=== PATIENT | male | born 1970 | race Caucasian/White ===

== ENCOUNTER 2023-03-09 11:26 | Outpatient (REF) | payer MEDICAID, SELFPAY ==
--- NOTE | ~2023-03-09 | XR_ITS ---
EXAMINATION: XR FOOT, LEFT CLINICAL INFORMATION: Wart under big toe. COMPARISON: None available. TECHNIQUE: AP, lateral, and oblique views of the left foot. FINDINGS: There is a soft tissue swelling along the medial/plantar aspect of the distal 1st toe. No periosteal reaction or bony destructive changes are identified in this region. There is a rounded lucency with well-defined margins in the proximal metadiaphysis of the 1st proximal phalanx, which has a nonaggressive appearance. No acute fracture is seen. Anatomic alignment. Vascular calcification. Posterior calcaneal spur. XR/XR foot LT min 3V IMPRESSION: Soft tissue swelling along the medial/plantar aspect of the distal 1st toe. No evidence of periosteal reaction or bony destructive changes in the region of soft tissue swelling. Nonaggressive-appearing lucent lesion in the proximal aspect 1st proximal phalanx.
== END 2023-03-09 11:27 | disposition home or self-care (01) ==
LOC: HO.XRAY 11:26
PROVIDERS: Visit Provider Internal Medicine
DX: L84 Corns and callosities (principal)
CPT/HCPCS: 73630

== ENCOUNTER 2023-06-17 13:33 | Emergency (ER) | payer MEDICAID, SELFPAY ==
--- NOTE | ~2023-06-17 | XR_ITS ---
EXAMINATION:XR ankle RT 2V CLINICAL INFORMATION: Reason for Exam abscess, r/o osteo COMPARISON: None TECHNIQUE: 3 views frontal lateral oblique of the ankle. FINDINGS: There is extensive soft tissue swelling posterior ankle. There is no fracture or dislocation. Ankle mortise is preserved. Tibial plafond and talar dome are intact. Medial and lateral malleoli are properly aligned. There are vascular calcifications. Subtalar joint is normal. There is no osteolytic or osteoblastic lesions. XR/XR ankle RT 2V IMPRESSION: - No radiographic evidence of osteomyelitis. - There are vascular calcifications. - Soft tissue swelling posterior to the ankle.
[2023-06-17 13:46] VITALS: BP 127/80; PULSE 89; RESP 20; TEMP 36.8; O2SAT 97; BMI 27.1
--- NOTE | 2023-06-17 16:04 | ED_ITS ---
HPI - General Adult General Chief complaint: Extremity Injury, Lower Stated complaint: Abscess R ankle Time Seen by Provider: 06/17/23 15:06 Source: patient and family Mode of arrival: ambulatory Limitations: no limitations History of Present Illness HPI narrative: Patient is a 52-year-old male with history of DM presenting to the emergency department with complaint of abscess to right ankle. States his PCP is aware and he had a scheduled appointment for 06/20 for incision and drainage, however, he spoke with his PCP earlier today who advised patient come to the ED for drainage sooner as the abscess had not decreased in size. Denies pain, denies fevers. Patient reports that he is supposed to have an MRI of his right ankle this week but is unsure why. 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 MD complaint: right ankle redness and swelling Onset (ago): week(s) Location: lower extremity Radiation: non-radiation Associated symptoms: denies other symptoms Treatments prior to arrival: none Related Data Previous Rx's Medication Instructions Recorded cephalexin 500 mg capsule 500 mg PO QID #28 caps 06/17/23 Allergies Allergy/AdvReac Type Severity Reaction Status Date / Time shellfish derived Allergy Nausea and Verified 06/17/23 13:51 Vomiting Review of Systems Review of Systems: As per HPI. Yes all other systems are reviewed and are negative Constitutional: Constitutional: Reports as per HPI [facility] Past Medical History Medical History 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 dysfunction Decreased strength Diabetes mellitus, type II HTN (hypertension) Low libido Social History Social History Advance Directives: No Advance Directives Information Provided: No Physical Exam ED Vital Signs: Vital Signs - 24 hr 06/17/23 13:46 06/17/23 16:14 Temperature 98.3 F 96.3 F L Pulse Rate 89 98 Respiratory Rate 20 14 Blood Pressure 127/80 150/88 H Pulse Oximetry 97 98 Oxygen Delivery Method Room Air Room Air BMI result Body Mass Index 27.1 Vital signs have been reviewed and appear to be correct. Blood pressure normal. Heart rate normal. Respiratory rate normal. Temperature normal. Oxygen saturation normal. Const General: cooperative, healthy appearing and no acute distress Orientation/consciousness: oriented to person, oriented to place, oriented to time and patient oriented x3 Limitations: no limitations HENMT Head: Yes normocephalic and Yes atraumatic Ears: external ears normal General nose exam: Normal external nose present Face and sinus: Yes face symmetric Mouth: oropharynx normal and moist mucous membranes Throat: Yes uvula midline Eyes Pupils: Equal, round and reactive pupils present Neck Neck: Yes normal visual inspection and Yes supple Resp Effort & Inspection: normal respiratory effort and able to speak in complete sentences Auscultation: clear to auscultation bilaterally Cardio Rate: regular rate Rhythm: regular rhythm Heart sounds: S1 normal heart sound present and S2 normal heart sound present GI Palpation (GI): Soft to palpation and nontender Auscultation: normoactive bowel sounds General: Yes no CVA tenderness Back/Spine/Pelvis Back: no CVA tenderness Skin General skin exam: elasticity normal and turgor normal Neuro General: oriented to person, oriented to place, oriented to time, patient oriented x3, moves all extremities, no focal motor deficits and CN's II-XI intact bilaterally Cranial nerves: Yes Equal, round and reactive pupils present Cognition (Neuro): normal cognition Extrem General: Yes full ROM, Yes no pedal edema and Yes no calf tenderness Right upper extremity: normal to inspection, full ROM and normal capillary re fill Left upper extremity: normal to inspection, full ROM and normal capillary refill Right lower extremity: ankle Details: abnormal to inspection Details: erythematous (erythema and fluctuance to posterior ankle) Left lower extremity: abnormal to inspection (in walking boot) Psych Mental Status: mental status grossly normal Affect: normal affect Thought process: Normal thought process present Medications Administered Discontinued Medications Generic Name Dose Route Start Last Admin Trade Name Lexq PRN Reason Stop Dose Admin Lidocaine HCl 5 ml 06/17/23 16:24 06/17/23 16:27 Lidocaine Hcl 1 % Mpf 5 Ml Vial INFILTRATI 06/17/23 16:25 5 ml ONCE ONE Administration Procedures Abscess I/D Site: lower extremity Side (if applicable): right Local Anesthetic: lidocaine 1% Amount of anesthesia used (mL): 3 Amount of fluid expressed (mL): 0 Sent for culture/gram staining?: No Irrigation: No Packing used?: none Medical Decision Making Medical Decision Making MDM Narrative: Patient is a 52-year-old male with history of DM presenting to the emergency department with complaint of abscess to right ankle. On exam patient is awake, A+Ox3, VS WNL, afebrile, normal neurological exam without focal deficits, erythema, swelling, and fluctuance to posterior ankle. Given reported symptoms and physical exam findings, initial differential includes abscess, cellulitis, retrocalcaneal bursitis. Low concern for osteomyelitis but will obtain x-ray. X-ray notable for soft tissue swelling to posterior ankle, no evidence of osteomyelitis. My interpretation is in agreement with the radiologist's interpretation. Drainage attempted as per procedure note. Given lack of purulence drainage, feel symptoms are more likely related to bursitis. Dressing and Juan Diego wrap applied to ankle. Following attempted drainage patient clarified that he already had the MRI of his ankle, he just has not received the results yet. Patient advised to keep ankle elevated while home, can use Tylenol if he develops pain to the area. Instructed patient to follow-up with PCP tomorrow. Will prescribe course of prophylactic antibiotics as drainage was attempted and patient is diabetic. Return precautions discussed at bedside. Patient ve rbalized understanding of and agreement with plan. Differential Diagnosis Differential Diagnoses: The differential diagnosis associated with the presentation includes As per MDM. Independent Interpretation I performed an independent interpretation of an: Plain X-Ray Interpretation: Posterior ankle soft tissue swelling, no osteomyelitis Radiology Impression Discussion of test interpretation with radiology: I have reviewed the radiologist's reading. Radiologist Impression: XR/XR ankle RT 2V IMPRESSION: ? - No radiographic evidence of osteomyelitis. ? - There are vascular calcifications. ? - Soft tissue swelling posterior to the ankle. External Record Review External record reviewed: Inpatient record, Office record and Outpatient record Prescription Management I considered prescription management with: Antibiotic Chronic Conditions Patient?s care impacted by: Diabetes Discharge Plan Discharge Clinical Impression: Ankle swelling Patient Disposition: Home, Self-Care Instructions: Ankle Bursitis (ED), Swollen Ankle Joint (ED) Additional Instructions: You were evaluated in the emergency department today for swelling to her right ankle. Drainage was attempted without any purulence discharge noted. Your symptoms are likely related to bursitis. Please use the Juan Diego wrap for compression and keep your foot elevated while at rest. Please follow-up with your primary care provider tomorrow to discuss this ED visit. You are being prescribed a course of antibiotics, please complete the full course as prescribed. Return to the emergency department if you develop worsening redness, swelling, pain, thick yellow drainage, redness streaking up your leg, fever 100.4? F or greater, or any other concerning symptoms. Prescriptions: New cephalexin 500 mg capsule 500 mg PO QID Qty: 28 0RF
[2023-06-17 16:14] VITALS: BP 150/88; PULSE 98; RESP 14; TEMP 35.7; O2SAT 98
[2023-06-17] MEDS: Lidocaine HCl 1 % MPF 5 ML VIAL INFILTRATI (16:27)
== END 2023-06-17 17:37 | disposition home or self-care (01) ==
PROVIDERS: Emergency Provider Emergency Medicine; PCP Internal Medicine
DX: L02.415 Cutaneous abscess of right lower limb (principal); I10 Essential (primary) hypertension; E11.9 Type 2 diabetes mellitus without complications
CPT/HCPCS: 10060; 73600; 99282; 99283

== ENCOUNTER 2023-06-29 10:17 | Outpatient (AMB) | payer MEDICAID, SELFPAY ==
--- NOTE | 2023-06-29 10:27 | A.OFFVIS_ITS ---
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 Patient reports his materials engineer in [place] ordered an MRI of right ankle. Before MRI was done PCP thought he had an abscess and sent him [facility] [place] [place] ED to have it drained. States that he received MRI results which showed a torn ankle. Currently he does not have a lot pain but continues to have swelling. Hx of neuropathy. 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 He states about 4 weeks ago he was walking when he noticed a pop sensation in the right achilles tendon region. He was still able to ambulate. At the time he was being treated by a materials engineer for a left toe amputation and was placed on abx. After feeling the pop in his achilles, he noticed some swelling in the area and was seen by his PCP who referred him to the ED. While in the ED, they attempted aspiration of the swelling , they felt he had an abscess and referred him to our office for further evaluation. He has a history of diabetes and neuropathy. [facility] Medical History (Updated 06/29/23 @ 11:26 by Jamarcus Mukherjee PA-C) History of amputation of toe HTN (hypertension) Diabetes mellitus, type II 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 dysfunction Decreased strength Low libido Social History (Updated 06/29/23 @ 10:37 by SANFORD Bernal) Patient Tobacco Use Status: Never used Tobacco Current occupational status: unemployed Review of Systems Const All systems reviewed & are unremarkable except as noted in HPI and below Physical Exam Const General: cooperative, healthy appearing, comfortable, no acute distress, well developed and alert Orientation/consciousness: patient oriented x3 HEENT Head: Yes normal to inspection, Yes normocephalic and Yes atraumatic Eyes General: appearance normal, both eyes and all related structures Resp Effort & Inspection: normal respiratory effort and able to speak in complete sentences Cardio Rate: regular rate Peripheral pulses: Peripheral pulses 2+ throughout GI Palpation (GI): Soft to palpation Skin Lesions: no lesions Rashes: no rashes Neuro General: patient oriented x3 Extrem Other: Right ankle: Normal to inspection, diffuse swelling throughout the ankle and up into the region of the Achilles. He does have tenderness with a palpable defect along the Achilles tendon with a Negative Cortes?s sign. NVI. Results Reviewed Results Reviewed: MRI of the right ankle shows achilles tendon rupture up to 4cm gap Assessment & Plan Assessment & Plan (1) Cutaneous abscess of right ankle: Code(s): L02.415 - Cutaneous abscess of right lower limb Plan Dr. Guerin was available to see the patient with me today. 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 The area of more concern here is the wound that he has over the region of the Achilles. Given his history of infection and diabetes, this should be treated appropriately with wound care. The area was debrided today in the office and packed with a wet to dry dressing. He was instructed on how to perform this while at home which he should do over the weekend twice a day. I will see him on Sunday for another wound check. A STAT referral to wound care was also placed so that they can continue to follow him. A prescription of Augmentin was also sent to his pharmacy which he will begin taking. He will see us back as planned. Orders: Referrals Wound Care Referral L02.415 - Cutaneous abscess of right lower limb Medications: New [SHOWER CHAIR] As directed 1 ea 0RF amoxicillin-pot clavulanate 500-125 mg (Augmentin) 1 tab PO BID 7 days 14 tabs 0RF Patient Instructions: Scribed for Jamarcus Mukherjee PA-C, by Mariano Hurt medical biller coder, on 06/29/2023 at 10:00 AM DEMARCO. Jamarcus Vera PA-C, have personally reviewed and agree with the information entered by the scribe. Coding Level of Care Code New Pt Level 4 (82660) Diagnoses Cutaneous abscess of right ankle L02.415
== END 2023-06-29 12:01 | disposition home or self-care (01) ==
PROVIDERS: PCP Internal Medicine; Visit Provider Physician Assistant
DX: L02.415 Cutaneous abscess of right lower limb (principal)
CPT/HCPCS: 99204

== ENCOUNTER → 2023-06-29 10:17 | Outpatient (BNVA) | payer MEDICAID, SELFPAY | PROVIDERS: PCP Internal Medicine; Visit Provider Physician Assistant | DX: L02.415 Cutaneous abscess of right lower limb (principal) | CPT/HCPCS: 99212 ==

== ENCOUNTER 2023-07-02 11:07 | Outpatient (AMB) | payer MEDICAID, SELFPAY ==
--- NOTE | 2023-07-02 11:08 | MHC.OFFVIS ---
Intake Vital Signs 07/02/23 11:11 Height 6 ft Weight 200 lb BMI 27.1 Intake Visit Reasons: OV - Right ankle bursitis/swollen ankle joint Intake Note: Caleb is a 52 year old male who presents today for a follow up of right ankle pain. Patient reports no pain at the moment but having concern of his open wound bleeding. Allergies piperacillin [From Zosyn] Allergy (Verified 07/02/23 11:11) Unknown shellfish derived Allergy (Verified 07/02/23 11:11) Nausea and Vomiting tazobactam [From Zosyn] Allergy (Verified 07/02/23 11:11) Unknown HPI OV - Right ankle bursitis/swollen ankle joint HPI Details 52-year-old male who presents in the office today for a wound check right achilles. He was seen in the clinic on 06/29/2023 status post 4 weeks prior noticing a popping sensation in the right achilles with edema. He was seen in the ED where the abscess was drained. The patient reports no pain while in the office today. He is concerned that his wound is open with bleeding. Patient is also being treat by a Tandem Mill Roller for left toe amputation. Patient has a history of diabetes mellitus and neuropathy. [facility] Medical History (Updated 06/29/23 @ 11:26 by Jamarcus Mukherjee PA-C) History of amputation of toe HTN (hypertension) Diabetes mellitus, type II 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 dysfunction Decreased strength Low libido Social History Patient Tobacco Use Status: Never used Tobacco Current occupational status: unemployed Review of Systems Const All systems reviewed & are unremarkable except as noted in HPI and below Physical Exam Vital Signs: BMI result Body Mass Index 27.1 Const General: cooperative, healthy appearing and no acute distress Resp Effort & Inspection: normal respiratory effort and able to speak in complete sentences Cardio Rate: regular rate Peripheral pulses: Peripheral pulses 2+ throughout GI Palpation (GI): Soft to palpation Skin Lesions: no lesions Rashes: no rashes Extrem Other: Right ankle: Posterior ankle has a pea sized open area with exposed tendon. No surrounding drainage or purulence. Able to dorsiflex and plantarflex. Diffuse edema at the achilles tendon attachment. Assessment & Plan Assessment & Plan (1) Cutaneous abscess of right ankle: Code(s): L02.415 - Cutaneous abscess of right lower limb Plan Mr. Arias is a 52-year-old male who presents in the office today for a wound check right achilles. He was seen in the clinic on 06/29/2023 status post 4 weeks prior noticing a popping sensation in the right achilles with edema. He was seen in the ED where the abscess was drained. The patient reports no pain while in the office today. He is concerned that his wound is open with bleeding. Patient is also being treat by a Tandem Mill Roller for left toe amputation. Patient has a history of diabetes mellitus and neuropathy. We preformed a dressing change while in the office today. A new wet to dry dressing was applied. We will continue to follow his stat referral to Wound Care so he can be seen by them with recommendations of appropriate treatment. He did not waste picker his prescription of Augmentin but states he will do so today. Follow up will be in 1 weeks for a wound check, or sooner if needed. Patient Instructions: Scribed for Cecy Collado PA-C by Marquita Montanez medical grade shoemaker, on 07/02/2023 at 11:11 am, EST. Coding Level of Care Code Est Pt Level 3 (71265) Diagnoses Cutaneous abscess of right ankle L02.415
[2023-07-02 11:11] VITALS: BMI 27.1
== END 2023-07-02 11:34 | disposition home or self-care (01) ==
PROVIDERS: PCP Internal Medicine; Visit Provider Physician Assistant
DX: L02.415 Cutaneous abscess of right lower limb (principal)
CPT/HCPCS: 99213

== ENCOUNTER → 2023-07-02 11:07 | Outpatient (BNVA) | payer MEDICAID, SELFPAY | PROVIDERS: PCP Internal Medicine; Visit Provider Physician Assistant | DX: L02.415 Cutaneous abscess of right lower limb (principal) | CPT/HCPCS: 99212 ==

== ENCOUNTER 2023-07-05 13:38 | Outpatient (AMB) | payer MEDICAID, SELFPAY ==
--- NOTE | 2023-07-05 13:45 | A.OFFVIS_ITS ---
Intake Vital Signs 07/05/23 13:49 Height 6 ft Weight 200 lb BMI 27.1 Intake Visit Reasons: OV - Right ankle bursitis/swollen ankle joint Intake Note: Caleb presents today for his cutaneous abscess of right ankle wound check visit . States he has doing dressing changes as best he can. States he has notice very little improvement. Allergies piperacillin [From Zosyn] Allergy (Verified 07/05/23 13:49) Unknown shellfish derived Allergy (Verified 07/05/23 13:49) Nausea and Vomiting tazobactam [From Zosyn] Allergy (Verified 07/05/23 13:49) Unknown HPI OV - Right ankle bursitis/swollen ankle joint HPI Details 52-year-old male who presents in the off ice today for a wound check and follow up of right ankle pain. The patient reports he has been doing the dressing changes as best he can. He states he has been trying to change the dressing 2 times a day. However, yesterday he states he was only able to change the dressing one time. He states he has notice very little improvement. He states it has had very minimal bleeding. Patient has a wound care appointment on 07/12/2023. He expresses that he would like to further pursue the hospital as he feels the ED did not fully evaluate his injury. Patient is being treat by a Durable Medical Equipment Technician for left toe amputation. Patient has a history of diabetes mellitus and neuropathy. [facility] Medical History (Updated 06/29/23 @ 11:26 by Jamarcus Mukherjee PA-C) History of amputation of toe HTN (hypertension) Diabetes mellitus, type II 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 dysfunction Decreased strength Low libido Social History Patient Tobacco Use Status: Never used Tobacco Current occupational status: unemployed Review of Systems Const All systems reviewed & are unremarkable except as noted in HPI and below Physical Exam Vital Signs: BMI result Body Mass Index 27.1 Const General: cooperative, healthy appearing and no acute distress Resp Effort & Inspection: normal respiratory effort and able to speak in complete sentences Cardio Rate: regular rate Peripheral pulses: Peripheral pulses 2+ throughout GI Palpation (GI): Soft to palpation Skin Lesions: no lesions Rashes: no rashes Extrem Other: Right ankle: Posterior ankle has a pea sized open area with exposed tendon. No surrounding drainage or purulence. Able to dorsiflex and plantarflex. Diffuse edema at the achilles tendon attachment. Assessment & Plan Assessment & Plan (1) Cutaneous abscess of right ankle: Code(s): L02.415 - Cutaneous abscess of right lower limb Plan Mr. Arias is a 52-year-old male who presents in the office today for a wound check and follow up of right ankle pain. The patient reports he has been doing the dressing changes as best he can. He states he has been trying to change the dressing 2 times a day. However, yesterday he states he was only able to change the dressing one time. He states he has notice very little improvement. He states it has had very minimal bleeding. Patient has a wound care appointment on 07/12/2023. He expresses that he would like to further pursue the hospital as he feels the ED did not fully evaluate his injury. He did ask my opinion on this matter, however, I did not see the patient while in the ED nor at his first appointment outpatient in our office. Therefore, I declined to comment any further. Patient is being treat by a Durable Medical Equipment Technician for left toe amputation. Patient has a history of diabetes mellitus and neuropathy. The patient had his dressing changed while in the office today. He will continue to changes the dressing 2 time a day. He was educated on worsening signs of infection, which include but are not limited to erythema, edema, pain, drainage, or warmth. If he is to experience any of these symptoms he is to contact the office immediately or present to the ED. He will follow up with Wound Care for further evaluation and treatment of the open wound. I discussed with the patient about treatments for the achilles, both conservative and surgical treatments. He would like to know why his PCP and the ED did not look further into the ankle to see if it was actually an abscess. Follow up with Orthopedics will be PRN, or sooner if needed. Patient Instructions: Scribed for Cecy Collado PA-C by rm Hanson scribe, on 07/05/2023 at 1:47 pm, EST. Coding Level of Care Code Est Pt Level 3 (68436) Diagnoses Cutaneous abscess of right ankle L02.415
[2023-07-05 13:49] VITALS: BMI 27.1
== END 2023-07-05 14:02 | disposition home or self-care (01) ==
PROVIDERS: PCP Internal Medicine; Visit Provider Physician Assistant
DX: L02.415 Cutaneous abscess of right lower limb (principal)
CPT/HCPCS: 99213

== ENCOUNTER → 2023-07-05 13:38 | Outpatient (BNVA) | payer MEDICAID, SELFPAY | PROVIDERS: PCP Internal Medicine; Visit Provider Physician Assistant | DX: L02.415 Cutaneous abscess of right lower limb (principal) | CPT/HCPCS: 99212 ==

== ENCOUNTER 2023-07-12 08:29 | Outpatient (RCR) | payer MEDICAID, SELFPAY | END 2023-10-31 17:00 | disposition home or self-care (01) | LOC: HO.WCC 08:29 | PROVIDERS: PCP Internal Medicine; Visit Provider Surgery | DX: E11.622 Type 2 diabetes mellitus with other skin ulcer (principal); L97.812 Non-pressure chronic ulcer of other part of right lower leg with fat layer exposed; M66.871 Spontaneous rupture of other tendons, right ankle and foot | CPT/HCPCS: 11042; 11043; 97597; 99212; 99213 ==

== ENCOUNTER 2023-09-17 15:02 | Outpatient (AMB) | payer MEDICAID, SELFPAY ==
--- NOTE | 2023-09-17 15:03 | MHC.OFFVIS ---
Intake Intake Visit Reasons: Erectile dysfunction Intake Note: New Patient presents for initial visit for erectile dysfunction Urology Medications: Viagra Blood Thinner: none Diabetic: yes Special Services Agent Required: No Accompanied by: Self / Same As Patient Allergies piperacillin [From Zosyn] Allergy (Verified 09/17/23 20:06) Unknown shellfish derived Allergy (Verified 09/17/23 20:06) Nausea and Vomiting tazobactam [From Zosyn] Allergy (Verified 09/17/23 20:06) Unknown Medication List - Last Reconciled 09/17/23 by LEAH Delarosa- amlodipine 5 mg PO DAILY canagliflozin-metformin 50-500 mg ER (Invokamet XR) 2 tabs PO QAM glipizide 5 mg PO TID ketoconazole 2% topical DAILY omeprazole 20 mg PO QAM [SHOWER CHAIR As directed] sildenafil (Viagra) 100 mg PO .prn PRN 90 days simvastatin 20 mg PO BEDTIME valsartan-hydrochlorothiazide 320-25 mg 1 tab PO DAILY HPI HPI Comments History of Present Illness Details Caleb is a pleasant 52-year-old male patient of Dr. Preciado. 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 He presents to the office today as a new patient for low libido and erectile dysfunction. In discussion with the patient today he reports noting erectile dysfunction since the age of [age] years old. He reports previously following up with Dr. Franks in the past at which time recommendations were made for a vacuum pump and penile ring along with p.o. erectile dysfunction medications for treatment of his erectile dysfunction. However, patient feels his erectile dysfunction is worsening as he is now experiencing low libido. Discussed at length affects of diabetes on erectile dysfunction. When asked he reports last A1c was approximately 8.0. He is also reporting retrograde ejaculation. He reports previously trying Viagra as well as Cialis however felt Viagra was more effective. When asked he denies any bothersome urinary issues. He reports be happy with current voiding parameters. He denies urinary urgency, urinary frequency, incontinence, nocturia, hematuria, dysuria, foul smelling urine, changes to urinary stream, flank pain, fever, and or chills. Discussed at length potential causes for erectile dysfunction and low libido. Discussed further workup with testosterone free and total as well as PSA. Discussed and stressed the importance of management of diabetes for improvement in erectile dysfunction. Discussed at length potential treatment options for erectile dysfunction. All questions were answered. [facility] Medical History (Updated 09/17/23 @ 16:02 by MIKE Delarosa) History of amputation of toe HTN (hypertension) Diabetes mellitus, type II 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 dysfunction Decreased strength Low libido Patient Tobacco Use Status: Never used Tobacco Current occupational status: unemployed Review of Systems Const Reports as per [facility] Eyes Reports no additional complaints ENT Reports no additional complaints Card Reports as per [facility] Resp Reports no additional complaints GI Reports as per [facility] Reports as per [facility] Musc Reports as per [facility] Neuro Reports no additional complaints Psych Reports no additional complaints Endo Reports as per HPI Physical Exam Const General: cooperative, comfortable, no acute distress, well developed, alert and awake Orientation/consciousness: patient oriented x3 Limitations: no limitations HEENT Head: Yes normal to inspection, Yes normocephalic and Yes atraumatic Ears: hearing grossly normal bilaterally Eyes General: appearance normal, both eyes and all related structures Neck Neck: Yes normal visual inspection and Yes trachea midline Chest Chest palpation & inspection: normal inspection of the chest Resp Effort & Inspection: normal respiratory effort and able to speak in complete sentences Cardio Rate: regular rate GI Inspection: Yes normal to inspection General: Yes no CVA tenderness Back/Spine/Pelvis Back: no CVA tenderness Skin General skin exam: no rashes or lesions noted Neuro General: patient oriented x3 Extrem General: Yes normal to inspection Psych Appearance: grossly normal and well kempt Mental Status: mental status grossly normal Speech and movement: Normal speech and movement present and Clear speech present Affect: normal affect Attitude: cooperative Thought process: Normal thought process present Thought content: Normal thought content present Insight: Fair insight present (Psych) Judgement: Fair judgement present (Psych) Results AMB Urinalysis, Automated UA Leukoctes 0 Amparo/uL Last Edit by Stevie Harper on 09/17/23 15:21 UA Nitrite Negative Last Edit by Stevie Harper on 09/17/23 15:21 UA Urobilinogen 0.2 mg/dL Last Edit by Stevie Harper on 09/17/23 15:21 UA Protein 0 mg/dL Last Edit by Stevie Harper on 09/17/23 15:21 UA pH 6.5 Last Edit by Stevie Harper on 09/17/23 15:21 UA Blood 0 Yadiel/uL Last Edit by Stevie Harper on 09/17/23 15:21 UA Specific [place] 1.010 Last Edit by Stevie Harper on 09/17/23 15:21 UA Ketone Negative Last Edit by Stevie Harper on 09/17/23 15:21 UA Bilirubin 0 mg/dL Last Edit by Stevie Harper on 09/17/23 15:21 UA Glucose 1000 mg/dL Last Edit by Stevie Harper on 09/17/23 15:21 Results Reviewed Results Reviewed: Laboratory Last Values Urine pH (Auto) 6.5 09/17/23 15:09 Specific [place] (Auto) 1.010 09/17/23 15:09 Urine Protein (Auto) 0 mg/dL 09/17/23 15:09 Glucose (UA)(Auto) 1000 mg/dL 09/17/23 15:09 Urine Ketones (Auto) Negative 09/17/23 15:09 Urine Blood (Auto) 0 Yadiel/uL 09/17/23 15:09 Urine Nitrite (Auto) Negative 09/17/23 15:09 Urine Bilirubin (Auto) 0 mg/dL 09/17/23 15:09 Urine Urobilinogen (Auto) 0.2 mg/dL 09/17/23 15:09 Leukocyte Esterase (Auto) 0 Amparo/uL 09/17/23 15:09 Assessment & Plan Assessment & Plan (1) Low libido: Code(s): R68.82 - Decreased libido (2) Erectile dysfunction associated with type 2 diabetes mellitus: Code(s): E11.69 - Type 2 diabetes mellitus with other specified complication; N52.1 - Erectile dysfunction due to diseases classified elsewhere Plan In office urinalysis results reviewed with the patient today; as noted above. Discussed at length potential causes of erectile dysfunction and low libido. Discussed at length potential treatment options for erectile dysfunction. Start as needed Viagra as discussed and prescribed. Discussed and stressed the importance of managing diabetes for improvement in erectile dysfunction as well as overall health and well-being. Will obtain PSA, testosterone, free testosterone, and SHBG for further assessment evaluation. Patient denies any bothersome urinary issues at this time. Patient reports to be happy with current voiding parameters. Follow-up in 2-4 weeks with labs to be completed prior; or sooner with any issues, concerns, and or questions. Orders: Orders AMB Urinalysis Automated Today Z13.9 - Encounter for screening, unspecified Prostate Specific Antigen Today N40.0 - Benign prostatic hyperplasia without lower urinary tract symptoms Sex Hormone Binding Globulin Today E11.69 - Type 2 diabetes mellitus with other specified complication, N52.1 - Erectile dysfunction due to diseases classified elsewhere, R68.82 - Decreased libido Testosterone, Free/Total Today E11.69 - Type 2 diabetes mellitus with other specified complication, N52.1 - Erectile dysfunction due to diseases classified elsewhere Medications: New sildenafil (Viagra) [id number] [facility] [id number] Member [id number] 100 mg PO .prn 90 days PRN 30 tabs 0RF sexual activity Patient Instructions: The patient had an opportunity to ask questions regarding the treatment plan. All questions were answered. Physical exam, labs, and imaging were discussed and reviewed in detail. As well as risks, benefits, and discussion of treatment choices. No major barriers to understanding were identified. The patient expressed understanding and agreement with the above treatment plan. The patient was made aware they should contact our office by phone for worsening of their current condition, the appearance of new symptoms, or with any questions or concerns. Compliance is encouraged with any medications and follow up testing that is ordered. It is a privilege to be allowed the opportunity to participate in? your urological care.? Again, if you have any questions or concerns If you have any questions or concerns please do not hesitate to contact me. The office is [phone]. This note is constructed using voice recognition software. While every effort has been made to ensure accuracy glazing machine operator errors may have been included. Yours sincerely, MIKE Delarosa Coding Level of Care Code New Pt Level 4 (34943) Diagnoses Low libido R68.82 Erectile dysfunction associated with type 2 diabetes mellitus E11.69; N52.1
== END 2023-09-17 15:57 | disposition home or self-care (01) ==
PROVIDERS: PCP Internal Medicine; Referring Provider Internal Medicine; Visit Provider Nurse Practitioner Family
DX: R68.82 Decreased libido (principal); E11.69 Type 2 diabetes mellitus with other specified complication; N52.1 Erectile dysfunction due to diseases classified elsewhere; Z13.9 Encounter for screening, unspecified
CPT/HCPCS: 99204

== ENCOUNTER → 2023-09-17 15:02 | Outpatient (BNVA) | payer MEDICAID, SELFPAY | PROVIDERS: PCP Internal Medicine; Referring Provider Internal Medicine; Visit Provider Nurse Practitioner Family | DX: N40.0 Benign prostatic hyperplasia without lower urinary tract symptoms (principal); E11.69 Type 2 diabetes mellitus with other specified complication; N52.03 Combined arterial insufficiency and corporo-venous occlusive erectile dysfunction; N53.14 Retrograde ejaculation; R68.82 Decreased libido | CPT/HCPCS: 81003; 99212 ==

== ENCOUNTER 2023-09-21 09:02 | Outpatient (REF) | payer MEDICAID, SELFPAY ==
[2023-09-21 11:02] LABS: Prostate Specific Antigen 1.87 ng/mL (<0.05-4.0)
[2023-09-22 06:44] LABS: Sex Hormone Binding Globulin 35 nmol/L (10-50)
[2023-09-25 23:29] LABS: Testosterone, Free 54.6 pg/mL (35.0-155.0); Testosterone, Total 323 ng/dL (250-1100)
== END 2023-09-21 09:03 | disposition home or self-care (01) ==
LOC: HO.LAB 09:02
PROVIDERS: PCP Internal Medicine; Visit Provider Nurse Practitioner Family
DX: E11.69 Type 2 diabetes mellitus with other specified complication (principal); N52.1 Erectile dysfunction due to diseases classified elsewhere; R68.82 Decreased libido; N40.0 Benign prostatic hyperplasia without lower urinary tract symptoms
CPT/HCPCS: 36415; 84153; 84270; 84402; 84403

== ENCOUNTER 2023-10-08 15:27 | Outpatient (AMB) | payer MEDICAID, SELFPAY ==
--- NOTE | 2023-10-08 15:27 | A.OFFVIS_ITS ---
Intake Intake Visit Reasons: 2w/labs(set) Intake Note: Patient presents for follow up visit for erectile dysfunction/labs (psa 1.87) (testosterone 323) Urology Medications: Viagra Blood Thinner: none Diabetic: yes Cook Helper Juice Required: No Accompanied by: Self / Same As Patient Allergies piperacillin [From Zosyn] Allergy (Verified 10/08/23 19:51) Unknown shellfish derived Allergy (Verified 10/08/23 19:51) Nausea and Vomiting tazobactam [From Zosyn] Allergy (Verified 10/08/23 19:51) Unknown Medication List - Last Reconciled 10/08/23 by REHANA DelarosaP- amlodipine 5 mg PO DAILY canagliflozin-metformin 50-500 mg ER (Invokamet XR) 2 tabs PO QAM glipizide 5 mg PO TID ketoconazole 2% topical DAILY omeprazole 20 mg PO QAM [SHOWER CHAIR As directed] sildenafil (Viagra) 100 mg PO .prn PRN 90 days simvastatin 20 mg PO BEDTIME tadalafil (Cialis) 5 mg PO DAILY 90 days valsartan-hydrochlorothiazide 320-25 mg 1 tab PO DAILY HPI HPI Comments History of Present Illness Details Caleb is a pleasant 53-year-old male patient of Dr. Preciado. 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 He is being followed up on today via telehealth for follow-up of his low libido and erectile dysfunction. Of note, patient was seen approximately 1 month ago at which time testosterone, free testosterone, SHBG, and PSA were ordered for further assessment evaluation. These results reviewed with the patient today. 10/13--PSA: 1.9 10/13--Testosterone: 323 free Testostero ne: 54.6 10/13--SHGB: 35 In discussion with the patient today he reports noting erectile dysfunction since the age of [age] years old. He reports previously following up with Dr. Franks in the past at which time recommendations were made for a vacuum pump and penile ring along with p.o. erectile dysfunction medications for treatment of his erectile dysfunction. However, patient feels his erectile dysfunction is worsening as he is now experiencing low libido. Discussed at length affects of diabetes on erectile dysfunction. When asked he reports last A1c was approximately 8.0. He is also reporting retrograde ejaculation. Discussed trial of low-dose 5 mg of Cialis daily with as needed p.r.n. dosing 1-2 hours prior to sexual activity. Patient reports feeling Viagra is somewhat affective for his erectile dysfunction. Discussed at length treatment options for erectile dysfunction. Patient would like to continue with p.o. medications at this time. He otherwise denies any bothersome urinary issues. He reports be happy with current voiding parameters. He denies urinary urgency, urinary frequency, incontinence, nocturia, hematuria, dysuria, foul-smelling urine, changes to urinary stream, flank pain, fever, and or chills. Discussed at length potential causes for erectile dysfunction and low libido. Discussed and stressed the importance of management of diabetes for improvement in erectile dysfunction. Discussed at length potential treatment options for erectile dysfunction. All questions were answered. [facility] Medical History History of amputation of toe HTN (hypertension) Diabetes mellitus, type II 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 dysfunction Decreased strength Low libido Social History Patient Tobacco Use Status: Never used Tobacco Current occupational status: unemployed Review of Systems Const Reports as per HPI Eyes Reports no additional complaints ENT Reports no additional complaints Card Reports as per HPI Resp Reports no additional complaints GI Reports as per HPI Reports as per HPI Musc Reports as per HPI Neuro Reports no additional complaints Psych Reports no additional complaints Endo Reports as per HPI Physical Exam Const General: cooperative Resp Effort & Inspection: able to speak in complete sentences Psych Attitude: cooperative Thought content: Normal thought content present Insight: Fair insight present (Psych) Judgement: Fair judgement present (Psych) Assessment & Plan Assessment & Plan (1) Low libido: Code(s): R68.82 - Decreased libido (2) Erectile dysfunction associated with type 2 diabetes mellitus: Code(s): E11.69 - Type 2 diabetes mellitus with other specified complication; N52.1 - Erectile dysfunction due to diseases classified elsewhere Plan Recent labs reviewed the patient today; as noted above Discussed at length potential causes of erectile dysfunction and low libido. Discussed at length potential treatment options for erectile dysfunction. Start Cialis 5 mg daily Discussed and stressed the importance of managing diabetes for improvement in erectile dysfunction as well as overall health and well-being. Patient denies any bothersome urinary issues at this time. Patient reports to be happy with current voiding parameters. Will obtain testosterone in 3 months Follow-up in 3 months with labs to be completed prior; or sooner with any issues, concerns, and or questions. Orders: Orders Testosterone, Free/Total Today E11.69 - Type 2 diabetes mellitus with other specified complication, N52.1 - Erectile dysfunction due to diseases classified elsewhere Medications: New tadalafil (Cialis) Show this coupon at the pharmacy. [id number] [facility] [id number] Member [id number] 5 mg PO DAILY 90 days 90 tabs 0RF Patient Instructions: The patient had an opportunity to ask questions regarding the treatment plan. All questions were answered. Physical exam, labs, and imaging were discussed and reviewed in detail. As well as risks, benefits, and discussion of treatment choices. No major barriers to understanding were identified. The patient expressed understanding and agreement with the above treatment plan. The patient was made aware they should contact our office by phone for worsening of their current condition, the appearance of new symptoms, or with any questions or concerns. Compliance is encouraged with any medications and follow up testing that is ordered. It is a privilege to be allowed the opportunity to participate in? your urological care.? Again, if you have any questions or concerns If you have any questions or concerns please do not hesitate to contact me. The office is [phone]. This note is constructed using voice recognition software. While every effort has been made to ensure accuracy industrial automation engineer errors may have been included. Yours sincerely, REHANA Del[facility]osaW[facility] Telehealth Telehealth Location of provider rendering services: practice address Location of patient: address on file Patient Identification confirmed using: Name, : Yes Telehealth method: voice only Patient verbally consented to treatment: Yes Patient verbally consented to billing insurance company: Yes Patient informed of any privacy concerns related to visit: Yes Minutes spent on Phone/Video with Pt.: 15 Coding Level of Care Code Tele Est Pt Level 3 (33490) Diagnoses Low libido R68.82 Erectile dysfunction associated with type 2 diabetes mellitus E11.69; N52.1 Time Spent (min) 15
== END 2023-10-08 16:08 | disposition home or self-care (01) ==
LOC: HO.HUSH 15:27
PROVIDERS: PCP Internal Medicine; Visit Provider Nurse Practitioner Family
DX: R68.82 Decreased libido (principal); E11.69 Type 2 diabetes mellitus with other specified complication; N52.1 Erectile dysfunction due to diseases classified elsewhere
CPT/HCPCS: 99213

== ENCOUNTER → 2023-10-08 15:27 | Outpatient (BNVA) | payer MEDICAID, SELFPAY | PROVIDERS: PCP Internal Medicine; Visit Provider Nurse Practitioner Family ==

== ENCOUNTER 2024-01-11 08:44 | Outpatient (RCR) | payer MEDICAID, SELFPAY ==
--- NOTE | ~2024-01-11 | XR_ITS ---
EXAMINATION: XR FOOT, LEFT CLINICAL INFORMATION: Nonhealing wound left foot, attention plantar first metatarsal, rule out osteomyelitis. COMPARISON: 03/09/2023 TECHNIQUE: AP, lateral, and oblique views of the left foot. FINDINGS: Interval resection of the great toe and distal aspect of the first metatarsal. Extensive vascular calcifications. Small dorsal calcaneal spur. The distal plantar aspect of the partially resected first metatarsal demonstrates cortical irregularity, possibly related to postsurgical change, but could also consider osteomyelitis given the clinical history presented. There is also deformity at the distal aspect of the second metatarsal with attenuated appearance of the second metatarsal head and abundant adjacent hypertrophic bone. More moderate interval destructive changes are seen at the third and fourth metatarsal heads. XR/XR foot LT min 3V IMPRESSION: 1. Interval resection of the great toe and distal aspect of the first metatarsal. The distal plantar aspect of the partially resected first metatarsal demonstrates cortical irregularity, possibly related to postsurgical change, but could also consider osteomyelitis given the clinical history presented. 2. There is also deformity at the distal aspect of the second metatarsal with attenuated appearance of the second metatarsal head and abundant adjacent hypertrophic bone. More moderate interval destructive changes are seen at the third and fourth metatarsal heads. Differential considerations include postsurgical/trauma change, degenerative process, and/or osteomyelitis or other process. 3. Recommend correlation with clinical exam and additional and possibly additional imaging with MRI to determine further management.
[2024-01-11 10:25] LABS: MANUAL DIFF FLAG NO
[2024-01-11 10:42] LABS: Basophils Percent Auto 0.5 % (0-2); Eosinophils Absolute Auto 0.3 X10*3/uL (0.0-0.4); Eosinophils Percent Auto 4.2 % (0-4); Hematocrit 37.3 % (42.0-52.0); Hemoglobin 11.9 g/dl (14.0-18.0); Imm Gran Abs Auto 0.01 X10*3/uL (0.00-0.03); Imm Gran Pct Auto 0.2 % (0.0-0.4); Lymphocytes Absolute Auto 1.6 X10*3/uL (1.2-4.9); Lymphocytes Percent Auto 25.5 % (20-40); Mean Corpuscular HGB Conc 31.9 g/dl (31.0-36.0); Mean Corpuscular Hemoglobin 27.9 pg (27.0-33.0); Mean Corpuscular Volume 87.6 fL (80.0-98.0); Mean Platelet Volume 9.6 fL (9.4-12.4); Monocytes Absolute Auto 0.4 X10*3/uL (0.1-1.2); Neutrophils Absolute Auto 3.9 x10*3/uL (2.0-8.3); Neutrophils Percent Auto 62.6 % (45-73); Platelet Count 262 X10*3/uL (160-400); Red Blood Count 4.26 X10*6/uL (4.60-5.80); Red Cell Distribution Width 14.3 % (11.0-16.0); White Blood Count 6.2 X10*3/uL (4.8-10.8)
[2024-01-11 10:52] LABS: Estimated Average Glucose 143 mg/dL; Hemoglobin A1c % 6.6 % (<6.0)
[2024-01-11 11:11] LABS: Anion Gap 11 (12-20); Blood Urea Nitrogen 30 mg/dL (9-16); C Reactive Protein 0.21 mg/dL (< or = 0.50); Calcium 9.2 mg/dL (8.4-10.2); Carbon Dioxide 26 mmol/L (22-29); Chloride 108 mmol/L (96-108); Estimated Glomerular Filt Rate 52; Glucose Random 81 mg/dL (60-115); Sodium 140 mmol/L (135-145)
[2024-01-11 11:28] LABS: Erythrocyte Sedimentation Rate 23 MM/HR (0-15)
== END 2024-06-13 10:30 | disposition home or self-care (01) ==
LOC: HO.WCC 08:44
PROVIDERS: Physician Assistant; PCP Internal Medicine; Visit Provider Surgery
DX: E11.621 Type 2 diabetes mellitus with foot ulcer (principal); L97.522 Non-pressure chronic ulcer of other part of left foot with fat layer exposed; E11.40 Type 2 diabetes mellitus with diabetic neuropathy, unspecified; I10 Essential (primary) hypertension; M86.672 Other chronic osteomyelitis, left ankle and foot; Z89.429 Acquired absence of other toe(s), unspecified side
CPT/HCPCS: 11042; 36415; 73630; 80048; 83036; 84134; 85025; 85652; 86140

== ENCOUNTER 2024-02-26 15:21 | Outpatient (REF) | payer MEDICAID, SELFPAY ==
--- NOTE | ~2024-02-26 | MR_ITS ---
EXAMINATION: MR FOOT WITHOUT AND WITH CONTRAST, LEFT CLINICAL INFORMATION: Wound at the first metatarsal head. Evaluate for osteomyelitis. Swelling. Prior surgery. COMPARISON: Left foot radiographs dated 03/09/2023 and 01/11/2024. TECHNIQUE: MRI of the left foot was performed before and after the intravenous administration of 9 mL Gadavist on a high-field scanner. FINDINGS: Postsurgical change consistent with first metatarsal and phalangeal resection is redemonstrated. Soft tissue ulceration along the medial/plantar aspect of the surgical area with mild skin thickening and mild postcontrast enhancement which could represent postsurgical result versus chronic cellulitis. No organized fluid collection or drainable abscess formation. There is prominent marrow edema throughout the second through fifth metatarsals as well as within the middle and lateral cuneiforms and cuboid. Minimal edema within the medial cuneiform. Prominent associated postcontrast enhancement. Bony remodeling with chronic periosteal reaction at the second metatarsal head as well as, to a lesser degree, at the third and fourth metatarsal heads. Findings could represent sequela of chronic osteomyelitis. Chronic stress injuries could be considered, however, are thought less likely. The visualized flexor and extensor tendons are intact. Edema throughout the intrinsic musculature of the foot. Intact Lisfranc ligament. Synovial recess versus ganglion cyst along the lateral aspect of the fifth tarsometatarsal joint measuring up to 2.7 cm. Diffuse, full-thickness articular cartilage loss at the tarsometatarsal joints with underlying subchondral cystic change, most severe at the fifth tarsometatarsal joint. MR/MR foot LT wo/w con IMPRESSION: 1. Postsurgical change consistent with first metatarsal and phalangeal resection. Soft tissue ulceration along the medial/plantar aspect of the surgical area with mild skin thickening and postcontrast enhancement which could represent postsurgical result versus chronic cellulitis. No organized fluid collection or drainable abscess formation. No evidence of osteomyelitis within the persistent first metatarsal. 2. Prominent marrow edema throughout the second through fifth metatarsals as well as within the middle and lateral cuneiforms and cuboid. Prominent bony remodeling and chronic periosteal reaction at the second metatarsal head as well as less prominently at the third and fourth metatarsal heads. Minimal edema within the medial cuneiform. Findings could represent sequela of chronic osteomyelitis. Chronic stress injuries could be considered, however, are thought less likely. 3. Prominent osteoarthritis at the tarsometatarsal joints, most severe at the fifth tarsometatarsal joint. Synovial recess versus ganglion cyst along the lateral aspect of the fifth tarsometatarsal joint measuring up to 2.7 cm.
[2024-02-26] MEDS: gadobutroL 10 ML VIAL IVPUSH (16:18)
== END 2024-02-26 15:22 | disposition home or self-care (01) ==
LOC: HO.MRI 15:21
PROVIDERS: PCP Internal Medicine; Visit Provider Internal Medicine
DX: S91.302A Unspecified open wound, left foot, initial encounter (principal)
CPT/HCPCS: 73720; A9585

== ENCOUNTER 2024-03-14 07:15 | Emergency (ER) | payer MEDICAID, SELFPAY ==
--- NOTE | ~2024-03-14 | XR_ITS ---
EXAMINATION: XR FOOT, LEFT CLINICAL INFORMATION: New second digit wound. COMPARISON: 02/26/2024 and 01/11/2024 TECHNIQUE: AP, lateral, and oblique views of the left foot. FINDINGS: Status post resection of the great toe and distal first metatarsal. Vascular calcifications are present. There is stable deformity of the second through fourth metatarsal heads. There is new ulceration involving the distal aspect of the second toe. There is no underlying bone destruction or significant periosteal reaction. XR/XR foot LT min 3V IMPRESSION: New ulceration involving the distal second toe without underlying bony abnormality.
[2024-03-14 07:20] VITALS: BP 159/88; PULSE 90; RESP 18; TEMP 36.2; O2SAT 98; BMI 27.9
[2024-03-14 07:49] VITALS: BP 143/83; PULSE 80; RESP 18; TEMP 36.7; O2SAT 97
[2024-03-14 07:57] LABS: Glucose, Whole Blood 179 mg/dL (60-115)
--- NOTE | 2024-03-14 09:15 | ED.LOWEXIN ---
HPI - Extremity Injury (Lower) General Chief Complaint: Extremity Injury, Lower Stated Complaint: toe inj Time Seen by Provider: 03/14/24 09:15 Source: patient Mode of arrival: ambulatory Limitations: no limitations History of Present Illness HPI Narrative: Patient is a 53-year-old male with past medical history of diabetes who presents emergency department for evaluation of a new wound to the left 2nd digit. Reports that something must have happened overnight . Does not recall exact events. But when he awoke this morning there was drainage and blood coming from the toe. He wrapped it with a bandage in sought evaluation here in the emergency department. He reports a history of a diabetic wound to the plantar aspect of the left foot MTP, which he is following with [facility] and Dr. Lima, states that a recent MRI has shown osteomyelitis, he has not currently on any antibiotics, he is awaiting to see infectious disease on 03/19/2024. Related Data Home Medications ?Medication ?Instructions ?Recorded ?Confirmed amlodipine 5 mg tablet 5 mg PO DAILY 06/29/23 canagliflozin 50 mg-metformin ER 2 tab PO QAM 06/29/23 500 mg tablet,extended release 24 hr (Invokamet XR) glipizide 5 mg tablet 5 mg PO TID 06/29/23 ketoconazole 2 % shampoo topical DAILY 06/29/23 omeprazole 20 mg capsule,delayed 20 mg PO QAM 06/29/23 release simvastatin 20 mg tablet 20 mg PO BEDTIME 06/29/23 valsartan 320 1 tab PO DAILY 06/29/23 mg-hydrochlorothiazide 25 mg tablet Previous Rx's ?Medication ?Instructions ?Recorded SHOWER CHAIR #1 ea 06/29/23 sildenafil 100 mg tablet (Viagra) 100 mg PO .prn PRN sexual activity 09/19/23 90 days #30 tabs tadalafil 5 mg tablet (Cialis) 5 mg PO DAILY 90 days #90 tabs 10/08/23 cephalexin 500 mg capsule 500 mg PO QID #27 caps 03/14/24 doxycycline hyclate 100 mg capsule 100 mg PO BID #13 caps 03/14/24 Allergies Allergy/AdvReac Type Severity Reaction Status Date / Time piperacillin [From Zosyn] Allergy Unknown Verified 03/14/24 07:21 shellfish derived Allergy Nausea and Verified 03/14/24 07:21 Vomiting tazobactam [From Zosyn] Allergy Unknown Verified 03/14/24 07:21 Review of Systems Review of Systems: Yes all other systems are reviewed and are negative [facility] Past Medical History Attestation statement: The following information was validated with the patient. Source: old records reviewed Medical History HTN (hypertension) Diabetes mellitus, type II 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 dysfunction Decreased strength Low libido Surgical History History of amputation of toe Social History Social History Patient Tobacco Use Status: Never used Tobacco Advance Directives: No Current occupational status: unemployed Physical Exam Vital Signs: Vital Signs: Last Vital Signs Temp 98.2 F 03/14/24 11:05 Pulse 72 03/14/24 11:05 Resp 16 03/14/24 11:05 BP 131/80 03/14/24 11:05 Pulse Ox 98 03/14/24 11:05 O2 Del Method Room Air 03/14/24 11:05 BMI result Body Mass Index 27.9 Appearance: Alert.?Oriented to person, place and time. No acute distress.?Normal affect.? Neck: Normal inspection.? Neck supple.?? CVS: Heart sounds normal. Normal heart rate and rhythm.? Pulses normal.?? Respiratory: No respiratory distress.? Lung sounds clear to auscultation bilaterally?? Skin: Skin warm and dry.? Normal skin color.? Extremities: No lower extremity edema.? No calf ttp. Avulsion of nail to left 2nd digit of foot with surrounding erythema and swelling, tenderness upon palpation. Neuro: Moves all extremities spontaneously. Sensation intact bilaterally. Ambulates with normal steady gait. Medical Decision Making Medical Decision Making MDM Narrative: patient is a 53-year-old male with past medical history of type 2 diabetes, hypertension who presents emergency department for evaluation of a new wound to the left 2nd digit as per HPI of unknown etiology. XR was obtained to exclude osseous abnormality including fracture/dislocation there is no acute abnormality, aside from ulceration to the distal tip of the digit as seen on physical examination.. wound was cleansed with normal saline and povidone iodine and a wet-to-dry dressing was applied. Will treat with cephalexin and doxycycline and advised close outpatient follow-up with [facility]/primary care provider. Discussed worrisome signs and symptoms that would warrant re-evaluation in the emergency department. All questions answered. Stable for discharge. Differential Diagnosis Differential Diagnoses: The differential diagnosis associated with the presentation includes ( Avulsion of the nail, paronychia, cellulitis, fracture, dislocation, osteomyelitis) Admission/Observation Consideration of admission/observation: Escalation of care including admission/observation considered Lab Data MDM Lab Attestation statement: I reviewed the patient's lab results. Labs: Lab Results 03/14/24 Range/Units 07:53 POC Glucose 179 H (60-115) mg/dL Independent Interpretation I performed an independent interpretation of an: Plain X-Ray ( No acute fracture or osseous abnormality) Radiology Impression Discussion of test interpretation with radiology: I have reviewed the radiologist's reading. Radiologist Impression: XR/XR foot LT min 3V IMPRESSION: New ulceration involving the distal second toe without underlying bony abnormality. External Record Review External record reviewed: Outpatient record Prescription Management I considered prescription management with: Antibiotic Chronic Conditions Patient?s care impacted by: Diabetes Discharge Plan Discharge Clinical Impression: Nail avulsion of toe, Cellulitis of toe of left foot Patient Disposition: Home, Self-Care Instructions: Cellulitis (ED), Nail Avulsion (ED) Additional Instructions: x-ray today does not show any new abnormality to the 2nd toe. Please follow-up closely with wound care/primary care provider for further management of this wound to your 2nd toe. The nail is completely avulsed. I am starting you on 2 different antibiotics cephalexin and doxycycline, please complete the entire course as prescribed. On doxycycline, do not take pills immediately before going to bed and swallow pills with plenty of water. Avoid direct sunlight, iron, antacids, and Pepto Bismol. Call your provider if you develop new ringing in your ears, new problems hearing, dizziness, difficulty swallowing, rash, abdominal discomfort, nausea, or diarrhea.? If you develop new or worsening symptoms or concerns you may return back to emergency department for evaluation. If you develop increasing redness, swelling, extension up the foot, fevers, chills, increased drainage from the site then this should be re-evaluated. Prescriptions: New cephalexin 500 mg capsule 500 mg PO QID Qty: 27 0RF doxycycline hyclate 100 mg capsule 100 mg PO BID Qty: 13 0RF No Action sildenafil [Viagra] 100 mg tablet 100 mg PO .prn PRN (Reason: sexual activity) 90 Days Qty: 30 0RF Rx Instructions: [id number] [facility] [id number] Member [id number] tadalafil [Cialis] 5 mg tablet 5 mg PO DAILY 90 Days Qty: 90 0RF Rx Instructions: Show this coupon at the pharmacy. [id number] [facility] [id number] omeprazole 20 mg capsule,delayed release(DR/EC) 20 mg PO QAM Invokamet XR 50-500 mg tablet, IR - ER, biphasic 24hr 2 tab PO QAM simvastatin 20 mg tablet 20 mg PO BEDTIME valsartan-hydrochlorothiazide 320-25 mg tablet 1 tab PO DAILY amlodipine 5 mg tablet 5 mg PO DAILY glipizide 5 mg tablet 5 mg PO TID ketoconazole 2 % shampoo topical DAILY (DME) SHOWER CHAIR See Rx Instructions .ROUTE .MEDSUPPLY Qty: 1 0RF Rx Instructions: As directed Referrals: Alma Rosa Preciado MD [Primary Care Provider] - Print Language: [place] Islander
[2024-03-14 11:05] VITALS: BP 131/80; PULSE 72; RESP 16; TEMP 36.8; O2SAT 98
[2024-03-14] MEDS: Doxycycline Monohydrate 100 MG CAPSULE PO (11:50)
[2024-03-14] MEDS: cephALEXin 500 MG CAPSULE PO (11:50)
[2024-03-14 11:58] VITALS: BP 131/80; PULSE 72; RESP 16; TEMP 36.8; O2SAT 98
== END 2024-03-14 11:59 | disposition home or self-care (01) ==
PROVIDERS: Emergency Provider Emergency Medicine Emergency Medical Services; PCP Internal Medicine
DX: L03.032 Cellulitis of left toe (principal); S91.202A Unspecified open wound of left great toe with damage to nail, initial encounter; X58.XXXA Exposure to other specified factors, initial encounter; Y93.9 Activity, unspecified; Y92.9 Unspecified place or not applicable; Y99.9 Unspecified external cause status
CPT/HCPCS: 73630; 82947; 99283; 99284

== ENCOUNTER 2024-03-19 14:16 | Outpatient (AMB) | payer MEDICAID, SELFPAY ==
--- NOTE | 2024-03-19 14:17 | A.OFFVIS_ITS ---
Vital Signs 3 03/19/24 14:18 Height 6 ft Weight 213 lb BMI 28.9 Pulse 79 Pulse Source Pulse Oximeter Temp 98.4 F Temp Source Oral Pulse Oximetry (%) 99 Oxygen Delivery Method Room Air Intake Visit Reasons: reff wound care/osteo left foot Allergies piperacillin [From Zosyn] Allergy (Verified 03/19/24 14:31) Unknown shellfish derived Allergy (Verified 03/19/24 14:31) Nausea and Vomiting tazobactam [From Zosyn] Allergy (Verified 03/19/24 14:31) Unknown HPI HPI reff wound care/osteo left foot: Details: He has left foot with chronic wound. He started with blister May 2023. He had callus great toe before blister and then callus formed around. He did have left great toe amputation. He also had right great toe infection improved. He has had wound plantar left since 10/2023. MRI shows possible chronic OM. He has some redness recently and received Keflex 500 mg qid 03/14 #27 and Doxycycline 100 mg bid on 03/14. [facility] Medical History HTN (hypertension) Diabetes mellitus, type II 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 dysfunction Decreased strength Low libido Surgical History History of amputation of toe Social History Patient Tobacco Use Status: Never used Tobacco Current occupational status: unemployed Review of Systems Const All systems reviewed & are unremarkable except as noted in HPI and below Physical Exam Vital Signs: Last Vital Signs Temp 98.4 F 03/19/24 14:18 Pulse 79 03/19/24 14:18 Pulse Ox 99 03/19/24 14:18 Oxygen Delivery Method Room Air 03/19/24 14:18 BMI result Body Mass Index 28.9 Const Other: General: cooperative Orientation/consciousness: patient oriented x3 HEENT Head: Yes normal to inspection Mouth: Normal oral and palatal mucosa present Eyes General: appearance normal, both eyes and all related structures Pupils: Equal, round and reactive pupils present Resp Effort & Inspection: normal respiratory effort Cardio Rate: regular rate Rhythm: regular rhythm GI Palpation (GI): Soft to palpation and nontender General: Yes no CVA tenderness Back/Spine/Pelvis Back: no CVA tenderness Skin General skin exam: no rashes or lesions noted Neuro General: patient oriented x3 Cranial nerves: Yes CN's II-XII intact bilaterally and Yes Equal, round and reactive pupils present Extrem Other: General: Yes normal to inspection Psych Appearance: grossly normal Assessment & Plan Assessment & Plan (1) Cutaneous abscess of right ankle: Comment: Chronic OM left foot Code(s): L02.415 - Cutaneous abscess of right lower limb Category: Medical Plan: Area probably chronic. He will see Dr Cornelius on 04/16 and if looks like active OM e.g probes to bone at that time IV Daptomycin likely 6 week or possible Ertapenem. Plan Chr Coding Level of Care Code New Pt Level 4 (50942) Diagnoses Cutaneous abscess of right ankle L02.415
[2024-03-19 14:18] VITALS: PULSE 79; TEMP 36.9; O2SAT 99; BMI 28.9
== END 2024-03-19 15:11 | disposition home or self-care (01) ==
LOC: HO.HID 14:16
PROVIDERS: PCP Internal Medicine; Referring Provider Internal Medicine; Visit Provider Internal Medicine
DX: L02.415 Cutaneous abscess of right lower limb (principal)
CPT/HCPCS: 99204

== ENCOUNTER → 2024-03-19 14:16 | Outpatient (BNVA) | payer MEDICAID, SELFPAY | PROVIDERS: PCP Internal Medicine; Visit Provider Internal Medicine | DX: L02.415 Cutaneous abscess of right lower limb (principal) | CPT/HCPCS: 99202 ==

== ENCOUNTER 2024-09-01 04:02 | Emergency (ER) | payer MEDICAID, SELFPAY ==
--- NOTE | ~2024-09-01 | XR_ITS ---
EXAMINATION: XR TOES, LEFT CLINICAL INFORMATION: Left second toe infection COMPARISON: [X-ray on 03/14/2024 TECHNIQUE: 3 views of the left toes were obtained. FINDINGS: BONES: [Toe is amputated at mid shaft of left first metatarsal. Overlapping deformity with expansile appearance is seen in distal shaft of left second metatarsal, with erosions at distal medial and. Erosions are also seen at the tip of the left third and fourth metatarsals. Prominent bony spur is seen in distal lateral end of left fourth metatarsal. There is no focal bone destruction or periosteal reaction seen. JOINTS: Alignment of joints is normal. SOFT TISSUE: Soft tissue swelling is seen in left second toe especially the distal segment. No radiopaque foreign body or abnormal air collection is seen. XR/XR toe LT min 2V IMPRESSION: 1. Interval development of Soft tissue swelling in left second toe especially the distal segment. No radiopaque foreign body or abnormal air collection is seen. 2. Unchanged Overlapping deformity with expansile appearance is seen in distal shaft of left second metatarsal, with erosions at distal medial. Erosions are also seen at the tip of the left third and fourth metatarsals. Findings are suggestive of gout or other inflammatory arthritis. 3. Unchanged status post amputation of the left great toe at mid shaft of first metatarsal. Electronically signed by: Alexandro Mackenzie MD 09/01/2024 07:29 AM [facility]
[2024-09-01 04:16] VITALS: BP 143/85; PULSE 83; RESP 18; TEMP 36.7; O2SAT 99; BMI 26.4
[2024-09-01 04:32] LABS: Basophils Absolute Auto 0.1 X10*3/uL (0.0-0.2); Eosinophils Absolute Auto 0.4 X10*3/uL (0.0-0.4); Eosinophils Percent Auto 6.5 % (0-4); Hematocrit 36.6 % (42.0-52.0); Hemoglobin 12.1 g/dl (14.0-18.0); Imm Gran Abs Auto 0.01 X10*3/uL (0.00-0.03); Imm Gran Pct Auto 0.2 % (0.0-0.4); Lymphocytes Absolute Auto 1.9 X10*3/uL (1.2-4.9); Lymphocytes Percent Auto 31.6 % (20-40); MANUAL DIFF FLAG NO; Mean Corpuscular HGB Conc 33.1 g/dl (31.0-36.0); Mean Corpuscular Hemoglobin 28.7 pg (27.0-33.0); Mean Corpuscular Volume 86.9 fL (80.0-98.0); Mean Platelet Volume 9.5 fL (9.4-12.4); Monocytes Absolute Auto 0.5 X10*3/uL (0.1-1.2); Monocytes Percent Auto 8.5 % (2-11); Neutrophils Absolute Auto 3.1 x10*3/uL (2.0-8.3); Neutrophils Percent Auto 52.2 % (45-73); Platelet Count 236 X10*3/uL (160-400); Red Blood Count 4.21 X10*6/uL (4.60-5.80); Red Cell Distribution Width 13.1 % (11.0-16.0); White Blood Count 5.9 X10*3/uL (4.8-10.8)
[2024-09-01 04:45] LABS: Alanine Aminotransferase 14 U/L (0-40); Alkaline Phosphatase 75 U/L (39-117); Anion Gap 13 (12-20); Aspartate Amino Transferase 17 U/L (5-37); Bilirubin Total 0.3 mg/dL (0.0-1.0); Blood Urea Nitrogen 32 mg/dL (9-16); Calcium 8.8 mg/dL (8.4-10.2); Carbon Dioxide 23 mmol/L (22-29); Chloride 106 mmol/L (96-108); Creatinine Clr Calc Pharmacy 49.1; Estimated Glomerular Filt Rate 37; Glucose Random 157 mg/dL (60-115); Potassium 4.4 mmol/L (3.3-5.1); Sodium 138 mmol/L (135-145); Total Protein 7.4 g/dL (6.5-8.0)
[2024-09-01 07:10] VITALS: BP 128/87; PULSE 84; RESP 18; TEMP 37.1; O2SAT 97
--- NOTE | 2024-09-01 13:14 | ED.GENADULT ---
HPI - General Adult General Chief complaint: Extremity Problem Stated complaint: L Toe infection Time Seen by Provider: 09/01/24 13:14 History of Present Illness ED Provider: Sulema OCONNOR narrative: The patient is a 53-year-old male with a history of type 2 diabetes managed primarily with oral agents. He has a history of having had an amputation of his left great toe about a year ago. This was done at [facility] by a sourcing internship there. The patient has had a smaller chronic wound. Six months ago he was seen here for a infection at the tip of his left 2nd toe. At that time he was treated with cephalexin and doxycycline and discharged from the emergency room. The patient says that the toe has slowly gotten some increased redness and swelling. Today there was a foul odor and he came to the emergency room. No fever, sweats, chills. No injury. Related Data Home Medications ?Medication ?Instructions ?Recorded ?Confirmed amlodipine 5 mg tablet 5 mg PO DAILY 06/29/23 canagliflozin 50 mg-metformin ER 2 tab PO QAM 06/29/23 500 mg tablet,extended release 24 hr (Invokamet XR) glipizide 5 mg tablet 5 mg PO TID 06/29/23 ketoconazole 2 % shampoo topical DAILY 06/29/23 omeprazole 20 mg capsule,delayed 20 mg PO QAM 06/29/23 release simvastatin 20 mg tablet 20 mg PO BEDTIME 06/29/23 valsartan 320 1 tab PO DAILY 06/29/23 mg-hydrochlorothiazide 25 mg tablet Previous Rx's ?Medication ?Instructions ?Recorded sildenafil 100 mg tablet (Viagra) 100 mg PO .prn PRN sexual activity 09/19/23 90 days #30 tabs cephalexin 500 mg capsule 500 mg PO QID #27 caps 03/14/24 doxycycline hyclate 100 mg capsule 100 mg PO BID #13 caps 03/14/24 amoxicillin 875 mg-potassium 1 tab PO BID 14 days #28 tabs 09/01/24 clavulanate 125 mg tablet doxycycline monohydrate 100 mg 100 mg PO BID 14 days #28 caps 09/01/24 capsule Allergies Allergy/AdvReac Type Severity Reaction Status Date / Time piperacillin [From Zosyn] Allergy Unknown Verified 09/01/24 04:21 shellfish derived Allergy Nausea and Verified 09/01/24 04:21 Vomiting tazobactam [From Zosyn] Allergy Unknown Verified 09/01/24 04:21 Review of Systems Review of Systems: Yes all other systems are reviewed and are negative [facility] Past Medical History Medical History HTN (hypertension) Diabetes mellitus, type II 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 dysfunction Decreased strength Low libido Surgical History History of amputation of toe Social History Social History Patient Tobacco Use Status: Never used Tobacco Smoked in Last 30 Days: No Use of substances other than those prescribed or required for medical reasons: No Advance Directives: No Advance Directives Information Provided: Yes Do you have a plan to hurt others: No Plan Current occupational status: unemployed Physical Exam ED Vital Signs: Vital Signs - 24 hr 09/01/24 04:16 09/01/24 07:10 09/01/24 16:32 Temperature 98.1 F 98.7 F 98.8 F Pulse Rate 83 84 84 Respiratory Rate 18 18 18 Blood Pressure 143/85 H 128/87 139/90 H Pulse Oximetry 99 97 98 Oxygen Delivery Method Room Air Room Air Room Air BMI result Body Mass Index 26.4 Const Other: The patient is awake and alert, pleasant and cooperative. He does not appear uncomfortable or toxic. HENMT Other: Face is symmetrical. Mucous membranes moist. Eyes General: appearance normal, both eyes and all related structures Neck Neck: Yes no JVD Resp Effort & Inspection: normal respiratory effort Auscultation: clear to auscultation bilaterally Cardio Rate: regular rate Rhythm: regular rhythm Heart sounds: S1 normal heart sound present and S2 normal heart sound present GI Other: Abdomen is soft and nontender Skin Other: The skin of the left 2nd toe is abnormal. The skin is swollen and erythematous. There is a wound at the tip of the toe associated with a significant amount of callus skin. Neuro Other: The patient is awake and alert with a normal mental status. He seems to have some decreased sensation in the forefoot. Sensation is normal in the midfoot and higher. Extrem Other: The patient has had a left great toe amputation. The 2nd toe is swollen and red. There is a wound at the tip of the toe. There is no erythema on the foot itself, only on the toe. No lymphangitis. There is an excellent dorsalis pedis pulse in the foot. Medications Administered Discontinued Medications Generic Name Dose Route Start Last Admin Trade Name Leopoldo PRN Reason Stop Dose Admin Amoxicillin/Clavulanate Potassium 875 mg 09/01/24 15:28 09/01/24 16:22 Amoxicillin/Potassium Clav 875 Mg Tablet PO 09/01/24 15:29 875 mg ONCE ONE Administration Doxycycline Monohydrate 100 mg 09/01/24 15:29 09/01/24 16:22 Doxycycline Monohydrate 100 Mg Capsule PO 09/01/24 15:30 100 mg ONCE ONE Administration Medical Decision Making Medical Decision Making [facility] Narrative: The patient is a 53-year-old male with type 2 diabetes who has had a previous amputation of the left foot great toe. Today he presents with an infection of the 2nd toe. There is foul-smelling wound at the tip of the toe. There seems to be cellulitis to the toe without lymphangitis or any cellulitis on the dorsum of the foot. The patient does not seem toxic. He has not had a fever. He does not have an elevated white count or left shift. He has a normal ESR and CRP. X-ray of the toe shows some slight lucencies in the distal phalanx. Whether the patient truly has osteomyelitis is hard to say. His normal inflammatory markers would argue against osteomyelitis. The patient has an existing relationship with the sourcing internship Dr. Gene Cornelius and was able to contact his office today. He thinks he will be able to have prompt follow up as an outpatient. The patient will be started on antibiotics, Augmentin and doxycycline. He should follow up with Dr. Cornelius promptly. Patient's creatinine today was 1.9. We only have 1 previous creatinine from December of 2023 when it was 1.44. 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 Gene Sykes. The patient is instructed to contact Dr. Sykes to follow up on this as well. The patient should return if worse. Lab Data 09/01/24 04:27 09/01/24 04:27 Labs: Lab Results 09/01/24 09/01/24 Range/Units 04:27 14:41 WBC 5.9 (4.8-10.8) X10*3/uL RBC 4.21 L (4.60-5.80) X10*6/uL Hgb 12.1 L (14.0-18.0) g/dl Hct 36.6 L (42.0-52.0) % MCV 86.9 (80.0-98.0) fL MCH 28.7 (27.0-33.0) pg MCHC 33.1 (31.0-36.0) g/dl RDW 13.1 (11.0-16.0) % Plt Count 236 (160-400) X10*3/uL MPV 9.5 (9.4-12.4) fL Immature Gran % (Auto) 0.2 (0.0-0.4) % Neut % (Auto) 52.2 (45-73) % Lymph % (Auto) 31.6 (20-40) % [place] % (Auto) 8.5 (2-11) % Eos % (Auto) 6.5 H (0-4) % Baso % (Auto) 1.0 (0-2) % Lymph # (Auto) 1.9 (1.2-4.9) X10*3/uL [place] # (Auto) 0.5 (0.1-1.2) X10*3/uL Eos # (Auto) 0.4 (0.0-0.4) X10*3/uL Baso # (Auto) 0.1 (0.0-0.2) X10*3/uL Abs Immat Gran (auto) 0.01 (0.00-0.03) X10*3/uL Absolute Neuts (auto) 3.1 (2.0-8.3) x10*3/uL Absolute Nucleated RBC 0.000 (0.0-0.012) X10*3/uL Nucleated RBC % (auto) 0.0 (0.0-0.2) /100WBC ESR 10 (0-15) MM/HR Sodium 138 (135-145) mmol/L Potassium 4.4 (3.3-5.1) mmol/L Chloride 106 (96-108) mmol/L Carbon Dioxide 23 (22-29) mmol/L Anion Gap 13 (12-20) BUN 32 H (9-16) mg/dL Creatinine 1.93 H (0.5-1.4) mg/dL Estim Creat Clear Calc 49.1 Estimated GFR 37 Random Glucose 157 H (60-115) mg/dL Lactic Acid 0.8 (0.5-2.0) mmol/L Calcium 8.8 (8.4-10.2) mg/dL Total Bilirubin 0.3 (0.0-1.0) mg/dL AST 17 (5-37) U/L ALT 14 (0-40) U/L Alkaline Phosphatase 75 (39-117) U/L C-Reactive Protein 0.15 (< or = 0.50) mg/dL Total Protein 7.4 (6.5-8.0) g/dL Albumin 4.0 (3.5-5.0) g/dL Discharge Plan Discharge Clinical Impression: Cellulitis of second toe, left, Type 2 diabetes mellitus, Renal insufficiency Patient Disposition: Home, Self-Care Additional Instructions: You have an infection in your left 2nd toe. Please take the antibiotics 2 times a day as prescribed, approximately every 12 hours. Please contact your foot doctor, Dr. Cornelius, for a prompt follow up appointment. I think it would be very important that you get seen this week. Your x-ray shows some possible degree of infection at the tip of the toe. However your blood tests argue against a significant bone infection. As much as you can rest and elevate the foot. Additionally, your blood test shows some worsening kidney function. Please contact Dr. Sykes, your kidney doctor to discuss this further. In the meantime drink lot of fluids and keep yourself well hydrated. Return to the emergency room if significantly worse. Prescriptions: New amoxicillin-pot clavulanate 875-125 mg tablet 1 tab PO BID 14 Days Qty: 28 0RF doxycycline monohydrate 100 mg capsule 100 mg PO BID 14 Days Qty: 28 0RF No Action sildenafil [Viagra] 100 mg tablet 100 mg PO .prn PRN (Reason: sexual activity) 90 Days Qty: 30 0RF Rx Instructions: [id number] [facility] [id number] Member [id number] cephalexin 500 mg capsule 500 mg PO QID Qty: 27 0RF doxycycline hyclate 100 mg capsule 100 mg PO BID Qty: 13 0RF omeprazole 20 mg capsule,delayed release(DR/EC) 20 mg PO QAM Invokamet XR 50-500 mg tablet, IR - ER, biphasic 24hr 2 tab PO QAM simvastatin 20 mg tablet 20 mg PO BEDTIME valsartan-hydrochlorothiazide 320-25 mg tablet 1 tab PO DAILY amlodipine 5 mg tablet 5 mg PO DAILY glipizide 5 mg tablet 5 mg PO TID ketoconazole 2 % shampoo topical DAILY Referrals: Alma Rosa Preciado MD [Primary Care Provider] - (diabetes, renal insufficiency) Gene Sykes MD [Physician] - (worsening creatinine) Obie Cornelius MD [Physician] - (Second toe infection) Interventions: ED Discharge Assessment Last Done: 09/01/24 16:32 Discharge Date/Time: 09/01/24 16:34 Print Language: Pakistani
[2024-09-01 13:44] LABS: C Reactive Protein 0.15 mg/dL (< or = 0.50)
[2024-09-01 14:13] LABS: Erythrocyte Sedimentation Rate 10 MM/HR (0-15)
[2024-09-01 15:05] LABS: Lactic Acid 0.8 mmol/L (0.5-2.0)
[2024-09-01] MEDS: Amoxicillin/Potassium Clav 875 MG TABLET PO (16:22)
[2024-09-01] MEDS: Doxycycline Monohydrate 100 MG CAPSULE PO (16:22)
[2024-09-01 16:32] VITALS: BP 139/90; PULSE 84; RESP 18; TEMP 37.1; O2SAT 98
== END 2024-09-01 16:34 | disposition home or self-care (01) ==
PROVIDERS: Emergency Provider Emergency Medicine; PCP Internal Medicine
DX: L03.032 Cellulitis of left toe (principal); E11.9 Type 2 diabetes mellitus without complications; N28.9 Disorder of kidney and ureter, unspecified; M79.672 Pain in left foot; Z79.899 Other long term (current) drug therapy
CPT/HCPCS: 36415; 73660; 80053; 83605; 85025; 85652; 86140; 87040; 87070; 87077; 87147; 87186; 87205; 99284

== ENCOUNTER 2025-01-23 11:19 | Outpatient (REF) | payer MEDICAID, SELFPAY ==
--- OUTSIDE RECORDS SUMMARY | 2025-01-23 13:16 | XMS_ITS | Encounter Summary ---
Author Organization [employer] Address [address] [facility] [address] [place] [address] Care Team Providers Care Claims Specialist Name Role Phone Alma Rosa Preciado MD Primary Care Provider [phone] Reason for Visit * Reason Onset Date Comments Nurse Triage 01/22/2025 Encounter Details Date Type Department Care Team ([facility] st Contact Info) Description 01/22/2025 Telephone [facility] [address] [place] [address] Alma Rosa Preciado MD [address] [place] [address] Nurse Triage Social History Tobacco Use Types Packs/Day Years Used Date Smoking Tobacco: Never Smokeless Tobacco: Never Housing Stability Answer Date Recorded What is your housing situation today? I have osielalyssa orozco 08/06/[address] you li ve. Do you have problems with any of the following? None of the above 08/06/2023 Food Insecurity Answer Date Recorded Within the past 12 months, y ou worried that your food would run out before you got money to buy more: Never True 08/06/2023 Within the past 12 months,th e food you bought just didn't last and you didn't have enough money to get more: Never True Transportation Answer Date Recorded In the past 12 months, has l ack of transportation kept you from medical appts, meetings, work or from getting things needed for daily living? No 08/06/2023 Utilities Answer Date Recorded In the past 12 months, has t he electric, gas, oil or water company threatened to shut off services in your home? No 08/06/2023 Sex and Gender Information Value Date Recorded Sex Assigned at Male 08/21/2022 10:20 AM EDT Legal Sex Male 10:20 AM EDT Gender Identity Male 08/21/2022 10:20 AM EDT Sexual Orientation Straight 08/21/2022 10 :20 AM EDT documented as of this encounter Miscellaneous Notes * Telephone Encounter - Chel Gonzalez LPN - 01/22/2025 11:08 AM EDT Triage call returned to patient who reports that he has developed a sore on the bottom of the left foot. Patient reports skin had gotten hard and then split open. Now present about one week. Has beencleaning and wrapping with protective dressing. with no noted improvement. Previously seen at [facility] some time ago. Patient with BG 128 per report. No fever and no active bleeding or noted drainage. Disposition reviewed and patient in agreement with plan. ASK/ tomorrow 01/23/25 at 10am. Reviewed with patient home care recommendations and reasons to call back. Pt verbalized understanding and agrees. Protocol Used: Skin Injury (Adult) Protocol-Based Disposition: See in Office or Video Visit Today or Tomorrow Video visit not offered Positive Triage Question: * Has diabetes (diabetes mellitus) and has minor cut or scratch on foot * All higher-acuity triage questions were negative Care Advice Discussed: * Clean the Wound * Reasons To Call Back - You become worse * Telephone Encounter - Luana Sanford - 01/22/2025 10:34 AM EDT Symptom: Wound Infection - Caller Reports Outcome: Schedule an urgent appointment (within 1 hour) or talk to a nurse or provider soon Reason: Getting worse The caller accepted this outcome. documented in this encounter Plan of Treatment Upcoming Encounters Date Type Department Care Team (Late st Contact Info) Description 02/17/2025 9:00 AM EDT Office Visit [facility] [address] [facility] [place] [address] Alma Rosa Preciado MD [address] [place] [address] 07/06/2025 2:00 PM EDT Office Visit [facility] [address] [place] [address] Sanchez Preciado documented as of this encounter Visit Diagnoses Not on filedocumented in this encounter Care Teams Claims Specialist Relationship Specialty Start Date End Date Alma Rosa Preciado MD [address] [place] [address] PCP - General Internal Medicine 10/22/18 documented as of this encounter
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
--- OUTSIDE RECORDS SUMMARY | 2025-01-23 13:16 | XMS_ITS | Encounter Summary ---
Author Organization [employer] Address [address] [place] [address] Care Team Providers Care Executive Casino Host Name Role Phone Alma Rosa Preciado MD Primary Care Provider [phone] Encounter Details Date Type Department Care Team (Late st Contact Info) Description 11/02/2022 Orders Only [facility] [address] [place] [address] Pearl Galdamez LPN Social History Tobacco Use Types Packs/Day Years Used Date Smoking Tobacco: Never Assessed Sex and Gender Information Value Date Recorded Sex Assigned at Male 08/21/2022 10:20 AM EDT Legal Sex Male 10:20 AM EDT Gender Identity Male 08/21/2022 10:20 AM EDT Sexual Orientation Straight 08/21/2022 10 :20 AM EDT documented as of this encounter Plan of Treatment Upcoming Encounters Date Type Department Care Team (Late st Contact Info) Description 02/17/2025 9:00 AM EDT Office Visit [facility] [address] [place] [address] Alma Rosa Preciado MD [address] [place] [address] 07/06/2025 2:00 PM EDT Office Visit [facility] AD[facility] [address] [place] [address] Sanchez Preciado documented as of this encounter Visit Diagnoses Not on filedocumented in this encounter Care Teams Executive Casino Host Relationship Specialty Start Date End Date Alma Rosa Preciado MD [address] [place] [id number] PCP - General Internal Medicine 10/22/18 documented as of this encounter
--- OUTSIDE RECORDS SUMMARY | 2025-01-23 13:16 | XMS_ITS | Encounter Summary ---
Author Organization [employer] Address [address] [place] [id number] Care Team Providers Care Operating System Programmer Name Role Phone Alma Rosa Preciado MD Primary Care Provider [phone] Reason for Visit * Reason Onset Date Comments Nurse Triage 07/09/2023 Encounter Details Date Type Department Care Team ([facility] st Contact Info) Description 07/09/2023 Telephone [facility] & PEDS [address] [place] [address] Alma Rosa Preciado MD [address] [place] [address] Nurse Triage Social History Tobacco Use Types Packs/Day Years Used Date Smoking Tobacco: Never Smokeless Tobacco: Never Sex and Gender Information Value Date Recorded Sex Assigned at Male 08/21/2022 10:20 AM EDT Legal Sex Male 10:20 AM EDT Gender Identity Male 08/21/2022 10:20 AM EDT Sexual Orientation Straight 08/21/2022 10 :20 AM EDT documented as of this encounter Miscellaneous Notes * Telephone Encounter - Barney Trent - 07/09/2023 4:03 PM EDT Symptom: Foot or Ankle Pain - Not From Injury Outcome: Schedule an urgent appointment (within 1 hour) or talk to a nurse or provider soon Reason: Severe pain now The caller accepted this outcome Please contact pt at [phone] documented in this encounter Plan of Treatment Upcoming Encounters Date Type Department Care Team (Late st Contact Info) Description 02/17/2025 9:00 AM EDT Office Visit [facility] PED[facility] [address] [place] [address] Alma Rosa Preciado MD [address] [place] [address] 07/06/2025 2:00 PM EDT Office Visit [facility] ADULT DENTAL [address] [place] [address] Sanchez Preciado documented as of this encounter Visit Diagnoses Not on filedocumented in this encounter Care Teams Operating System Programmer Relationship Specialty Start Date End Date Alma Rosa Preciado MD [address] [place] [address] PCP - General Internal Medicine 10/22/18 documented as of this encounter
--- OUTSIDE RECORDS SUMMARY | 2025-01-23 13:16 | XMS_ITS | Encounter Summary ---
Author Organization [employer] Address [address] [facility] 7 [place] [address] Care Team Providers Care Sheet Tester Name Role Phone Alma Rosa Preciado MD Primary Care Provider [phone] Encounter Details Date Type Department Care Team ([facility] [address] Contact Info) Description 03/20/2024 Orders Only [facility] MED & PEDS [address] [place], [place] [phone] Alma Rosa Preciado MD [address] [place] [address] Social History Tobacco Use Types Packs/Day Years [...] Description 02/17/2025 9:00 AM EDT Office Visit [facility] PED[facility] [address] [place] [address] Alma Rosa Preciado MD [address] [place] [address] 07/06/2025 2:00 PM EDT Office Visit [facility] ADULT DENT[facility] [address] [place] [address] Sanchez Preciado documented as of this encounter Visit Diagnoses Not on filedocumented in this encounter Care Teams Sheet Tester Relationship Specialty Start Date End Date Alma Rosa Preciado MD [address] [place] [address] PCP - General Internal Medicine 10/22/18 documented as of this encounter
--- OUTSIDE RECORDS SUMMARY | 2025-01-23 13:16 | XMS_ITS | Encounter Summary ---
Author Organization [employer] [facility] Address [address] [place] [address] Care Team Providers Care Field Foreman Name Role Phone Alma Rosa Preciado MD Primary Care Provider [phone] Encounter Details Date Type Department Care Team (Late st Contact Info) Description 02/22/2023 Orders Only [facility] MED & PEDS [address] [place] [address] Nina Reyes LPN Social History Tobacco Use Types Packs/Day [...] Description 02/17/2025 9:00 AM EDT Office Visit [facility] MED & PEDS [address] [place] [address] Alma Rosa Preciado MD [address] [place] [address] 07/06/2025 2:00 PM EDT Office Visit [facility] ADULT DENTAL [address] [place] [address] Sanchez Preciado documented as of this encounter Visit Diagnoses Not on filedocumented in this encounter Care Teams Field Foreman Relationship Specialty Start Date End Date Alma Rosa Preciado MD [address] [place] [address] PCP - General Internal Medicine 10/22/18 documented as of this encounter
--- OUTSIDE RECORDS SUMMARY | 2025-01-23 13:16 | XMS_ITS | Encounter Summary ---
Author Organization [employer] Address [address] [place] [address] Care Team Providers Care Director Of Marketing Name Role Phone Alma Rosa Preciado MD Primary Care Provider [phone]- [phone] Reason for Visit * Reason Onset Date Comments Other 06/28/2023 Encounter Details Date Type Department Care Team (Late Contact Info) Description 06/28/2023 Telephone [facility] CHC MED & PEDS [address] [place] [address] Alma Rosa Preciado MD [address] [place] [address] Other Social History Tobacco Use Types Packs/Day Years Used Date Smoking Tobacco: Never Smokeless Tobacco: Never Sex and Gender Information Value Date Recorded Sex Assigned at Male 08/21/2022 10:20 AM EDT Legal Sex Male 10:20 AM EDT Gender Identity Male 08/21/2022 10:20 AM EDT Sexual Orientation Straight 08/21/2022 10 :20 AM EDT documented as of this encounter Miscellaneous Notes * Telephone Encounter - Summer Wilson - 06/28/2023 8:57 AM EDT Tc from Vincenzo at [facility] requesting a new script for a glucose meter, test strips and lancets. documented in this encounter Plan of Treatment Upcoming Encounters Date Type Department Care Team (Late Contact Info) Description 02/17/2025 9:00 AM EDT Office Visit [facility] MED & PEDS [address] [place] [address] Alma Rosa Preciado MD [address] [place] [address] 07/06/2025 2:00 PM EDT Office Visit [facility] ADULT DENTAL [address] [place] [address] Sanchez Preciado documented as of this encounter Visit Diagnoses Not on filedocumented in this encounter Care Teams Director Of Marketing Relationship Specialty Start Date End Date Alma Rosa Preciado MD [address] [place] [address] PCP - General Internal Medicine 10/22/18 documented as of this encounter
--- OUTSIDE RECORDS SUMMARY | 2025-01-23 13:16 | XMS_ITS | Encounter Summary ---
Author Organization [employer] Address [address] [place] [address] [place] [address] Care Team Providers Care Group Art Supervisor Name Role Phone Alma Rosa Preciado MD Primary Care Provider [phone] Reason for Visit * Reason Onset Date Comments Med Refill 01/22/2025 Encounter Details Date Type Department Care Team ([facility] st Contact Info) Description 01/22/2025 Refill [facility] CHC MED & PEDS [address] [place] [address] Alma Rosa Preciado MD [address] [place] [address] Type 2 diabetes mellitus with hyperglycemia, with long-term current use of insulin ([facility]) Social History Tobacco Use Types Packs/Day Years [...] Description 02/17/2025 9:00 AM EDT Office Visit [facility] MED & PEDS [address] [place] [address] Alma Rosa Preciado MD [address] [place] [address] 07/06/2025 2:00 PM EDT Office Visit [facility] ADULT DENTAL [address] [place] [address] Sanchez Preciado documented as of this encounter Visit Diagnoses Diagnosis Type 2 diabetes mellitus with hyperglycemia, with long-term current use of insulin ([facility]) documented in this encounter Care Teams Group Art Supervisor Relationship Specialty Start Date End Date Alma Rosa Preciado MD [address] [place] [address] PCP - General Internal Medicine 10/22/18 documented as of this encounter
--- OUTSIDE RECORDS SUMMARY | 2025-01-23 13:16 | XMS_ITS | Encounter Summary ---
Author Organization [employer] Address [address] [place] [address] Care Team Providers Care Stock Checker Name Role Phone Alma Rosa Preciado MD Primary Care Provider [phone]- [phone] Encounter Details Date Type Department Care Team (Late st Contact Info) Description 06/27/2023 Abstract [place] [employer] [facility] [address] [place], [place] [phone] Alma Rosa Preciado MD [address] [place] [address] Social History Tobacco Use Types Packs/Day Years [...] Description 02/17/2025 9:00 AM EDT Office Visit [facility] MED & PEDS [address] [place] [address] Alma Rosa Preciado MD [address] [place] [address] 07/06/2025 2:00 PM EDT Office Visit [facility] ADULT DENTAL [address] [place] [address] Sanchez Preciado documented as of this encounter Visit Diagnoses Not on filedocumented in this encounter Care Teams Stock Checker Relationship Specialty Start Date End Date Alma Rosa Preciado MD [address] [place] [address] PCP - General Internal Medicine 10/22/18 documented as of this encounter
--- OUTSIDE RECORDS SUMMARY | 2025-01-23 13:16 | XMS_ITS | Encounter Summary ---
Author Organization [employer] Address [address] [place] [address] Care Team Providers Care Anthropology And Archeology Instructor Name Role Phone Alma Rosa Preciado MD Primary Care Provider [phone]- [phone] Reason for Visit * Reason Comments Med Refill Encounter Details Date Type Department Care Team (Late Contact Info) Description 10/30/2022 Refill [facility] MEDICINE [address] [place], [place] [phone] Alma Rosa Preciado MD [address] [place] [address] Type 2 diabetes mellitus with diabetic peripheral angiopathy without gangrene, with long-term current use of insulin ([facility]) (Primary Dx) Social History Tobacco Use Types Packs/Day Years [...] Description 02/17/2025 9:00 AM EDT Office Visit [facility] CHC MED & PEDS [address] [place], [place] [phone] Alma Rosa Preciado MD [address] [place], [place] [phone] 07/06/2025 2:00 PM EDT Office Visit [facility] ADULT DENTAL [address] [place] [address] Sanchez Preciado documented as of this encounter Visit Diagnoses Diagnosis Type 2 diabetes mellitus with diabetic peripheral angiopathy without gangrene, with long-term current use of insulin ([facility])- Primary documented in this encounter Care Teams Anthropology And Archeology Instructor Relationship Specialty Start Date End Date Alma Rosa Preciado MD [address] [place] [address] PCP - General Internal Medicine 10/22/18 documented as of this encounter
--- OUTSIDE RECORDS SUMMARY | 2025-01-23 13:16 | XMS_ITS | Encounter Summary ---
Author Organization [employer] Address [address] [facility] 7[address] [place] [address] Care Team Providers Care Dump Grounds Checker Name Role Phone Alma Rosa Preciado MD Primary Care Provider [phone] Encounter Details Date Type Department Care Team ([facility] st Contact Info) Description 01/16/2024 Telephone [facility] MEDICINE [address] [place] [address] Alma Rosa Preciado MD [address] [place], [place] [phone] Social History Tobacco Use Types Packs/Day Years [...] encounter Miscellaneous Notes * Telephone Encounter - Deja Kang RN - 01/18/2024 3:13 PM EDT Paperwork refaxed with correct month on form. * Telephone Encounter - Dilip Chu - 01/16/2024 2:30 PM EDT Tc from Demi with [place] department of transitional assistance calling in regards to a medical providers statement that was faxed over but demi stated it was dated 02/14 instead of 01/14. Demi is requesting a refax. If any questions please contact Demi at [phone]. documented in this encounter Plan of Treatment Upcoming Encounters Date Type Department Care Team (Late st Contact Info) Description 02/17/2025 9:00 AM EDT Office Visit [facility] MED & PEDS [address] [place] [address] Alma Rosa Preciado MD [address] [place] [address] 07/06/2025 2:00 PM EDT Office Visit [facility] ADULT DENTAL [address] [place] [address] Sanchez Perciado documented as of this encounter Visit Diagnoses Not on filedocumented in this encounter Care Teams Dump Grounds Checker Relationship Specialty Start Date End Date Alma Rosa Preciado MD [address] [place] [address] PCP - General Internal Medicine 10/22/18 documented as of this encounter
--- OUTSIDE RECORDS SUMMARY | 2025-01-23 13:16 | XMS_ITS | Encounter Summary ---
Author Organization [employer] Address [address] [facility] 7 [place] [address] Care Team Providers Care Design Engineer Name Role Phone Alma Rosa Preciado MD Primary Care Provider [phone] Reason for Visit * Reason Comments Sore on foot Diabetes Encounter Details Date Type Department Care Team ([facility] st Contact Info) Description 01/23/2025 10:00 AM EDT Office Visit [facility] CHC MED & PEDS [address] [place] [address] Dai Casey MD [address] [place] [address] Ulcer of left foot, unspecified ulcer stage (CMS/HCC) (Primary Dx); Type 2 diabetes mellitus with hyperglycemia, with long-term current use of insulin (CMS/HCC) Social History Tobacco Use Types Packs/Day Years [...] AM EDT documented as of this encounter Last Filed Vital Signs Vital Sign Reading Time Taken Comments Blood Pressure 142/84 01/23/2025 10:10 AM EDT Pulse 94 01/23/2025 10:10 AM EDT Temperature 36.2 ??C (97.1 ??F) 01/23/2025 10:10 AM E DT Respiratory Rate 18 01/23/2025 10:10 AM EDT Oxygen Saturation - - Inhaled Oxygen Concentration - - Weight 95.7 kg (211 lb) 01/23/2025 10:10 AM EDT Height 182.9 cm (6') 01/23/2025 10:10 AM EDT Body Mass Index 28.62 01/23/2025 10:10 AM EDT documented in this encounter Progress Notes * Dai Casey MD - 01/23/2025 10:00 AM EDT Subjective Patient ID: Caleb Arias is a 54 y.o. male who presents for Sore on foot and Diabetes. Wound Check There has been colored discharge from the wound. There is new redness present. The swelling has worsened. There is new pain present. Review of Systems Constitutional: Negative. Respiratory: Negative. Cardiovascular: Negative. Gastrointestinal: Negative. Genitourinary: Negative. Skin: Positive for wound. Objective Physical Exam Constitutional: Appearance: Normal appearance. Cardiovascular: Rate and Rhythm: Normal rate and regular rhythm. Pulmonary: Effort: Pulmonary effort is normal. Breath sounds: Normal breath sounds. Musculoskeletal: Feet: Neurological: Mental Status: He is alert. Assessment/Plan Diagnoses and all orders for this visit: Ulcer of left foot, unspecified ulcer stage (CMS/HCC) Comments: Started on Doxycyline and Ciproflox Dressing done in the office Cultures sent out Pt will cntact wound clinic now F/u with PCP Orders: - Wound culture; Future Type 2 diabetes mellitus with hyperglycemia, with long-term current use of insulin ([facility]) Comments: Stable no changes Orders: - POCT Glucose - POCT HGB A1C Other orders - doxycycline (Vibra-Tabs) 100 MG tablet; Take 1 tablet (100 mg) by mouth 2 times daily for 10 days. Take with a full glass of water and do not lie down for at least 30 minutes after. - bacitracin (RA Bacitracin) 500 UNIT/GM ointment; Apply topically 2 times daily. - ciprofloxacin (Cipro) 500 MG tablet; Take 1 tablet (500 mg) by mouth 2 times daily for 10 days. documented in this encounter Plan of Treatment Upcoming Encounters Date Type Department Care Team (Late st Contact Info) Description 02/17/2025 9:00 AM EDT Office Visit [facility] MED & PEDS [address] [place] [address] Alma Rosa Preciado MD [address] [place] [address] 07/06/2025 2:00 PM EDT Office Visit [facility] ADULT DENTAL [address] [place] [address] Sanchez Preciado Scheduled Orders Name Type Priority Associated Diagnoses Orde r Schedule Wound culture Microbiology Routine Ulcer of left foot, unspecified ulcer stage ([facility]) Expected: 01/23/2025 (Approximate), Expires: 01/23/2026 documented as of this encounter Procedures Procedure Name Priority Date/Time Associated Diagnosis Comments POCT GLYCATED HEMOGLOBIN, TOTAL Routine 01/23/2025 10:12 AM EDT Type 2 diabetes mellitus with hyperglycemia, with long-term current use of insulin ([facility]) POCT GLUCOSE Routine 01/23/2025 10:11 AM EDT Type 2 diabetes mellitus with hyperglycemia, with long-term current use of insulin ([facility]) documented in this encounter Results * (ABNORMAL) POCT HGB A1C (01/23/2025 10:12 AM EDT) Hemoglobin A1C 7.4(A) 4.0 - 6.0 % QC Media Lot # [id number] Lot# Expiration Date , Blood 01/23/2025 10:1 2 AM EDT Dai Casey MD POINT OF CARE TEST ENTER/EDIT OR DERABLES Final Result * POCT Glucose (01/23/2025 10:11 AM EDT) Glucose Blood, POC 124 60 - 200 mg/dL QC Media Lot # [id number] Lot# Expiration Date Blood Capillary blood specimen / Unknown 01/23/2025 10:11 AM EDT Dai Casey MD POINT OF CARE TEST ENTER/EDIT OR DERABLES Final Result documented in this encounter Visit Diagnoses Diagnosis Ulcer of left foot, unspecified ulcer stage (CMS/HCC)- Primary Type 2 diabetes mellitus with hyperglycemia, with long-term current use of insulin (CMS/HCC) documented in this encounter Care Teams Design Engineer Relationship Specialty Start Date End Date Alma Rosa Preciado MD [address] [place] [address] PCP - General Internal Medicine 10/22/18 documented as of this encounter
--- OUTSIDE RECORDS SUMMARY | 2025-01-23 13:16 | XMS_ITS | Encounter Summary ---
Author Organization [employer] Address [address] [facility] [address] [address] [place] [address] Care Team Providers Care Behavioral Intervention Specialist Name Role Phone Alma Rosa Preciado MD Primary Care Provider [phone] Encounter Details Date Type Department Care Team (Latest Contact Info) Description 01/23/2025 Travel Social History Tobacco Use Types Packs/Day Years [...] Description 02/17/2025 9:00 AM EDT Office Visit [facility] MED & PEDS [address] [place] [address] Alma Rosa Preciado MD [address] [place] [address] 07/06/2025 2:00 PM EDT Office Visit [facility] ADULT DENTAL [address] [place] [address] Sanchez Preciado documented as of this encounter Visit Diagnoses Not on filedocumented in this encounter Care Teams Behavioral Intervention Specialist Relationship Specialty Start Date End Date Alma Rosa Preciado MD [address] [place] [address] PCP - General Internal Medicine 10/22/18 documented as of this encounter
--- OUTSIDE RECORDS SUMMARY | 2025-01-23 13:16 | XMS_ITS | Encounter Summary ---
Author Organization [employer] Address [address] [place] [address] Care Team Providers Care Director Corporate Compliance Name Role Phone Alma Rosa Preciado MD Primary Care Provider [phone]- [phone] Encounter Details Date Type Department Care Team (Late Contact Info) Description 03/06/2023 Orders Only [facility] CHC MED & PEDS [address] [place] [address] Alma Rosa Preciado MD [address] [place], [place] [phone] Blister (Primary Dx) Social History Tobacco Use Types Packs/Day Years Used Date Smoking Tobacco: Never Assessed Sex and Gender Information Value Date Recorded Sex Assigned at Male 08/21/2022 10:20 AM EDT Legal Sex Male 10:20 AM EDT Gender Identity Male 08/21/2022 10:20 AM EDT Sexual Orientation Straight 08/21/2022 10 :20 AM EDT COVID-19 Exposure Response Date Recorded In the last 10 days, have yo u been in contact with someone who was confirmed or suspected to have Coronavirus/COVID-19? No / Unsure 02/27/2023 3:52 PM EDT documented as of this encounter Plan of Treatment Upcoming Encounters Date Type Department Care Team (Late st Contact Info) Description 02/17/2025 9:00 AM EDT Office Visit [facility] MED & PEDS [address] [place], [place] [phone] Alma Rosa Preciado MD [address] [place], [place] [phone] 07/06/2025 2:00 PM EDT Office Visit [facility] ADULT DENTAL [address] [place] [address] Sanchez Preciado documented as of this encounter Visit Diagnoses Diagnosis Blister- Primary Other, multiple, and unspecified sites, blister, without mention of infection documented in this encounter Care Teams Director Corporate Compliance Relationship Specialty Start Date End Date Alma Rosa Preciado MD [address] [place] [address] PCP - General Internal Medicine 10/22/18 documented as of this encounter
--- OUTSIDE RECORDS SUMMARY | 2025-01-23 13:16 | XMS_ITS | Encounter Summary ---
Author Organization [employer] Address [address] [place] [address] Care Team Providers Care Pattern Duplicator Name Role Phone Alma Rosa Preciado MD Primary Care Provider [phone]- [phone] Encounter Details Date Type Department Care Team (Latest Contact Info) Description 04/19/2022 Abstract [facility] CONVERSIONS Dental, Provider, DDS Social History Tobacco Use Types Packs/Day Years [...] Upcoming Encounters Date Type Department Care Team ( st Contact Info) Description 02/17/2025 9:00 AM EDT Office Visit [facility] MED & PEDS [address] [place] [address] Alma Rosa Preciado MD [address] [place] [address] 07/06/2025 2:00 PM EDT Office Visit [facility] ADULT DENTAL [address] [place] [address] Sanchez Preciado documented as of this encounter Visit Diagnoses Not on filedocumented in this encounter Care Teams Pattern Duplicator Relationship Specialty Start Date End Date Alma Rosa Preciado MD [address] [place], [place] [phone] PCP - General Internal Medicine 10/22/18 documented as of this encounter
--- OUTSIDE RECORDS SUMMARY | 2025-01-23 13:16 | XMS_ITS | Encounter Summary ---
Author Organization [employer] Address [address] [place] [address] Care Team Providers Care Cargo Service Agent Name Role Phone Alma Rosa Preciado MD Primary Care Provider [phone]- [phone] Encounter Details Date Type Department Care Team (Late st Contact Info) Description 06/29/2023 Orders Only [facility] MED & PEDS [address] [place] [address] Alma Rosa Preciado MD [address] [place] [address] Type 2 diabetes mellitus with hyperglycemia, with long-term current use of insulin ([facility]) (Primary Dx) Social History Tobacco Use Types [...] Description 02/17/2025 9:00 AM EDT Office Visit [facility] MED & PEDS [address] [place] [address] Alma Rosa Preciado MD [address] [place] [address] 07/06/2025 2:00 PM EDT Office Visit [facility] ADULT DENTAL [address] [place] [address] Sanchez Preciado documented as of this encounter Visit Diagnoses Diagnosis Type 2 diabetes mellitus with hyperglycemia, with long-term current use of insulin ([facility])- Primary documented in this encounter Care Teams Cargo Service Agent Relationship Specialty Start Date End Date Alma Rosa Preciado MD [address] [place] [address] PCP - General Internal Medicine 10/22/18 documented as of this encounter
--- OUTSIDE RECORDS SUMMARY | 2025-01-23 13:16 | XMS_ITS | Encounter Summary ---
Author Organization [employer] Address [address] [place] [address] Care Team Providers Care Plastic Frame Inserter Name Role Phone Alma Rosa Preciado MD Primary Care Provider [phone]- [phone] Reason for Referral * Imaging (Routine) - Closed Specialty Diagnoses / Procedures Referred By Contac t Referred To Contact Radiology Diagnoses Wound of left foot Procedures MR Foot w and w/o Contrast Left Alma Rosa Preciado MD [address] [place] [address] Phone: tel: fax: [address] Phone: tel: fax: Referral ID Status Reason Start Date Expiration Date Visits Re quested Visits Authorized [id number] Closed 02/08/2024 02/07/2025 1 1 Encounter Details Date Type Department Care Team (Late st Contact Info) Description 02/08/2024 Orders Only [facility] [address] [place], [place] [phone] Alma Rosa Preciado MD [address] [place] [address] Wound of left foot (Primary Dx) Social History Tobacco Use Types Packs/Day Years Used Date Smoking Tobacco: Never Smokeless Tobacco: Never Housing Stability Answer Date Recorded What is your housing situation today? I have osiel sing 08/06/[address] you li [...] Description 02/17/2025 9:00 AM EDT Office Visit [facility] [address] [place] [address] Alma Rosa Preciado MD [address] [place] [address] 07/06/2025 2:00 PM EDT Office Visit [facility] [address] [place] [address] Sanchez Preciado documented as of this encounter Procedures Procedure Name Priority Date/Time Associated Diagnosis Comments MR FOOT W AND WO CONTRAST LEFT Routine 02/26/2024 4:20 PM EDT Wound of left foot documented in this encounter Results * MR Foot w and w/o Contrast Left (02/26/2024 4:20 PM EDT) Anatomical Region Laterality Modality Lower Extremities, Foot Left Magnetic Resonance 02/26/2024 4:20 PM EDT Narrative 02/28/2024 12:14 PM EDT ? [facility] ?[address] ?[place] [address] ? Magnetic Resonance Report ? Signed ? Patient: Hugo,Caleb J ?MR#: [id number] ?? 8 ? : 1970 ?Acct:[id number] ? Age/Sex: 53 / M ?ADM Date: 02/26/24 ? Loc: HO.MRI ? Attending Dr: Alma Rosa Preciado MD ? Ordering Physician: Alma Rosa Preciado MD ?? Date of Service: 02/26/24 ?? Procedure(s): MR foot LT wo/w con ?? Accession Number(s): [id number] ? cc: Alma Rosa Preciado MD ? EXAMINATION: ?? MR FOOT WITHOUT AND WITH CONTRAST, LEFT ? CLINICAL INFORMATION: ?? Wound at the first metatarsal head. Evaluate for osteomyelitis. ?? Swelling. Prior surgery. ? COMPARISON: ?? Left foot radiographs dated 03/09/2023 and 01/11/2024. ? TECHNIQUE: ?? MRI of the left foot was performed before and after the intravenous ?? administration of 9 mL Gadavist on a high-field scanner. ? FINDINGS: ?? Postsurgical change consistent with first metatarsal and phalangeal ?? resection is redemonstrated. Soft tissue ulceration along the ?? medial/plantar aspect of the surgical area with mild skin thickening ?? and mild postcontrast enhancement which could represent postsurgical ?? result versus chronic cellulitis. No organized fluid collection or ?? drainable abscess formation. ? There is prominent marrow edema throughout the second through fifth ?? metatarsals as well as within the middle and lateral cuneiforms and ?? cuboid. Minimal edema within the medial cuneiform. Prominent associated ?? postcontrast enhancement. Bony remodeling with chronic periosteal ?? reaction at the second metatarsal head as well as, to a lesser degree, ?? at the third and fourth metatarsal heads. Findings could represent ?? sequela of chronic osteomyelitis. Chronic stress injuries could be ?? considered, however, are thought less likely. ? The visualized flexor and extensor tendons are intact. Edema throughout ?? the intrinsic musculature of the foot. Intact Lisfranc ligament. ? Synovial recess versus ganglion cyst along the lateral aspect of the ?? fifth tarsometatarsal joint measuring up to 2.7 cm. Diffuse, ?? full-thickness articular cartilage loss at the tarsometatarsal joints ?? with underlying subchondral cystic change, most severe at the fifth ?? tarsometatarsal joint. ? MR/MR foot LT wo/w con ?? IMPRESSION: ?? 1. Postsurgical change consistent with first metatarsal and phalangeal ?? resection. Soft tissue ulceration along the medial/plantar aspect of ?? the surgical area with mild skin thickening and postcontrast ?? enhancement which could represent postsurgical result versus chronic ?? cellulitis. No organized fluid collection or drainable abscess ?? formation. No evidence of osteomyelitis within the persistent first ?? metatarsal. ? 2. Prominent marrow edema throughout the second through fifth ?? metatarsals as well as within the middle and lateral cuneiforms and ?? cuboid. Prominent bony remodeling and chronic periosteal reaction at ?? the second metatarsal head as well as less prominently at the third and ?? fourth metatarsal heads. Minimal edema within the medial cuneiform. ?? Findings could represent sequela of chronic osteomyelitis. Chronic ?? stress injuries could be considered, however, are thought less likely. ? 3. Prominent osteoarthritis at the tarsometatarsal joints, most severe ?? at the fifth tarsometatarsal joint. Synovial recess versus ganglion ?? cyst along the lateral aspect of the fifth tarsometatarsal joint ?? measuring up to 2.7 cm. ? Dictated By: ?Angelo Ortiz MD ? Signed By: ?<Electronically signed by Angelo Ortiz MD in OV> ?02/28/24 1211 ? DD/ 1620 ? TD/TT: ? Plastic Tool Maker: SR ? Procedure Note Trisha Priest - 02/28/[address] [address] Magnetic Resonance Report Signed Patient: Caleb Arias R#: [id number] 8 : 1970Acct:[id number] Age/Sex: 53 / MADM Date: 02/26/24 Loc: HO.MRI Attending Dr: Alma Rosa Preciado MD Ordering Physician: Alma Rosa Preciado MD Date of Service: 02/26/24 Procedure(s): MR foot LT wo/w con Accession Number(s): [id number] cc: Alma Rosa Preciado MD EXAMINATION: MR FOOT WITHOUT AND WITH CONTRAST, LEFT CLINICAL INFORMATION: Wound at the first metatarsal head. Evaluate for osteomyelitis. Swelling. Prior surgery. COMPARISON: Left foot radiographs dated 03/09/2023 and 01/11/2024. TECHNIQUE: MRI of the left foot was performed before and after the intravenous administration of 9 mL Gadavist on a high-field scanner. FINDINGS: Postsurgical change consistent with first metatarsal and phalangeal resection is redemonstrated. Soft tissue ulceration along the medial/plantar aspect of the surgical area with mild skin thickening and mild postcontrast enhancement which could represent postsurgical result versus chronic cellulitis. No organized fluid collection or drainable abscess formation. There is prominent marrow edema throughout the second through fifth metatarsals as well as within the middle and lateral cuneiforms and cuboid. Minimal edema within the medial cuneiform. Prominent associated postcontrast enhancement. Bony remodeling with chronic periosteal reaction at the second metatarsal head as well as, to a lesser degree, at the third and fourth metatarsal heads. Findings could represent sequela of chronic osteomyelitis. Chronic stress injuries could be considered, however, are thought less likely. The visualized flexor and extensor tendons are intact. Edema throughout the intrinsic musculature of the foot. Intact Lisfranc ligament. Synovial recess versus ganglion cyst along the lateral aspect of the fifth tarsometatarsal joint measuring up to 2.7 cm. Diffuse, full-thickness articular cartilage loss at the tarsometatarsal joints with underlying subchondral cystic change, most severe at the fifth tarsometatarsal joint. MR/MR foot LT wo/w con IMPRESSION: 1. Postsurgical change consistent with first metatarsal and phalangeal resection. Soft tissue ulceration along the medial/plantar aspect of the surgical area with mild skin thickening and postcontrast enhancement which could represent postsurgical result versus chronic cellulitis. No organized fluid collection or drainable abscess formation. No evidence of osteomyelitis within the persistent first metatarsal. 2. Prominent marrow edema throughout the second through fifth metatarsals as well as within the middle and lateral cuneiforms and cuboid. Prominent bony remodeling and chronic periosteal reaction at the second metatarsal head as well as less prominently at the third and fourth metatarsal heads. Minimal edema within the medial cuneiform. Findings could represent sequela of chronic osteomyelitis. Chronic stress injuries could be considered, however, are thought less likely. 3. Prominent osteoarthritis at the tarsometatarsal joints, most severe at the fifth tarsometatarsal joint. Synovial recess versus ganglion cyst along the lateral aspect of the fifth tarsometatarsal joint measuring up to 2.7 cm. Dictated By: Angelo Ortiz MD Signed By: <Electronically signed by Angelo Ortiz MD in OV> 02/28/24 1211 DD/ 1620 TD/TT: Plastic Tool Maker: SR Alma Rosa Preciado MD IMG MRI PROCEDURES Final Re sult documented in this encounter Visit Diagnoses Diagnosis Wound of left foot- Primary documented in this encounter Care Teams Plastic Frame Inserter Relationship Specialty Start Date End Date Alma Rosa Preciado MD [address] [place] [address] PCP - General Internal Medicine 10/22/18 documented as of this encounter
--- OUTSIDE RECORDS SUMMARY | 2025-01-23 13:16 | XMS_ITS | Encounter Summary ---
Author Organization [employer] Address [address] [place] [address] Care Team Providers Care Employee Relations Manager Name Role Phone Alma Rosa Preciado MD Primary Care Provider [phone]- [phone] Reason for Referral * Consultation (Routine) - Closed Specialty Diagnoses / Procedures Referred By Contac t Referred To Contact Podiatry Diagnoses Acute osteomyelitis of phalanx of left foot (CMS/HCC) Type 2 diabetes mellitus with hyperglycemia, with long-term current use of insulin (CMS/HCC) Alma Rosa Preciado MD [address] [place] [address] Phone: tel: fax: Clayton Cornelius DPM Phone: tel: fax: Referral ID Status Reason Start Date Expiration Date V isits Requested Visits Authorized [id number] Closed Specialty Services Required 12/17/2023 12/16/2024 1 1 Encounter Details Date Type Department Care Team (Late st Contact Info) Description 12/17/2023 Orders Only [facility] [address] [place], [place] [phone] Alma Rosa Preciado MD [address] [place], [place] [phone] Acute osteomyelitis of phalanx of left foot (CMS/HCC) (Primary Dx); Type 2 diabetes mellitus with hyperglycemia, with long-term current use of insulin ([facility]/HCC) Social History Tobacco Use Types Packs/Day Years [...] 9:00 AM EDT Office Visit [facility] [address] [place] [address] Alma Rosa Preciado MD [address] [place] [address] 07/06/2025 2:00 PM EDT Office Visit [facility] ADULT DENTAL [address] [place] [address] Sanchez Preciado Scheduled Referrals Name Type Priority Associated Diagnoses Orde r Schedule Referral to Podiatry Outpatient Referral Routine Acute osteomyelitis of phalanx of left foot (CMS/HCC) Type 2 diabetes mellitus with hyperglycemia, with long-term current use of insulin (CMS/[facility]) Expected: 12/17/2023 (Approximate), Expires: 12/17/2024 documented as of this encounter Procedures Procedure Name Priority Date/Time Associated Diagnosis Comments XR FOOT 3+ VIEWS LEFT Routine 01/11/2024 10:47 AM EDT documented in this encounter Results * XR Foot 3+ Views Left (01/11/2024 10:47 AM EDT) Anatomical Region Laterality Modality Lower Extremities, Foot Left Radiogra phic Imaging 01/11/2024 10:4 7 AM EDT Narrative 01/22/2024 11:53 AM EDT ?[facility] ?[address] ?[place] [address] ?XRay Report ? Signed ? Patient: Caleb Arias J ?MR#: [id number] ?? 8 ? : 1970 ?Acct:[id number] ? Age/Sex: 53 / M ?ADM Date: 01/11/24 ? Loc: HO[facility] ? Attending Dr: Daphnie Sanchez MD ? Ordering Physician: Daphnie Sanchez MD ?? Date of Service: 01/11/24 ?? Procedure(s): XR foot LT min 3V ?? Accession Number(s): [id number] ? cc: Alma Rosa Preciado MD; Daphnie Sanchez MD ? EXAMINATION: ?? XR FOOT, LEFT ? CLINICAL INFORMATION: ?? Nonhealing wound left foot, attention plantar first metatarsal, rule ?? out osteomyelitis. ? COMPARISON: ?? 03/09/2023 ? TECHNIQUE: ?? AP, lateral, and oblique views of the left foot. ? FINDINGS: ?? Interval resection of the great toe and distal aspect of the first ?? metatarsal. Extensive vascular calcifications. Small dorsal calcaneal ?? spur. ? The distal plantar aspect of the partially resected first metatarsal ?? demonstrates cortical irregularity, possibly related to postsurgical ?? change, but could also consider osteomyelitis given the clinical ?? history presented. ?? There is also deformity at the distal aspect of the second metatarsal ?? with attenuated appearance of the second metatarsal head and abundant ?? adjacent hypertrophic bone. More moderate interval destructive changes ?? are seen at the third and fourth metatarsal heads. ? XR/XR foot LT min 3V ?? IMPRESSION: ?? 1. Interval resection of the great toe and distal aspect of the first ?? metatarsal. The distal plantar aspect of the partially resected first ?? metatarsal demonstrates cortical irregularity, possibly related to ?? postsurgical change, but could also consider osteomyelitis given the ?? clinical history presented. ? 2. There is also deformity at the distal aspect of the second ?? metatarsal with attenuated appearance of the second metatarsal head and ?? abundant adjacent hypertrophic bone. More moderate interval destructive ?? changes are seen at the third and fourth metatarsal heads. Differential ?? considerations include postsurgical/trauma change, degenerative ?? process, and/or osteomyelitis or other process. ? 3. Recommend correlation with clinical exam and additional and possibly ?? additional imaging with MRI to determine further management. ? Dictated By: ?Marine Hicks MD ? Signed By: ?<Electronically signed by Marine Hicks MD in OV> ? 01/22/24 1148 ? DD/ 1047 ? TD/TT: ? Pension Fund Manager: ? Procedure Note Cem, Image - 01/22/2024 [facility] [address] [place] [address] XRay Report Signed Patient: Caleb Arias JMR#: [id number] 8 : 1970Acct:[id number] Age/Sex: 53 / MADM Date: 01/11/24 Loc: HO.[facility] Attending Dr: Daphnie Sanchez MD Ordering Physician: Daphnie Sanchez MD Date of Service: 01/11/24 Procedure(s): XR foot LT min 3V Accession Number(s): [id number] cc: Alma Rosa Preciado MD; Daphnie Sanchez MD EXAMINATION: XR FOOT, LEFT CLINICAL INFORMATION: Nonhealing wound left foot, attention plantar first metatarsal, rule out osteomyelitis. COMPARISON: 03/09/2023 TECHNIQUE: AP, lateral, and oblique views of the left foot. FINDINGS: Interval resection of the great toe and distal aspect of the first metatarsal. Extensive vascular calcifications. Small dorsal calcaneal spur. The distal plantar aspect of the partially resected first metatarsal demonstrates cortical irregularity, possibly related to postsurgical change, but could also consider osteomyelitis given the clinical history presented. There is also deformity at the distal aspect of the second metatarsal with attenuated appearance of the second metatarsal head and abundant adjacent hypertrophic bone. More moderate interval destructive changes are seen at the third and fourth metatarsal heads. XR/XR foot LT min 3V IMPRESSION: 1. Interval resection of the great toe and distal aspect of the first metatarsal. The distal plantar aspect of the partially resected first metatarsal demonstrates cortical irregularity, possibly related to postsurgical change, but could also consider osteomyelitis given the clinical history presented. 2. There is also deformity at the distal aspect of the second metatarsal with attenuated appearance of the second metatarsal head and abundant adjacent hypertrophic bone. More moderate interval destructive changes are seen at the third and fourth metatarsal heads. Differential considerations include postsurgical/trauma change, degenerative process, and/or osteomyelitis or other process. 3. Recommend correlation with clinical exam and additional and possibly additional imaging with MRI to determine further management. Dictated By: Marine Hicks MD Signed By: <Electronically signed by Marine Hicks MD in OV> 01/22/24 1148 DD/ 1047 TD/TT: Pension Fund Manager: [facility] External Provider IMG XR PROCEDURES Final Result documented in this encounter Visit Diagnoses Diagnosis Acute osteomyelitis of phalanx of left foot (CMS/HCC)- Primary Type 2 diabetes mellitus with hyperglycemia, with long-term current use of insulin (CMS/HCC) documented in this encounter Care Teams Employee Relations Manager Relationship Specialty Start Date End Date Alma Rosa Preciado MD [address] [place] [address] PCP - General Internal Medicine 10/22/18 documented as of this encounter
--- OUTSIDE RECORDS SUMMARY | 2025-01-23 13:16 | XMS_ITS | Encounter Summary ---
Author Organization [employer] Address [address] [place] [address] Care Team Providers Care Furnace Liner Name Role Phone Alma Rosa Preciado MD Primary Care Provider [phone] Reason for Visit * Reason Comments Med Refill Encounter Details Date Type Department Care Team (Late st Contact Info) Description 11/20/2022 Refill [facility] [address], [place] [phone] Alma Rosa Preciado MD [address] [place], [place] [phone] Seborrheic dermatitis (Primary Dx) Social History Tobacco Use Types [...] [facility] [address] [place], [place] [phone] Alma Rosa Preciado MD [address] [place], [place] [phone] 07/06/2025 2:00 PM EDT Office Visit [facility] AD[facility] D[facility] [address] [place] [address] Sanchez Preciado documented as of this encounter Visit Diagnoses Diagnosis Seborrheic dermatitis- Primary Unspecified seborrheic dermatitis documented in this encounter Care Teams Furnace Liner Relationship Specialty Start Date End Date Alma Rosa Preciado MD [address] [place] [address] [place] [address] PCP - General Internal Medicine 10/22/18 documented as of this encounter
--- OUTSIDE RECORDS SUMMARY | 2025-01-23 13:16 | XMS_ITS | Encounter Summary ---
Author Organization [employer] Address [address] [facility] 7 [place] [address] Care Team Providers Care Field Organizer Name Role Phone Alma Rosa Preciado MD Primary Care Provider [phone] Encounter Details Date Type Department Care Team ([facility] Contact Info) Description 09/24/2024 Orders Only [facility] [address] [place], [place] [phone] Alma Rosa Preciado MD [address] [place] [address] Social History Tobacco Use Types Packs/Day Years [...] 9:00 AM EDT Office Visit [facility] [address] [place] [address] Alma Rosa Preciado MD [address] [place] [address] 07/06/2025 2:00 PM EDT Office Visit [facility] [address] [place] [address] Sanchez Preciado documented as of this encounter Visit Diagnoses Not on filedocumented in this encounter Care Teams Field Organizer Relationship Specialty Start Date End Date Alma Rosa Preciado MD [address] [place] [address] PCP - General Internal Medicine 10/22/18 documented as of this encounter
--- OUTSIDE RECORDS SUMMARY | 2025-01-23 13:16 | XMS_ITS | Encounter Summary ---
Author Organization [employer] Address [address] [place] [address] Care Team Providers Care Broadcast Engineer Name Role Phone Alma Rosa Preciado MD Primary Care Provider [phone] Encounter Details Date Type Department Care Team (Late st Contact Info) Description 07/16/2023 Orders Only [facility] [address] [place] [address] Alma Rosa Preciado MD [address] [place] [address] Social History Tobacco Use Types Packs/Day Years [...] Description 02/17/2025 9:00 AM EDT Office Visit [facility] [address] [place] [address] Alma Rosa Preciado MD [address] [place] [address] 07/06/2025 2:00 PM EDT Office Visit [facility] AD[facility] D[facility] [address] [place], [place] [phone] Sanchez Preciado documented as of this encounter Visit Diagnoses Not on filedocumented in this encounter Care Teams Broadcast Engineer Relationship Specialty Start Date End Date Alma Rosa Preciado MD [address] [place] [address] PCP - General Internal Medicine 10/22/18 documented as of this encounter
== END 2025-01-23 11:20 | disposition home or self-care (01) ==
LOC: HO.CHCLNP 11:19
PROVIDERS: Visit Provider Student in an Organized Health Care Education/Training Program
DX: L97.529 Non-pressure chronic ulcer of other part of left foot with unspecified severity (principal)
CPT/HCPCS: 87070; 87077; 87147; 87186; 87205

== ENCOUNTER → 2025-04-22 09:38 | Outpatient (BNV) | payer MEDICAID, SELFPAY | PROVIDERS: PCP Internal Medicine; Visit Provider Radiology Diagnostic Radiology | DX: S92.902A Unspecified fracture of left foot, initial encounter for closed fracture (principal) | CPT/HCPCS: 73620 ==

== ENCOUNTER 2025-05-15 11:00 | Outpatient (RCR) | payer MEDICAID, SELFPAY ==
--- NOTE | ~2025-05-15 | XR_ITS ---
EXAMINATION: XR FOOT, LEFT CLINICAL INFORMATION: FRACTURE COMPARISON: September 01, 2024 TECHNIQUE: AP, lateral, and oblique views of the left foot. 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 There is varus deformity across the DIP joint of the second digit. There is chronic deformity of the second, third, and fourth metatarsal heads likely from chronic erosions and/or remote fractures. No new erosions are identified. Moderate arterial vascular calcifications are present. There is an Achilles calcaneal spur. XR/XR foot LT 2V IMPRESSION: Chronic changes, as above. Electronically signed by: Bernard De Anda MD 04/22/2025 11:38 AM EDT
== END 2025-05-15 16:18 | disposition home or self-care (01) ==
LOC: HO.WCC 11:00
PROVIDERS: PCP Internal Medicine; Visit Provider Surgery Surgical Oncology
DX: E11.621 Type 2 diabetes mellitus with foot ulcer (principal); L97.522 Non-pressure chronic ulcer of other part of left foot with fat layer exposed; E11.40 Type 2 diabetes mellitus with diabetic neuropathy, unspecified; M21.272 Flexion deformity, left ankle and toes; I10 Essential (primary) hypertension; F10.90 Alcohol use, unspecified, uncomplicated; Z79.84 Long term (current) use of oral hypoglycemic drugs; Z79.899 Other long term (current) drug therapy
CPT/HCPCS: 11042; 73620; 99212; 99213

== ENCOUNTER 2025-06-18 12:09 | Emergency (ER) | payer MEDICAID, SELFPAY ==
--- NOTE | ~2025-06-18 | XR_ITS ---
EXAMINATION: XR FOOT, LEFT CLINICAL INFORMATION: left second toe infx COMPARISON: None available. TECHNIQUE: AP, lateral, and oblique views of the left foot. 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 There is chronic deformity with flattening, osteophyte formation, and mild expansion of the second, third, and fourth metatarsal heads. Second digit again demonstrates varus deformity of the distal phalanx. No definite cortical erosions are identified. There is no periosteal new bone formation.. At the base of the second, third and fourth metatarsals, there is a transverse lucency of the could represent an insufficiency fracture. Again noted is a small enthesophyte at the Achilles attachment on calcaneus. XR/XR foot LT min 3V IMPRESSION: Possible insufficiency fractures involving the base of the second, third, and fourth metatarsals. No acute erosions. Chronic changes, as above. Electronically signed by: Bernard De Anda MD 06/18/2025 01:03 PM EDT
[2025-06-18 12:27] VITALS: BP 155/77; PULSE 80; RESP 16; TEMP 36.8; O2SAT 95; BMI 28.6
--- NOTE | 2025-06-18 12:36 | ED.LOWEXIN ---
HPI - Extremity Injury (Lower) General Chief Complaint: Extremity Injury, Lower Stated Complaint: Toe injury Time Seen by Provider: 06/18/25 16:44 Source: patient, RN notes reviewed and old records reviewed Mode of arrival: ambulatory Limitations: no limitations History of Present Illness ED Provider: Iraj HPI Narrative: 54-year-old male past medical history significant for diabetes, chronic wounds presents for evaluation of a wound to his left 3rd toe. The patient is status post resection of his left great toe due to infection about 2 or 3 years ago. He states that he has hammertoe of the left 2nd toe. Two days ago he applied a dressing to try and straighten out the left 2nd toe which was wrapped around the left 3rd toe. Yesterday when the patient removed the dressing he noticed that he had a wound to the left 3rd toe with some foul-smelling drainage from the area Due to diabetic neuropathy he has no pain in the area Denies any fevers, chills He does not currently follow up with wound care Related Data Home Medications ?Medication ?Instructions ?Recorded ?Confirmed amlodipine 5 mg tablet 5 mg PO DAILY 06/29/23 canagliflozin 50 mg-metformin ER 2 tab PO QAM 06/29/23 500 mg tablet,extended release 24 hr (Invokamet XR) glipizide 5 mg tablet 5 mg PO TID 06/29/23 ketoconazole 2 % shampoo topical DAILY 06/29/23 omeprazole 20 mg capsule,delayed 20 mg PO QAM 06/29/23 release simvastatin 20 mg tablet 20 mg PO BEDTIME 06/29/23 valsartan 320 1 tab PO DAILY 06/29/23 mg-hydrochlorothiazide 25 mg tablet Previous Rx's ?Medication ?Instructions ?Recorded sildenafil 100 mg tablet (Viagra) 100 mg PO .prn PRN sexual activity 09/19/23 90 days #30 tabs cephalexin 500 mg capsule 500 mg PO QID #27 caps 03/14/24 doxycycline hyclate 100 mg capsule 100 mg PO BID #13 caps 03/14/24 amoxicillin 875 mg-potassium 1 tab PO BID 14 days #28 tabs 09/01/24 clavulanate 125 mg tablet doxycycline monohydrate 100 mg 100 mg PO BID 14 days #28 caps 09/01/24 capsule cephalexin 500 mg capsule 500 mg PO QID #40 caps 06/18/25 doxycycline hyclate 100 mg tablet 100 mg PO BID #20 tabs 06/18/25 Allergies Allergy/AdvReac Type Severity Reaction Status Date / Time piperacillin (From Zosyn) Allergy Unknown Verified 06/18/25 12:27 shellfish derived Allergy Nausea and Verified 06/18/25 12:27 Vomiting tazobactam (From Zosyn) Allergy Unknown Verified 06/18/25 12:27 Review of Systems Constitutional: Constitutional: Denies body ache(s), Denies chills and Denies fever(s) Eyes: Eyes: Denies blurry vision ENT: Denies dry mouth Cardiovascular: Cardiovascular: Denies chest pain and Denies dyspnea on exertion Respiratory: Respiratory: Denies cough and Denies dyspnea on exertion Gastrointestinal: Gastrointestinal: Denies abdominal pain, Denies nausea and Denies vomiting Musculoskeletal: Musculoskeletal: Denies back pain and Denies arthralgias Integumentary/Breasts: Skin/Breast: Reports erythema, Reports skin ulcer and Reports wounds Psychiatric: Psychiatric: Denies anxiety PMFSH Past Medical History Medical History HTN (hypertension) Diabetes mellitus, type II 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 dysfunction Decreased strength Low libido Surgical History History of amputation of toe Social History Social History Patient Tobacco Use Status: Never used Tobacco Advance Directives: No Advance Directives Information Provided: Yes Do you have a plan to hurt others: No Plan Current occupational status: unemployed Physical Exam Vital Signs: Vital Signs: Last Vital Signs Temp 98.2 F 06/18/25 12:27 Pulse 80 06/18/25 12:27 Resp 16 06/18/25 12:27 BP 155/77 H 06/18/25 12:27 Pulse Ox 95 06/18/25 12:27 O2 Del Method Room Air 06/18/25 12:27 BMI result Body Mass Index 28.6 Const: General: healthy appearing, comfortable, no acute distress, alert and awake Nutritional Appearance: well nourished Orientation/consciousness: patient oriented x3 HEENT: Head: Yes normocephalic and Yes atraumatic Eyes: Eyelids: Yes eyelids normal Conjunctivae: conjunctivae normal Sclerae: sclerae normal Corneas: corneas normal Pupils: Equal, round and reactive pupils present EOM: EOMs intact bilaterally Neck: Neck: Yes full ROM Resp: Effort & Inspection: normal respiratory effort, able to speak in complete sentences and not labored Skin: Other: There is a small, about 1cm superficial open wound to the left 3rd toe. There is no significant purulent drainage, but it is rather foul smelling. There is faint granulomatous tissue but no significant beefy red erythema General skin exam: elasticity normal Neuro: General: patient oriented x3 Cranial nerves: Yes Equal, round and reactive pupils present and Yes Bilaterally intact EOM present Cognition (Neuro): normal cognition Course Course Course Narrative: This is an RME: Additional HPI, ROS, PE not included below will be deferred to primary provider. RME assessment and note performed by: Iveth Galindo PA-C This is a 54-year-old male who presents emergency department complaints of left 3rd toe redness, swelling. He has been wearing a splint for hammertoe for the last 2 days. Has been checking his sugars at home, last point of care was 120 - last checked a couple of days ago. Left 2nd toe with open wounds, cellulitic, drainage noted. Palpable DP pulse Plan: Labs, x-ray, further ER evaluation needed. Medical Decision Making Medical Decision Making [facility] Narrative: 54-year-old male with past medical history as above presents for evaluation of a wound to his left 3rd toe that he noticed yesterday. He had a chest x-ray that shows chronic changes, no evidence of osteo, no subcutaneous gas to suggest necrotizing infection. He does appear to have a superficial skin infection. No evidence of systemic infection, no leukocytosis, no fever. We will treat with p.o. doxycycline and cephalexin he will be referred to wound care. Differential Diagnosis Differential Diagnoses: The differential diagnosis associated with the presentation includes Cellulitis Osteomyelitis Contusion Acute wound Admission/Observation Consideration of admission/observation: Escalation of care including admission/observation considered Patient considered for admission but no evidence of systemic infection in his 1st visit, we will treat with oral antibiotics Lab Data [facility] Lab Attestation statement: I reviewed the patient's lab results. No leukocytosis or significant anemia. Normal platelet count. Patient has chronic kidney disease with a BUN of 30 and a creatinine of 1.81, these are consistent with his baseline, no evidence of GAGE 06/18/25 12:46 06/18/25 12:46 Labs: Lab Results 06/18/25 Range/Units 12:46 WBC 7.5 (4.8-10.8) X10*3/uL RBC 4.12 L (4.60-5.80) X10*6/uL Hgb 12.0 L (14.0-18.0) g/dl Hct 36.1 L (42.0-52.0) % MCV 87.6 (80.0-98.0) fL MCH 29.1 (27.0-33.0) pg MCHC 33.2 (31.0-36.0) g/dl RDW 13.2 (11.0-16.0) % Plt Count 218 (160-400) X10*3/uL MPV 9.4 (9.4-12.4) fL Immature Gran % (Auto) 0.4 (0.0-0.4) % Neut % (Auto) 65.3 (45-73) % Lymph % (Auto) 19.8 L (20-40) % [place] % (Auto) 8.1 (2-11) % Eos % (Auto) 5.7 H (0-4) % Baso % (Auto) 0.7 (0-2) % Lymph # (Auto) 1.5 (1.2-4.9) X10*3/uL [place] # (Auto) 0.6 (0.1-1.2) X10*3/uL Eos # (Auto) 0.4 (0.0-0.4) X10*3/uL Baso # (Auto) 0.1 (0.0-0.2) X10*3/uL Abs Immat Gran (auto) 0.03 (0.00-0.03) X10*3/uL Absolute Neuts (auto) 4.9 (2.0-8.3) x10*3/uL Absolute Nucleated RBC 0.000 (0.0-0.012) X10*3/uL Nucleated RBC % (auto) 0.0 (0.0-0.2) /100WBC Sodium 139 (135-145) mmol/L Potassium 4.5 (3.3-5.1) mmol/L Chloride 107 (96-108) mmol/L Carbon Dioxide 26 (22-29) mmol/L Anion Gap 11 L (12-20) BUN 30 H (9-16) mg/dL Creatinine 1.81 H (0.5-1.4) mg/dL Estim Creat Clear Calc 56.5 Estimated GFR 39 Random Glucose 177 H (60-115) mg/dL Calcium 8.6 (8.4-10.2) mg/dL Magnesium 2.5 (1.6-2.6) mg/dL Total Bilirubin 0.3 (0.0-1.0) mg/dL Direct Bilirubin 0.1 (0.0-0.5) mg/dL AST 23 (5-37) U/L ALT 27 (0-40) U/L Alkaline Phosphatase 76 (39-117) U/L Total Protein 7.0 (6.5-8.0) g/dL Albumin 4.1 (3.5-5.0) g/dL Independent Interpretation I performed an independent interpretation of an: Plain X-Ray Interpretation: FINDINGS: Again seen are postoperative changes after amputation through the neck of the first metatarsal. There is chronic deformity with flattening, osteophyte formation, and mild expansion of the second, third, and fourth metatarsal heads. Second digit again demonstrates varus deformity of the distal phalanx. No definite cortical erosions are identified. There is no periosteal new bone formation.. At the base of the second, third and fourth metatarsals, there is a transverse lucency of the could represent an insufficiency fracture. Again noted is a small enthesophyte at the Achilles attachment on calcaneus. XR/XR foot LT min 3V IMPRESSION: Possible insufficiency fractures involving the base of the second, third, and fourth metatarsals. No acute erosions. Chronic changes, as above. Electronically signed by: Bernard De Anda MD 06/18/2025 01:03 PM EDT Radiology Impression Discussion of test interpretation with radiology: I have reviewed the radiologist's reading. Discharge Plan Discharge Clinical Impression: Open wound of third toe of left foot Patient Disposition: Home, Self-Care Instructions: Wound Infection (ED), Acute Wounds (ED) Additional Instructions: Your blood work today was reassuring. Your x-ray showed chronic osteomyelitis but no acute changes I recommend applying topical bacitracin daily and taking the cephalexin and doxycycline as prescribed for 10 days. Follow up with wound care as an outpatient. Return for new or worsening symptoms Prescriptions: New cephalexin 500 mg capsule 500 mg PO QID Qty: 40 0RF doxycycline hyclate 100 mg tablet 100 mg PO BID Qty: 20 0RF No Action sildenafil [Viagra] 100 mg tablet 100 mg PO .prn PRN (Reason: sexual activity) 90 Days Qty: 30 0RF Rx Instructions: [id number] [facility] [id number] Member [id number] cephalexin 500 mg capsule 500 mg PO QID Qty: 27 0RF doxycycline hyclate 100 mg capsule 100 mg PO BID Qty: 13 0RF amoxicillin-pot clavulanate 875-125 mg tablet 1 tab PO BID 14 Days Qty: 28 0RF doxycycline monohydrate 100 mg capsule 100 mg PO BID 14 Days Qty: 28 0RF omeprazole 20 mg capsule,delayed release(DR/EC) 20 mg PO QAM Invokamet XR 50-500 mg tablet, IR - ER, biphasic 24hr 2 tab PO QAM simvastatin 20 mg tablet 20 mg PO BEDTIME valsartan-hydrochlorothiazide 320-25 mg tablet 1 tab PO DAILY amlodipine 5 mg tablet 5 mg PO DAILY glipizide 5 mg tablet 5 mg PO TID ketoconazole 2 % shampoo topical DAILY Referrals: [facility] [place]Provider Group] Referral Note: left 3rd toe wound Print Language: Indonesian
[2025-06-18 12:50] LABS: MANUAL DIFF FLAG NO
[2025-06-18 12:54] LABS: Hematocrit 36.1 % (42.0-52.0); Hemoglobin 12.0 g/dl (14.0-18.0); Imm Gran Abs Auto 0.03 X10*3/uL (0.00-0.03); Imm Gran Pct Auto 0.4 % (0.0-0.4); Lymphocytes Absolute Auto 1.5 X10*3/uL (1.2-4.9); Mean Corpuscular HGB Conc 33.2 g/dl (31.0-36.0); Mean Corpuscular Hemoglobin 29.1 pg (27.0-33.0); Mean Corpuscular Volume 87.6 fL (80.0-98.0); NRBC Abs Auto 0.000 X10*3/uL (0.0-0.012); NRBC Pct Auto 0.0 /100WBC (0.0-0.2); Platelet Count 218 X10*3/uL (160-400); Red Blood Count 4.12 X10*6/uL (4.60-5.80); White Blood Count 7.5 X10*3/uL (4.8-10.8)
[2025-06-18 13:05] LABS: Alanine Aminotransferase 27 U/L (0-40); Albumin Level 4.1 g/dL (3.5-5.0); Alkaline Phosphatase 76 U/L (39-117); Anion Gap 11 (12-20); Aspartate Amino Transferase 23 U/L (5-37); Blood Urea Nitrogen 30 mg/dL (9-16); Calcium 8.6 mg/dL (8.4-10.2); Carbon Dioxide 26 mmol/L (22-29); Chloride 107 mmol/L (96-108); Creatinine Clr Calc Pharmacy 56.5; Estimated Glomerular Filt Rate 39; Magnesium 2.5 mg/dL (1.6-2.6); Potassium 4.5 mmol/L (3.3-5.1); Sodium 139 mmol/L (135-145); Total Protein 7.0 g/dL (6.5-8.0)
--- OUTSIDE RECORDS SUMMARY | 2025-06-18 16:28 | XMS_ITS | Encounter Summary ---
Author Organization [employer] Address [address] [place] [address] 7 [place] [address] Care Team Providers Care Hvac Design Mechanical Engineer Name Role Phone Alma Rosa Preciado MD Primary Care Provider [phone] Encounter Details Date Type Department Care Team ([facility] Contact Info) Description 03/20/2024 Orders Only [facility] MED & PEDS [address] [place] [address] Alma Rosa Preciado MD [address] [place] [address] Social History Tobacco Use Types Packs/Day Years [...] Care Team (Late st Contact Info) Description 07/06/2025 2:00 PM EDT Office Visit [facility] ADULT DENTAL [address] [place] [address] Sanchez Preciado 07/08/2025 1:00 PM EDT Office Visit [facility] ADULT DENTAL [address] [place] [address] Shaq Turcios DMD [address] [place] [address] 07/09/2025 9:45 AM EDT Office Visit [facility] MED & PEDS [address] [place] [address] Alma Rosa Preciado MD [address] [place] [address] documented as of this encounter Visit Diagnoses Not on filedocumented in this encounter Care Teams Hvac Design Mechanical Engineer Relationship Specialty Start Date End Date Alma Rosa Preciado MD [address] [place] [address] PCP - General Internal Medicine 10/22/18 documented as of this encounter
--- OUTSIDE RECORDS SUMMARY | 2025-06-18 16:28 | XMS_ITS | Encounter Summary ---
Author Organization [employer] Address [address] [place] [address] 7 [place] [address] Care Team Providers Care Medical Technical Writer Name Role Phone Alma Rosa Preciado MD Primary Care Provider [phone] Encounter Details Date Type Department Care Team (Late Contact Info) Description 07/16/2023 Orders Only [facility] MED & PEDS [address] [place] [address] Alma Rosa Prceiado MD [address] [place] [address] Social History Tobacco Use Types Packs/Day Years [...] Department Care Team (Late Contact Info) Description 07/06/2025 2:00 PM EDT Office Visit [facility] ADULT DENTAL [address] [place] [address] Sanchez Preciado 07/08/2025 1:00 PM EDT Office Visit [facility] ADULT DENTAL [address] [place] [address] Shaq Turcios DMD [address] [place] [address] 07/09/2025 9:45 AM EDT Office Visit [facility] MED & PEDS [address] [place] [address] Alma Rosa Preciado MD [address] [place] [address] documented as of this encounter Visit Diagnoses Not on filedocumented in this encounter Care Teams Medical Technical Writer Relationship Specialty Start Date End Date Alma Rosa Preciado MD [address] [place] [address] PCP - General Internal Medicine 10/22/18 documented as of this encounter
--- OUTSIDE RECORDS SUMMARY | 2025-06-18 16:28 | XMS_ITS | Encounter Summary ---
Author Organization [employer] Address [address] [place] [address] [address] [place] [address] Care Team Providers Care Parts Technician Name Role Phone Alma Rosa Preciado MD Primary Care Provider [phone] Reason for Visit * Reason Onset Date Comments rs no show appt 05/08/2025 Encounter Details Date Type Department Care Team ([facility] Contact Info) Description 05/08/2025 Telephone [facility] ADULT DENTAL [address] [place] [address] Shaq Turcios, DMD [address] [place] [address] rs no show appt Social History Tobacco Use Types Packs/Day Years Used Date Smoking Tobacco: Never Smokeless Tobacco: Never Housing Stability Answer Date Recorded What is your housing situation today? I have osiel orozco 02/05/[address] you li ve. Do you have problems with any of the following? None of the above 02/05/2025 Food Insecurity Answer Date Recorded Within the past 12 months, y ou worried that your food would run out before you got money to buy more: Never True 02/05/2025 Within the past 12 months,th e food you bought just didn't last and you didn't have enough money to get more: Never True Transportation Answer Date Recorded In the past 12 months, has l ack of transportation kept you from medical appts, meetings, work or from getting things needed for daily living? No 02/05/2025 Utilities Answer Date Recorded In the past 12 months, has t he electric, gas, oil or water company threatened to shut off services in your home? No 02/05/2025 Internet Access Answer Date Recorded Internet Access Q1 Yes 02/05/2025 Internet Access Q2 Not on file 02/05/2025 Sex and Gender Information Value Date Recorded Sex Assigned at Male 08/21/2022 10:20 AM EDT Legal Sex Male 10:20 AM EDT Gender Identity Male 08/21/2022 10:20 AM EDT Sexual Orientation Straight 08/21/2022 10 :20 AM EDT documented as of this encounter Miscellaneous Notes * Telephone Encounter - Barbie Kolb - 05/20/2025 10:07 AM EDT Patient is looking to schedule appt to start partials. Appt not requested from visit in 12/2024. Appt based on last appt no show for extractions and partials. He is looking to reschedule * Telephone Encounter - Barbie Kolb - 05/08/2025 11:21 AM EDT Patient seeking to rs no show appt from 01/20. Informed via front desk attendant [facility] that office is unable tors patient without provider approval due to consistent no shows and cancellations Patient has been advised that front desk attendant will reach out with further information after conferring with provider. Patient understood documented in this encounter Plan of Treatment Upcoming Encounters Date Type Department Care Team (Late st Contact Info) Description 07/06/2025 2:00 PM EDT Office Visit [facility] ADULT DENTAL [address] [place] [address] Sanchez Preciado 07/08/2025 1:00 PM EDT Office Visit [facility] ADULT DENTAL [address] [place] [address] Shaq Turcios DMD [address] [place] [address] 07/09/2025 9:45 AM EDT Office Visit [facility] MED & PEDS [address] [place] [address] Alma Rosa Preciado MD [address] [place] [address] documented as of this encounter Visit Diagnoses Not on filedocumented in this encounter Care Teams Parts Technician Relationship Specialty Start Date End Date Alma Rosa Preciado MD [address] [place] [address] PCP - General Internal Medicine 10/22/18 documented as of this encounter
--- OUTSIDE RECORDS SUMMARY | 2025-06-18 16:28 | XMS_ITS | Clinical Summary ---
Author Organization [employer] Address [address] [place] [address] 7 [place] [address] Care Team Providers [employer] Name Role Phone Alma Rosa Preciado MD Primary Care Provider [phone] Allergies Active Allergy Reactions Criticality Noted Date [...] ONCE DAILY NEEDED. 8 tablet 5 02/23/20 Active Lancet Device miscIndications :Type 2 diabetes mellitus with hyperglycemia, with long-term current use of insulin ([facility]) FS 3 times a day 100 each 06/29/20 23 Active glipiZIDE (Glucotrol) 5 MG tablet TAKE 1 TABLET BY MOUTH THREE TIMES DAILY BEFORE MEALS 270 tablet 1 07/02/20 23 Active Continuous Blood Gluc Load Test Mechanic (FreeStyle Madelyn 2 Delano) deviceIndicatio ns:Type 2 diabetes mellitus with hyperglycemia, with long-term current use of insulin (CMS/[facility]) To use daily 1 each 07/12/20 23 Active Continuous Blood Gluc Sensor (FreeStyle Madelyn 2 Sensor) miscIndications :Type 2 diabetes mellitus with hyperglycemia, with long-term current use of insulin ([facility]) To use daily 2 each 07/12/20 Active Blood Pressure kitIndications: Primary hypertension To check the BP every day 1 kit 09/07/20 23 Active simvastatin (Zocor) 20 MG tabletIndicatio ns:Type 2 diabetes mellitus with diabetic peripheral angiopathy without gangrene, with long-term current use of insulin (CMS/HCC) TAKE 1 TABLET BY MOUTH AT BEDTIME 90 tablet 1 12/03/19 24 Active ketoconazole (NIZOral) 2 % shampooIndicati ons:Seborrheic dermatitis apply topically every day to the affected area(s), lather, leave in place for 5 minutes, and then rinse off with water 120 mL 1 01/03/20 25 Active bacitracin (RA Bacitracin) 500 UNIT/GM ointment Apply topically 2 times daily. 14 g 01/24/20 25 Active dapagliflozin (Farxiga) 10 MGIndications:T ype 2 diabetes mellitus with hyperglycemia, with long-term current use of insulin (CMS/HCC) Take 1 tablet (10 mg) by mouth Once per day. 30 tablet 02/04/20 25 026 Active omeprazole (PriLOSEC) [address] capsuleIndicati ons:Gastroesoph ageal reflux disease without esophagitis TAKE 1 CAPSULE BY MOUTH EVERY DAY BEFORE BREAKFAST 90 capsule 1 03/23/20 25 Active valsartan-hydro CHLOROthiazide (Diovan-HCT) 320-25 MG tabletIndicatio ns:Primary hypertension TAKE 1 TABLET BY MOUTH EVERY DAY IN THE MORNING 90 tablet 1 03/23/20 25 Active empagliflozin (Jardiance) 25 MGIndications:T ype 2 diabetes mellitus with hyperglycemia, with long-term current use of insulin (CMS/[facility]) Take 1 tablet (25 mg) by mouth Once per day. 30 tablet 03/24/20 25 026 Active metFORMIN, MOD, (Glumetza) 500 MG 24 hr tablet Take 500 mg by mouth. Do not crush, chew, or split. Active metFORMIN, MOD, (Glumetza) 500 MG 24 hr tabletIndicatio ns:Type 2 diabetes mellitus with hyperglycemia, with long-term current use of insulin (CMS/HCC) Take 1 tablet (500 mg) by mouth with evening meal. Do not crush, chew, or split. 30 tablet 03/24/20 25 026 Active amLODIPine (Norvasc) 10 MG tablet Take 1 tablet (10 mg) by mouth Once per day. 30 tablet 11 05/26/20 25 026 Active amLODIPine (Norvasc) 10 MG tablet Take 1 tablet (10 mg) by mouth Once per day. 10 mg once a day. Dose increased to 10 mg once a day. Please disregard the script for 5 mg daily. 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 He had a divorce and rushed in to a relationship too soon and now he has a partner and a baby and he is not able to provide for them. Homelessness. Patient will benefit from Ind. Therapy. At this time Caleb Arias meets criteria for Visit Diagnoses: Problem List Items Addressed This Visit Other Mild depressive disorder MEENA (generalized anxiety disorder) Patient ready to address current needs Yes Strengths include willing to seek help PLAN: 1. Follow up with [facility]: Not recommended for follow-up 2. Patient goal is improve mental health 3. Behavioral Recommendations a. Ind. Therapy, referral will be submitted b. Use of coping skills provided as recommended c. [facility] contact number for support as needed MEENA [...] T2DM (type 2 diabetes mellitus) 11/06/2017 Encounters * This document contains information received from the source organization and may not represent a complete record from that organization. Date Type Department Care Team Description 06/18/2025 Orders Only GENERIC EXTERNAL DATA DEPARTMENT Provider, Generic External Data 05/29/2025 10:30 AM EDT Office Visit [facility] [address] [place] [address] Shaq Turcios DMD Dental caries (Primary Dx); Periodontal disease 05/26/2025 Telephone [facility] [address] [place] [address] Alma Rosa Preciado MD Chart Prep 05/25/2025 Travel 05/25/2025 Refill [facility] [address] [place] [address] Alma Rosa Preciado MD 05/20/2025 Patient Outreach [facility] [address] [place] [address] Alma Rosa Preciado MD Pre-visit Planning (SDOH screening completed on 02/05/25 ) 05/08/2025 Telephone [facility] [address] [place] [address] Shaq Turcios DMD rs no show appt 04/22/2025 Telephone [facility] [address] [place] [address] Alma Rosa Preciado MD 04/22/2025 Orders Only [facility] External Provider, [facility] 03/24/2025 Telephone [facility] [address] [place] [address] Alma Rosa Preciado MD Prior Authorization 03/21/2025 Refill [facility] [address] [place] [address] Alma Rosa Preciado MD Gastroesophageal reflux disease without esophagitis; Primary hypertension 03/19/2025 Orders Only [facility] [address] [place] [address] Alma Rosa Preciado MD Type 2 diabetes mellitus with hyperglycemia, with long-term current use of insulin ([facility]) (Primary Dx) from Last 3 Months Immunizations Immunization Administration Dates Next Due Influenza Injectable Quadriv alant Preservative Free IIV4 MDCK 11/20/2017 Influenza injectable quadrivalent preservative f ree 12/01/2020,11/15/2015 Influenza, IIV3, injectable 12/01/2020 Moderna Covid-19 Vaccine 12+ 10/18/2021 Pfizer Covid-19 Vaccine 12+ 03/14/2021, Pneumococcal Polysaccharide PPSV23 12/01/2020 Tdap 11/15/2015 Social History Tobacco Use Types Packs/Day Years Used Date Smoking Tobacco: Never Smokeless Tobacco: Never Tobacco Cessation:Counseling Given: Not Answered Depression Answer Date Recorded Patient Health Questionnaire-9 Score 7 06/11/2025 Patient Health Questionnaire-9 Score 7 06/11/2025 Last PHQ-9: Questionnaire Data Not on file 0 06/11/2025 Housing Stability Answer Date Recorded What is [...] off services in your home? No 02/05/2025 Depression Answer Date Recorded Patient Health Questionnaire-2 Score 2 06/11/2025 Internet Access Answer Date Recorded Internet Access [...] 94 01/23/2025 10:10 AM EDT Temperature 36.2 C (97.1 F) 01/23/2025 10:10 AM EDT Respiratory Rate 18 01/23/2025 10:10 AM EDT [...] Description 07/06/2025 2:00 PM EDT Office Visit [facility] [address] [place] [address] Sanchez Preciado 07/08/2025 1:00 PM EDT Office Visit [facility] [address] [place] [address] Shaq Turcios DMD [address] [place] [address] 07/09/2025 9:45 AM EDT Office Visit [facility] [address] [place] [address] Alma Rosa Preciado MD [address] [place] [phone] Health Maintenance Due Date Last Done Comments CT Colonography 1970 Colonoscopy 1970 Colorectal Cancer Screening 1970 FIT DNA/Cologuard 1971 FIT 1970 [...] PCV) 12/01/2021 12/01/2020 Lipid Panel 03/16/2023 03/16/2022 COVID-19 Vaccine ( season) 2024 10/18/2021, 03/14/2021, 02/21/2021 Dental Oral Exam 10/01/2024 03/31/2024, 10/2021, 03/22/2022 Dental X-Ray: Bitewings 04/01/2025 03/31/20 24, 03/22/2022, 09/20/2021 Diabetes: Hemoglobin A1C 04/24/2025 04/ 025, 01/15/2024, 06/12/2023, Additional history exists Influenza Vaccine (#1) 2025 , 12/01/2020, 11/20/2017, Additional history exists Dental Prophylaxis 07/03/2025 12/30/2024, 0 03/31/2024, 04/19/2022 DTaP/Tdap/Td Vaccines (2 - Td or Tdap) 11/15/2025 11/15/2015 SDOH Screening 02/05/2026 02/05/2025 Disability Screening 05/25/2026 05/25/2025 Tobacco Screening 05/29/2026 05/29/2025 Depression Screening 06/11/2026 06/11/2025, 06/11/20 Dental X-Ray: Full Mouth 05/16/2027 05/15/2024, 06/10/2021 RSV Patients and Patients Aged 60 years [...] patient's age to complete this topic Meningococcal B Vaccine Aged Out No l onger eligible based on patient's age to complete [...] Procedure Name Priority Date/Time Associated Diagnosis Comments MAGNESIUM Routine 06/18/2025 12:46 PM EDT BASIC METABOLIC PANEL Routine 06/18/2025 12:46 PM EDT HEPATIC FUNCTION PANEL Routine 06/18/2025 12:46 PM EDT CBC WITH AUTO DIFFERENTIAL Routine 06/18/2025 12:46 PM EDT XR FOOT 3+ VIEWS LEFT Routine 06/18/2025 11:54 AM EDT CASE PRESENTATION, DETAILED AND EXTENSIVE TREATMENT PLANNING Routine 05/29/2025 10:30 AM EDT Dental caries Periodontal disease LIMITED ORAL EVALUATION - PROBLEM FOCUSED Routine 05/29/2025 10:30 AM EDT Dental caries Periodontal disease XR FOOT 1-2 VIEWS LEFT Routine 04/22/2025 9:38 AM EDT POCT GLYCATED HEMOGLOBIN, TOTAL Routine 01/23/2025 10:12 AM EDT Type 2 diabetes mellitus with hyperglycemia, with long-term current use of insulin ([facility]) Full PROPHYLAXIS - ADULT Routine 12/30/2024 9:00 AM EDT PANORAMIC RADIOGRAPHIC IMAGE Routine 05/15/2024 10:30 AM EDT Dental caries BITEWINGS - 4 RADIOGRAPHIC IMAGES Routine 03/31/2024 1:00 PM EDT PERIODIC ORAL EVALUATION - ESTABLISHED PATIENT Routine 03/31/2024 1:00 PM EDT Malocclusion Periodontal disease Secondary dental caries associated with failed or defective dental anabaptism LIPID PANEL, STANDARD Routine 03/16/2022 10:00 AM EDT from Last 3 Months or Most Recently Relevant to Health Maintenance Results * (ABNORMAL) CBC auto differential (06/18/2025 12:46 PM EDT) White Blood Count 7.5 4.8 - 10.8 X10*3/uL [facility] Red Blood Count 4.12(L) 4.60 - 5.80 X10*6/uL [facility] Hemoglobin 12.0(L) 14.0 - 18.0 g/dl [facility] Hematocrit 36.1(L) 42.0 - 52.0 % [facility] Mean Corpuscular Volume 87.6 80.0 - 98.0 fL [facility] Mean Corpuscular Hemoglobin 29.1 27.0 - 33.0 pg [facility] Mean Corpuscular HGB Conc 33.2 31.0 - 36.0 g/dl [facility] Red Cell Distribution Width 13.2 11.0 - 16.0 % [facility] Platelet Count 218 160 - 400 X10*3/uL [facility] Mean Platelet Volume 9.4 9.4 - 12.4 fL [facility] Neutrophils Percent Auto 65.3 45 - 73 % [facility] Imm Gran Pct Auto 0.4 0.0 - 0.4 % [facility] Lymphocytes Percent Auto 19.8(L) 20 - 40 % [facility] Monocytes Percent Auto 8.1 2 - 11 % [facility] Eosinophils Percent Auto 5.7(H) 0 - 4 % [facility] Basophils Percent Auto 0.7 0 - 2 % [facility] NRBC Pct Auto 0.0 0.0 - 0.2 /100WBC [facility] Neutrophils Absolute Auto 4.9 2.0 - 8.3 x10*3/uL [facility] Imm Gran Abs Auto 0.03 0.00 - 0.03 X10*3/uL [facility] Lymphocytes Absolute Auto 1.5 1.2 - 4.9 X10*3/uL [facility] Monocytes Absolute Auto 0.6 0.1 - 1.2 X10*3/uL [facility] Eosinophils Absolute Auto 0.4 0.0 - 0.4 X10*3/uL [facility] Basophils Absolute Auto 0.1 0.0 - 0.2 X10*3/uL [facility] NRBC Abs Auto 0.000 0.0 - 0.012 X10*3/uL [facility] 06/18/2025 12:4 6 PM EDT 06/18/2025 12:49 PM EDT Generic External Data Provider LAB BLOOD ORDERAB LES Final Result Performing Organization Address [facility] Co de Phone Number [facility] [address] [place] [phone] * Magnesium (06/18/2025 12:46 PM EDT) Magnesium 2.5 1.6 - 2.6 mg/dL [facility] 06/18/2025 12:4 6 PM EDT 06/18/2025 12:49 PM EDT Generic External Data Provider LAB BLOOD ORDERAB LES Final Result Performing Organization Address [facility] Co de Phone Number [facility] [address] [place] [phone] * Hepatic Function Panel (06/18/2025 12:46 PM EDT) Bilirubin, Total 0.3 0.0 - 1.0 mg/dL [facility] Bilirubin, Direct 0.1 0.0 - 0.5 mg/dL [facility] Aspartate Amino Transferase 23 5 - 37 U/L [facility] Alanine Aminotransferase 27 0 - 40 U/L [facility] Total Protein 7.0 6.5 - 8.0 g/dL [facility] Albumin Level 4.1 3.5 - 5.0 g/dL [facility] Alkaline Phosphatase 76 39 - 117 U/L [facility] 06/18/2025 12:4 6 PM EDT 06/18/2025 12:49 PM EDT us Generic External Data Provider LAB BLOOD ORDERAB LES Final Result [facility] [address] [place] [phone] * (ABNORMAL) Basic Metabolic Panel (06/18/2025 12:46 PM EDT) Sodium 139 135 - 145 mmol/L [facility] Potassium 4.5 3.3 - 5.1 mmol/L [facility] Chloride 107 96 - 108 mmol/L [facility] Carbon Dioxide 26 22 - 29 mmol/L [facility] Anion Gap 11(L) 12 - 20 [facility] Urea Nitrogen (BUN) 30(H) 9 - 16 mg/dL [facility] Creatinine, Serum 1.81(H) 0.5 - 1.4 mg/dL [facility] Creatinine Clr Calc Pharmacy 56.5 [facility] Comment:eGFR (calculated fro m the MDRD study equation) and eCrCl(calculated from the Cockcroft-Gault equation) are based ondifferent parameters and may not yield comparable results.If eCrCl result is absurd, please check patient'sheight/weight. Estimated Glomerular Filt Rate 39 [facility] Comment:Chronic Kidney Disea se: Estimated GFR < 60 mL/min/1.54v9Jswnoo Kidney Disease: Estimated GFR < 15 mL/min/1.73m2 Glucose 177(H) 60 - 115 mg/dL [facility] Calcium 8.6 8.4 - 10.2 mg/dL [facility] 06/18/2025 12:4 6 PM EDT 06/18/2025 12:49 PM EDT us Generic External Data Provider LAB BLOOD ORDERAB LES Final Result Performing Organization Address City/State/[facility] Co de Phone Number [facility] [address] [place] [phone] * XR Foot 3+ Views Left (06/18/2025 11:54 AM EDT) Anatomical Region Laterality Modality Lower Extremities, Foot Left Radiogra phic Imaging 06/18/2025 11:5 4 AM EDT Narrative 06/18/2025 1:05 PM EDT [address] [address] XRay Report Signed Patient: Caleb Arias MR#: [id number] 8 : 1970 Acct:[id number] Age/Sex: 54 / M ADM Date: 06/18/25 Loc: HO.ED Attending Dr: Ordering Physician: Iveth Galindo Date of Service: 06/18/25 Procedure(s): XR foot LT min 3V Accession Number(s): [id number] cc: Alma Rosa Preciado MD; Iveth Galindo EXAMINATION: XR FOOT, LEFT CLINICAL INFORMATION: left second toe infx COMPARISON: None available. TECHNIQUE: AP, lateral, and oblique views of the left foot. 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 There is chronic deformity with flattening, osteophyte formation, and mild expansion of the second, third, and fourth metatarsal heads. Second digit again demonstrates varus deformity of the distal phalanx. No definite cortical erosions are identified. There is no periosteal new bone formation.. At the base of the second, third and fourth metatarsals, there is a transverse lucency of the could represent an insufficiency fracture. Again noted is a small enthesophyte at the Achilles attachment on calcaneus. XR/XR foot LT min 3V IMPRESSION: Possible insufficiency fractures involving the base of the second, third, and fourth metatarsals. No acute erosions. Chronic changes, as above. Electronically signed by: Bernard De Anda MD 06/18/2025 01:03 PM EDT RP Dictated By: Bernard De Anda MD Signed By: <Electronically signed by Bernard De Anda MD in OV> 06/18/25 1303 DD/ 1154 TD/TT: 06/18/25 1253 Continuous Vulcanizing Machine Operator: Procedure Note Donotuseinterpreter, Image - 06/18/[address] [address] XRay Report Signed Patient: Caleb Arias JMR#: [id number] 8 : 1970Acct:[id number] Age/Sex: 54 / MADM Date: 06/18/25 Loc: HO.ED Attending Dr: Ordering Physician: Iveth Galindo Date of Service: 06/18/25 Procedure(s): XR foot LT min 3V Accession Number(s): [id number] cc: Alma Rosa Preciado MD; Iveth Galindo EXAMINATION: XR FOOT, LEFT CLINICAL INFORMATION: left second toe infx COMPARISON: None available. TECHNIQUE: AP, lateral, and oblique views of the left foot. 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 There is chronic deformity with flattening, osteophyte formation, and mild expansion of the second, third, and fourth metatarsal heads. Second digit again demonstrates varus deformity of the distal phalanx. No definite cortical erosions are identified. There is no periosteal new bone formation.. At the base of the second, third and fourth metatarsals, there is a transverse lucency of the could represent an insufficiency fracture. Again noted is a small enthesophyte at the Achilles attachment on calcaneus. XR/XR foot LT min 3V IMPRESSION: Possible insufficiency fractures involving the base of the second, third, and fourth metatarsals. No acute erosions. Chronic changes, as above. Electronically signed by: Bernard De Anda MD 06/18/2025 01:03 PM EDT Dictated By: Bernard De Anda MD Signed By: <Electronically signed by Bernard De Anda MD in OV> 06/18/25 1303 DD/ 1154 TD/TT: 06/18/25 1253 Continuous Vulcanizing Machine Operator: [facility] External Provider IMG XR PROCEDURES Final Result * XR Foot 1-2 Views Left (04/22/2025 9:38 AM EDT) Anatomical Region Laterality Modality Lower Extremities, Foot Left Radiogra phic Imaging 04/22/2025 9:38 AM EDT Narrative 04/22/2025 11:42 AM EDT [facility] [address] [place] [address] XRay Report Signed Patient: Caleb Arias MR#: [id number] 8 : 1970 Acct:[id number] Age/Sex: 54 / M ADM Date: 04/22/25 Loc: HO.[facility] Attending Dr: Daphnie Sanchez MD Ordering Physician: Daphnie Sanchez MD Date of Service: 04/22/25 Procedure(s): XR foot LT 2V Accession Number(s): [id number] cc: Alma Rosa Preciado MD; Daphnie Sanchez MD EXAMINATION: XR FOOT, LEFT CLINICAL INFORMATION: FRACTURE COMPARISON: September 01, 2024 TECHNIQUE: AP, lateral, and oblique views of the left foot. 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 There is varus deformity across the DIP joint of the second digit. There is chronic deformity of the second, third, and fourth metatarsal heads likely from chronic erosions and/or remote fractures. No new erosions are identified. Moderate arterial vascular calcifications are present. There is an Achilles calcaneal spur. XR/XR foot LT 2V IMPRESSION: Chronic changes, as above. Electronically signed by: Bernard De Anda MD 04/22/2025 11:38 AM EDT RP Dictated By: Bernard De Anda MD Signed By: <Electronically signed by Bernard De Anda MD in OV> 04/22/25 1138 DD/ 7 TD/TT: 04/22/25943 Continuous Vulcanizing Machine Operator: Procedure Note Donotuseinterpreter, Image - 04/22/2025 [facility] [address] [place] [address] XRay Report Signed Patient: Caleb Arias JMR#: [id number] 8 : 1970Acct:[id number] Age/Sex: 54 / MADM Date: 04/22/25 Loc: .[facility] Attending Dr: Daphnie Sanchez MD Ordering Physician: Daphnie Sanchez MD Date of Service: 04/22/25 Procedure(s): XR foot LT 2V Accession Number(s): [id number] cc: Alma Rosa Preciado MD; Daphnie Sanchez MD EXAMINATION: XR FOOT, LEFT CLINICAL INFORMATION: FRACTURE COMPARISON: September 01, 2024 TECHNIQUE: AP, lateral, and oblique views of the left foot. 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 There is varus deformity across the DIP joint of the second digit. There is chronic deformity of the second, third, and fourth metatarsal heads likely from chronic erosions and/or remote fractures. No new erosions are identified. Moderate arterial vascular calcifications are present. There is an Achilles calcaneal spur. XR/XR foot LT 2V IMPRESSION: Chronic changes, as above. Electronically signed by: Bernard De Anda MD 04/22/2025 11:38 AM EDT RP Dictated By: Bernard De Anda MD Signed By: <Electronically signed by Bernard De Anda MD in OV> 04/22/25 1138 DD/ 7 TD/TT: 04/22/25943 Continuous Vulcanizing Machine Operator: [facility] External Provider IMG XR PROCEDURES Final Result * (ABNORMAL) POCT HGB A1C (01/23/2025 10:12 AM EDT) Hemoglobin A1C 7.4(A) 4.0 - 6.0 % QC Media Lot # [id number] Lot# Expiration Date Blood 01/23/2025 10:1 2 AM EDT Dai Casey MD POINT OF CARE TEST ENTER/EDIT OR DERABLES Final Result * LIPID PANEL, STANDARD (03/16/2022 10:00 AM EDT) Pathologist [facility] Chol/HDLC Ratio 2.7 <5.0 (calc) [facility] Cholesterol, Total 122 <200 mg/dL [facility] HDL Cholesterol 46 > OR = 40 mg/dL [facility] LDL Cholesterol 63 mg/dL (calc) [facility] Comment: Reference range: <100 Desirable range <100 mg/dL for primary prevention; <70 mg/dL for patients with CHD or diabetic patients with > or = 2 CHD risk factors. LDL-C is now calculated using the Mateo-Canchola calculation, which is a validated novel method providing better accuracy than the Friedewald equation in the estimation of LDL-C. Mateo SS et al. OLGA. 2013;310(19): 8217-7181 (http://education.DocuTAP.com/faq/GYF566) Non-HDL Cholesterol 76 <130 mg/dL (calc) [facility] Comment: For patients with diabetes plus 1 major ASCVD risk factor, treating to a non-HDL-C goal of <100 mg/dL (LDL-C of <70 mg/dL) is considered a therapeutic option. Triglycerides 57 <150 mg/dL [facility] 03/16/2022 10:0 0 AM EDT Alma Rosa Preciado MD LAB BLOOD ORDERABLES Final Result [facility] [address] [place] [address], [place] from Last 3 Months or Most Recently Relevant to Health Maintenance Insurance [facility] MEDICAID STAND ADULT Care Teams [employer] Relationship Specialty Start Date End Date Alma Rosa Preciado MD [address] [place] [address] PCP - General Internal Medicine 10/22/18
--- OUTSIDE RECORDS SUMMARY | 2025-06-18 16:28 | XMS_ITS | Encounter Summary ---
Author Organization [facility] Address [address] [employer] [facility] [address] [place] [phone] Phone Care Team Providers Care Engineer Intern Name Role Phone Alma Rosa Preciado MD Primary Care Pr ovider Encounter Details Date Type Department Care Team (Late st Contact Info) Description 05/24/2023 Procedure Pass OR Admitting Dept - Virtual Department [address] [place] [address] Social History Tobacco Use Types Packs/Day Years Used Date Smoking Tobacco: Never Smokeless Tobacco: Never Alcohol Use Standard Drinks/Week Comments Yes 0 (1 standard drink = 0.6 oz pur e alcohol) Education Answer Date Recorded Are you interested in more education? Not on della e 05/21/2023 Are you concerned about learning? Not on file 05/21/2023 No 05/21/2023 No 05/21/2023 Digital Access Answer Date Recorded No 05/21/2023 No 05/21/2023 Reliable internet access at home? Not on file 05/21/2023 Device with a working camera? Not on file Intimate Partner Violence Answer Date R ecorded Are you denied basic needs s uch as food, clothing, or medical care? No 05/21/2023 In the past 12 months have y ou been in a relationship with a person who hurts, threatens, or tries to control you? No 05/21/2023 Are you denied basic needs s uch as food, clothing, or medical care? No 05/21/2023 In the past 12 months have y ou been in a relationship with a person who hurts, threatens, or tries to control you? No 05/21/2023 Sex and Gender Information Value Date Recorded Sex Assigned at Male 06/28/2023 10:30 PM EDT Legal Sex Male 4:20 PM EDT Gender Identity Male 06/28/2023 10:30 PM EDT Sexual Orientation Straight 06/28/2023 10 :30 PM EDT documented as of this encounter Plan of Treatment Not on file documented as of this encounter Visit Diagnoses Not on filedocumented in this encounter Care Teams Engineer Intern Relationship Specialty Start Date End Date Alma Rosa Preciado MD PCP - General Internal Medicine 05/21/23 documented as of this encounter Additional Source Comments The information contained in this document represents components of the legal health record. It is not the complete legal health record.[facility]
--- OUTSIDE RECORDS SUMMARY | 2025-06-18 16:28 | XMS_ITS | Encounter Summary ---
Author Organization [employer] Address [address] [place] [address] [facility] [place] [address] Care Team Providers Care Rest Room Maid Name Role Phone Alma Rosa Preciado MD Primary Care Provider [phone] Reason for Visit * Reason Comments Med Refill Encounter Details Date Type Department Care Team (Late Contact Info) Description 11/20/2022 Refill [facility] MEDICINE [address] [place], [place] [phone] Alma Rosa Preciado MD [address] [place] [address] Seborrheic dermatitis (Primary Dx) Social History Tobacco [...] Description 07/06/2025 2:00 PM EDT Office Visit [facility] ADULT DENTAL [address] [place], [place] [phone] Sanchez Preciado 07/08/2025 1:00 PM EDT Office Visit [facility] ADULT DENTAL [address] [place], [place] [phone] Shaq Turcios DMD [address] [place] [address] 07/09/2025 9:45 AM EDT Office Visit [facility] CHC MED & PEDS [address] [place] [address] Alma Rosa Preciado MD [address] [place] [address] documented as of this encounter Visit Diagnoses Diagnosis Seborrheic dermatitis- Primary Unspecified seborrheic dermatitis documented in this encounter Care Teams Rest Room Maid Relationship Specialty Start Date End Date Alma Rosa Preciado MD [address] [place] [address] PCP - General Internal Medicine 10/22/18 documented as of this encounter
--- OUTSIDE RECORDS SUMMARY | 2025-06-18 16:28 | XMS_ITS | Encounter Summary ---
Author Organization [employer] Address [address] [place] [address] 7t [place] [address] Care Team Providers Care Dirt Bike Mechanic Name Role Phone Alma Rosa Preciado MD Primary Care Provider [phone] Encounter Details Date Type Department Care Team (Late st Contact Info) Description 06/18/2025 Orders Only GENERIC EXTERNAL DATA DEPARTMENT Provider, Generic External Data Social History Tobacco Use Types Packs/Day Years Used Date Smoking Tobacco: Never Smokeless Tobacco: Never Depression Answer Date Recorded Patient Health Questionnaire-9 [...] Description 07/06/2025 2:00 PM EDT Office Visit [facility] ADULT DENTAL [address] [place] [address] Sanchez Preciado 07/08/2025 1:00 PM EDT Office Visit [facility] ADULT DENTAL [address] [place] [address] Shaq Turcios DMD [address] [place] [address] 07/09/2025 9:45 AM EDT Office Visit [facility] MED & PEDS [address] [place] [address] Alma Rosa Preciado MD [address] [place], [place] [phone] documented as of this encounter Procedures Procedure Name Priority Date/Time Associated Diagnosis Comments CBC WITH AUTO DIFFERENTIAL Routine 06/18/2025 12:46 PM EDT MAGNESIUM Routine 06/18/2025 12:46 PM EDT HEPATIC FUNCTION PANEL Routine 06/18/2025 12:46 PM EDT BASIC METABOLIC PANEL Routine 06/18/2025 12:46 PM EDT XR FOOT 3+ VIEWS LEFT Routine 06/18/2025 11:54 AM EDT documented in this encounter Results * Magnesium (06/18/2025 12:46 PM EDT) Magnesium 2.5 1.6 - 2.6 mg/dL [facility] 06/18/2025 12:4 6 PM EDT 06/18/2025 12:49 PM EDT us Generic External Data Provider LAB BLOOD ORDERAB LES Final Result Performing Organization Address City/[facility]/ZIP Co de Phone Number [facility] [address] [place] [address] [phone] * (ABNORMAL) Basic Metabolic Panel (06/18/2025 12:46 PM EDT) Sodium 139 135 - 145 mmol/L [facility] Potassium 4.5 3.3 - 5.1 mmol/L [facility] Chloride 107 96 - 108 mmol/L [facility] Carbon Dioxide 26 22 - 29 mmol/L [facility] Anion Gap 11(L) 12 - 20 [facility] Urea Nitrogen (BUN) 30(H) 9 - 16 mg/dL [facility] Creatinine, Serum 1.81(H) 0.5 - 1.4 mg/dL [facility] Creatinine Clr Calc Pharmacy 56.5 [facility] Comment:eGFR (calculated fro m the MDRD study equation) and eCrCl(calculated from the Cockcroft-Gault equation) are based ondifferent parameters and may not yield comparable results.If eCrCl result is absurd, please check patient'sheight/weight. Estimated Glomerular Filt Rate 39 [facility] Comment:Chronic Kidney Disea se: Estimated GFR < 60 mL/min/1.77t6Lytuhv Kidney Disease: Estimated GFR < 15 mL/min/1.73m2 Glucose 177(H) 60 - 115 mg/dL [facility] Calcium 8.6 8.4 - 10.2 mg/dL [facility] 06/18/2025 12:4 6 PM EDT 06/18/2025 12:49 PM EDT us Generic External Data Provider LAB BLOOD ORDERAB LES Final Result Performing Organization Address City/[facility]/ZIP Co de Phone Number [facility] [address] [place] [address] [phone] * Hepatic Function Panel (06/18/2025 12:46 PM EDT) [facility] Bilirubin, Total 0.3 0.0 - 1.0 mg/dL [facility] Bilirubin, Direct 0.1 0.0 - 0.5 mg/dL [facility] Aspartate Amino Transferase 23 5 - 37 U/L [facility] Alanine Aminotransferase 27 0 - 40 U/L [facility] Total Protein 7.0 6.5 - 8.0 g/dL [facility] Albumin Level 4.1 3.5 - 5.0 g/dL [facility] Alkaline Phosphatase 76 39 - 117 U/L [facility] 06/18/2025 12:4 6 PM EDT 06/18/2025 12:49 PM EDT Generic External Data Provider LAB BLOOD ORDERAB LES Final Result [facility] [address] [place] [address] [phone] * (ABNORMAL) CBC auto differential (06/18/2025 12:46 PM EDT) [facility] White Blood Count 7.5 4.8 - 10.8 X10*3/uL [facility] Red Blood Count 4.12(L) 4.60 - 5.80 X10*6/uL [facility] Hemoglobin 12.0(L) 14.0 - 18.0 g/dl [facility] Hematocrit 36.1(L) 42.0 - 52.0 % [facility] Mean Corpuscular Volume 87.6 80.0 - 98.0 fL [facility] Mean Corpuscular Hemoglobin 29.1 27.0 - 33.0 pg [facility] Mean Corpuscular HGB Conc 33.2 31.0 - 36.0 g/dl [facility] Red Cell Distribution Width 13.2 11.0 - 16.0 % [facility] Platelet Count 218 160 - 400 X10*3/uL [facility] Mean Platelet Volume 9.4 9.4 - 12.4 fL [facility] Neutrophils Percent Auto 65.3 45 - 73 % [facility] Imm Gran Pct Auto 0.4 0.0 - 0.4 % [facility] Lymphocytes Percent Auto 19.8(L) 20 - 40 % [facility] Monocytes Percent Auto 8.1 2 - 11 % [facility] Eosinophils Percent Auto 5.7(H) 0 - 4 % [facility] Basophils Percent Auto 0.7 0 - 2 % [facility] NRBC Pct Auto 0.0 0.0 - 0.2 /100WBC [facility] Neutrophils Absolute Auto 4.9 2.0 - 8.3 x10*3/uL [facility] Imm Gran Abs Auto 0.03 0.00 - 0.03 X10*3/uL [facility] Lymphocytes Absolute Auto 1.5 1.2 - 4.9 X10*3/uL [facility] Monocytes Absolute Auto 0.6 0.1 - 1.2 X10*3/uL [facility] Eosinophils Absolute Auto 0.4 0.0 - 0.4 X10*3/uL [facility] Basophils Absolute Auto 0.1 0.0 - 0.2 X10*3/uL [facility] NRBC Abs Auto 0.000 0.0 - 0.012 X10*3/uL [facility] 06/18/2025 12:4 6 PM EDT 06/18/2025 12:49 PM EDT us Generic External Data Provider LAB BLOOD ORDERAB LES Final Result [facility] [address] [place] [phone] * XR Foot 3+ Views Left (06/18/2025 11:54 AM EDT) Anatomical Region Laterality Modality Lower Extremities, Foot Left Radiogra phic Imaging 06/18/2025 11:5 4 AM EDT Narrative 06/18/2025 1:05 PM EDT [address] [address] XRay Report Signed Patient: Caleb Arias MR#: [id number] 8 : 1970 Acct:[id number] Age/Sex: 54 / M ADM Date: 06/18/25 Loc: HO.ED Attending Dr: Ordering Physician: Iveth Galindo Date of Service: 06/18/25 Procedure(s): XR foot LT min 3V Accession Number(s): [id number] cc: Alma Rosa Preciado MD; Iveth Galindo [...] 06/18/25 1303 DD/ 1154 TD/TT: 06/18/25 1253 Digital Strategy Manager: Procedure Note Donotuseinterpreter, Image - 06/18/[address] [address] XRay Report Signed Patient: Caleb Arias JMR#: [id number] 8 : 1970Acct:[id number] Age/Sex: 54 / MADM Date: 06/18/25 Loc: HO.ED Attending Dr: Ordering Physician: Iveth Galindo Date of Service: 06/18/25 Procedure(s): XR foot LT min 3V Accession Number(s): [id number] cc: Alma Rosa Preciado MD; Iveth Galindo [...] 01:03 PM EDT Dictated By: Bernard De nAda MD Signed By: <Electronically signed by Bernard De Anda MD in OV> 06/18/25 1303 DD/ 1154 TD/TT: 06/18/25 1253 Digital Strategy Manager: [facility] External Provider IMG XR PROCEDURES Final Result documented in this encounter Visit Diagnoses Not on filedocumented in this encounter Additional Health Concerns Assessment Noted Time PHQ-9 Depression Total Score: 7 06/11/20 1:35 PM EDT documented as of this encounter Care Teams Dirt Bike Mechanic Relationship Specialty Start Date End Date Alma Rosa Preciado MD [address] [place] [address] PCP - General Internal Medicine 10/22/18 documented as of this encounter
--- OUTSIDE RECORDS SUMMARY | 2025-06-18 16:28 | XMS_ITS | Encounter Summary ---
Author Organization [employer] Address [address] [place] [address] [place] [address] Care Team Providers Care Rn Navigator Name Role Phone Alma Rosa Preciado MD Primary Care Provider [phone] Encounter Details Date Type Department Care Team (Late st Contact Info) Description 06/27/2023 [facility] Information Management [address] [place] [address] Alma Rosa Preciado MD [address] [place] [address] Social History Tobacco Use Types Packs/Day Years [...] Description 07/06/2025 2:00 PM EDT Office Visit [facility] ADULT DENTAL [address] [place] [address] Sanchez Preciado 07/08/2025 1:00 PM EDT Office Visit [facility] ADULT DENTAL [address] [place] [address] Shaq Turcios DMD [address] [place] [address] 07/09/2025 9:45 AM EDT Office Visit [facility] MED & PEDS [address] [place] [address] Alma Rosa Preciado MD [address] [place] [address] documented as of this encounter Visit Diagnoses Not on filedocumented in this encounter Care Teams Rn Navigator Relationship Specialty Start Date End Date Alma Rosa Preciado MD [address] [place] [address] PCP - General Internal Medicine 10/22/18 documented as of this encounter
--- OUTSIDE RECORDS SUMMARY | 2025-06-18 16:28 | XMS_ITS | Encounter Summary ---
Author Organization [employer] Address [address] [place] [address] [place] [address] Care Team Providers Care Rn Cvicu Name Role Phone Alma Rosa Preciado MD Primary Care Provider [phone] Encounter Details Date Type Department Care Team (Late st Contact Info) Description 02/22/2023 Orders Only [facility] & PEDS [address] [place] [address] Nina Reyes LPN Social History Tobacco Use [...] 07/06/2025 2:00 PM EDT Office Visit [facility] AD[facility] [address] [place] [address] Sanchez Preciado 07/08/2025 1:00 PM EDT Office Visit [facility] AD[facility] [address] [place] [address] Shaq Turcios DMD [address] [place] [address] 07/09/2025 9:45 AM EDT Office Visit [facility] PED[facility] [address] [place] [address] Alma Rosa Preciado MD [address] [place] [address] documented as of this encounter Visit Diagnoses Not on filedocumented in this encounter Care Teams Rn Cvicu Relationship Specialty Start Date End Date Alma Rosa Preciado MD [address] [facility] [place] [address] PCP - General Internal Medicine 10/22/18 documented as of this encounter
--- OUTSIDE RECORDS SUMMARY | 2025-06-18 16:28 | XMS_ITS | Encounter Summary ---
Author Organization [employer] Address [address] [place] [address] Care Team Providers Care Mop Man Name Role Phone Alma Rosa Preciado MD Primary Care Provider [phone] Encounter Details Date Type Department Care Team (Latest Contact Info) Description 04/19/2022 Abstract [facility] CONVERSIONS Dental, Provider, DDS Social History Tobacco [...] Care Team ( st Contact Info) Description 07/06/2025 2:00 PM EDT Office Visit [facility] ADULT DENTAL [address] [place] [address] Sanchez Preciado 07/08/2025 1:00 PM EDT Office Visit [facility] ADULT DENTAL [address] [place] [address] Shaq Turcios DMD [address] [place] [address] 07/09/2025 9:45 AM EDT Office Visit [facility] MED & PEDS [address] [place] [address] Alma Rosa Preciado MD [address] [place] [address] documented as of this encounter Visit Diagnoses Not on filedocumented in this encounter Care Teams Mop Man Relationship Specialty Start Date End Date Alma Rosa Preciado MD [address] [place] [address] PCP - General Internal Medicine 10/22/18 documented as of this encounter
--- OUTSIDE RECORDS SUMMARY | 2025-06-18 16:28 | XMS_ITS | Encounter Summary ---
Author Organization [employer] Address [address] [place] [address] 7 [place] [address] Care Team Providers Care Director Graphics Name Role Phone Alma Rosa Preciado MD Primary Care Provider [phone] Reason for Visit * Reason Comments Med Refill Encounter Details Date Type Department Care Team (Late Contact Info) Description 10/30/2022 Refill [facility] MEDICINE [address] [place], [place] [phone] Alma Rosa Preciado MD [address] [place] [address] Type 2 diabetes mellitus with diabetic peripheral angiopathy without gangrene, with long-term current use of insulin ([facility]) (Primary Dx) Social History Tobacco Use Types [...] [facility] [address] [place], [place] [phone] Sanchez Preciado 07/08/2025 1:00 PM EDT Office Visit [facility] CHC ADULT DENTAL [address] [place], [place] [phone] Shaq Turcios DMD [address] [place], [place] [phone] 07/09/2025 9:45 AM EDT Office Visit [facility] CHC MED & PEDS [address] [place], [place] [phone] Alma Rosa Preciado MD [address] [place] [address] documented as of this encounter Visit Diagnoses Diagnosis Type 2 diabetes mellitus with diabetic peripheral angiopathy without gangrene, with long-term current use of insulin ([facility])- Primary documented in this encounter Care Teams Director Graphics Relationship Specialty Start Date End Date Alma Rosa Preciado MD [address] [place] [address] PCP - General Internal Medicine 10/22/18 documented as of this encounter
--- OUTSIDE RECORDS SUMMARY | 2025-06-18 16:28 | XMS_ITS | Encounter Summary ---
Author Organization [facility] Address [address] [facility] [address] [place] [address] Phone Care Team Providers Care Senior Instructional Designer Name Role Phone Alma Rosa Preciado MD Primary Care Pr ovider Encounter Details Date Type Department Care Team (Late st Contact Info) Description 05/31/2023 Procedure [facility] [address] [place] [address] Social History Tobacco Use Types Packs/Day Years [...] on filedocumented in this encounter Care Teams Senior Instructional Designer Relationship Specialty Start Date End Date Alma Rosa Preciado MD PCP - General Internal Medicine 05/21/23 documented as of this encounter Additional Source Comments The information contained in this document represents components of the legal health record. It is not the complete legal health record.[facility]
--- OUTSIDE RECORDS SUMMARY | 2025-06-18 16:28 | XMS_ITS | Encounter Summary ---
Author Organization [facility] Address [address] [facility] [address] [place] [address] Phone Care Team Providers Care Dancer Or Choreographer Name Role Phone Alma Rosa Preciado MD Primary Care Pr ovider Encounter Details Date Type Department Care Team ([facility] st Contact Info) Description 05/22/2023 Prep for Surgery [facility] Podiatry [address] [place] [address] Destini Huddleston DPM [address] [facility] [address] [place] [address] [email or web address] Diabetic foot infection (Primary Dx); Type 2 diabetes mellitus with diabetic neuropathy, without long-term current use of insulin Social History Tobacco Use Types Packs/Day Years [...] as of this encounter Visit Diagnoses Diagnosis Diabetic foot infection- Primary Type 2 diabetes mellitus with diabetic neuropathy, without long-term current use of insulin documented in this encounter Care Teams Dancer Or Choreographer Relationship Specialty Start Date End Date Alma Rosa Preciado MD PCP - General Internal Medicine 05/21/23 documented as of this encounter Additional Source Comments The information contained in this document represents components of the legal health record. It is not the complete legal health record.[facility]
--- OUTSIDE RECORDS SUMMARY | 2025-06-18 16:28 | XMS_ITS | Encounter Summary ---
Author Organization [facility] Address [address] [facility] [address] [place] [address] Phone Care Team Providers Care Pilot Plant Technician Name Role Phone Alma Rosa Preciado MD Primary Care Pr ovider Encounter Details Date Type Department Care Team (Late st Contact Info) Description 05/21/2023 Procedure Pass [facility] [address] [place] [address] Social History Tobacco Use Types Packs/Day Years [...] PM EDT documented as of this encounter Functional Status * Calculated C-SSRS Risk Score (Lifetime/Recent) Answer Date of Assessment Author No Risk Indicated 05/21/2023 4:40 PM EDT Isa Alcala RN * [place] Suicide Severity Rating Scale (Screener/Recent Self-Report) Question Answer Date of Assessment Author 1. Wish to be (Past 1 Month) No 023 4:40 PM EDT Isa Alcala RN 2. Non-Specific Active Suici veto Thoughts (Past 1 Month) No 05/21/2023 4:40 PM EDT Isa Alcala RN 6. Suicidal Behavior (Lifetime) No 3 4:40 PM EDT Isa Alcala RN documented as of this encounter Plan of Treatment Not on file documented as of this encounter Visit Diagnoses Not on filedocumented in this encounter Care Teams Pilot Plant Technician Relationship Specialty Start Date End Date Alma Rosa Preciado MD PCP - General Internal Medicine 05/21/23 documented as of this encounter Additional Source Comments The information contained in this document represents components of the legal health record. It is not the complete legal health record.[facility]
--- OUTSIDE RECORDS SUMMARY | 2025-06-18 16:28 | XMS_ITS | Encounter Summary ---
Author Organization [employer] Address [address] [place] [address] 7 [place] [address] Care Team Providers Care Typewriters Functional Tester Name Role Phone Alma Rosa Preciado MD Primary Care Provider [phone] Reason for Visit * Reason Onset Date Comments Prior Authorization 03/24/2025 Encounter Details Date Type Department Care Team ([facility] Contact Info) Description 03/24/2025 Telephone [facility] CHC MED & PEDS [address] [place] [address] Alma Rosa Preciado MD [address] [place] [address] Prior Authorization Social History Tobacco Use Types Packs/Day Years [...] encounter Miscellaneous Notes * Telephone Encounter - Michaela Lara LPN - 03/24/2025 11:42 AM EDT Pa required for Invokana 100 MG tablet if Changed to Jardiance n pa required. Also Metformin 500 OSM requires PA needs to be changed to ER both medication are queued if you wish to Continue documented in this encounter Plan of Treatment Upcoming Encounters Date Type Department Care Team (Late st Contact Info) Description 07/06/2025 2:00 PM EDT Office Visit [facility] ADULT DENTAL [address] [place] [address] Sanchez Preciado 07/08/2025 1:00 PM EDT Office Visit [facility] ADULT DENTAL [address] [place] [address] Shaq Turcios DMD [address] [place] [address] 07/09/2025 9:45 AM EDT Office Visit [facility] MED & PEDS [address] [place] [address] Alma Rosa Preciado MD [address] [place] [address] documented as of this encounter Visit Diagnoses Not on filedocumented in this encounter Care Teams Typewriters Functional Tester Relationship Specialty Start Date End Date Alma Rosa Preciado MD [address] [place] [address] PCP - General Internal Medicine 10/22/18 documented as of this encounter
--- OUTSIDE RECORDS SUMMARY | 2025-06-18 16:28 | XMS_ITS | Encounter Summary ---
Author Organization [employer] Address [address] [place] [address] 7 [place] [address] Care Team Providers Care Putter In Name Role Phone Alma Rosa Preciado MD Primary Care Provider [phone] Encounter Details Date Type Department Care Team ([facility] Contact Info) Description 09/24/2024 Orders Only [facility] CHC MED & PEDS [address] [place] [address] Alma Rosa Preciado MD [address] [place] [address] Social History Tobacco Use Types Packs/Day Years [...] [facility] [address] [place] [address] Sanchez Preciado 07/08/2025 1:00 PM EDT Office Visit [facility] [address] [place] [address] Shaq Turcios DMD [address] [place] [address] 07/09/2025 9:45 AM EDT Office Visit [facility] [address] [place] [address] Alma Rosa Preciado MD [address] [place] [address] documented as of this encounter Visit Diagnoses Not on filedocumented in this encounter Care Teams Putter In Relationship Specialty Start Date End Date Alma Rosa Preciado MD [address] [place] [address] PCP - General Internal Medicine 10/22/18 documented as of this encounter
--- OUTSIDE RECORDS SUMMARY | 2025-06-18 16:28 | XMS_ITS | Encounter Summary ---
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 (CMS/HCC) Type 2 diabetes mellitus with hyperglycemia, with long-term current use of insulin (CMS/HCC) Alma Rosa Preciado MD [address] [place] [address] Phone: tel: fax: Clayton Cornelius DPM Phone: tel: fax: Referral ID Status Reason Start Date Expiration Date V isits Requested Visits Authorized [id number] Closed Specialty Services Required 12/17/2023 12/16/2024 1 1 Encounter Details Date Type Department Care Team (Late st Contact Info) Description 12/17/2023 Orders Only [facility] MED & PEDS [address] [place] [address] Alma Rosa Preciado MD [address] [place] [address] Acute osteomyelitis of phalanx of left foot [...] Description 07/06/2025 2:00 PM EDT Office Visit [facility] ADULT DENTAL [address] [place] [address] Sanchez Preciado 07/08/2025 1:00 PM EDT Office Visit [facility] ADULT DENTAL [address] [place] [address] Shaq Turcios DMD [address] [place] [address] 07/09/2025 9:45 AM EDT Office Visit [facility] MED & PEDS [address] [place] [address] Alma Rosa Preciado MD [address] [place] [address] Scheduled Referrals Name Type Priority Associated Diagnoses Orde r Schedule Referral to Podiatry Outpatient Referral Routine Acute osteomyelitis of phalanx of left foot ([facility]) Type 2 diabetes mellitus with hyperglycemia, with long-term current use of insulin ([facility]) Expected: 12/17/2023 (Approximate), Expires: 12/17/2024 documented as [...] AM EDT Narrative 01/22/2024 11:53 AM EDT [facility] [address] [place] [address] XRay Report Signed Patient: Caleb Arias MR#: [id number] 8 : 1970 Acct:[id number] Age/Sex: 53 / M ADM Date: 01/11/24 Loc: HO.[facility] Attending Dr: Daphnie Sanchez MD Ordering Physician: Daphnie Sanchez MD Date of Service: 01/11/24 Procedure(s): XR foot LT min 3V Accession Number(s): [id number] cc: Alma Rosa Preciado MD; Daphnie Sanchez [...] in OV> 01/22/24 1148 DD/ 1047 TD/TT: Scraper Hand: Procedure Note Donotuseinterpreter, Image - 01/22/2024 [facility] [address] [place] [address] XRay Report Signed Patient: Caleb Arias JMR#: [id number] 8 : 1970Acct:[id number] Age/Sex: 53 / MADM Date: 01/11/24 Loc: .[facility] Attending Dr: Daphnie Sanchez MD Ordering Physician: Daphnie Sanchez MD Date of Service: 01/11/24 Procedure(s): XR foot LT min 3V Accession Number(s): [id number] cc: Alma Rosa Preciado MD; Daphnie Sanchez [...] in OV> 01/22/24 1148 DD/ 1047 TD/TT: Scraper Hand: [facility] External Provider IMG XR PROCEDURES Final Result documented in this encounter Visit Diagnoses Diagnosis 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
--- OUTSIDE RECORDS SUMMARY | 2025-06-18 16:28 | XMS_ITS | Encounter Summary ---
Author Organization [employer] Address [address] [place] [address] [place] [address] Care Team Providers Care Perforator Loader Name Role Phone Alma Rosa Preciado MD Primary Care Provider [phone]- [phone] Encounter Details Date Type Department Care Team (Late st Contact Info) Description 11/02/2022 Orders Only [facility] MED & PEDS [address] [place] [address] Pearl Galdamez LPN Social History Tobacco Use [...] 2:00 PM EDT Office Visit [facility] ADULT DENTAL [address] [place] [address] Sanchez Preciado 07/08/2025 1:00 PM EDT Office Visit [facility] ADULT DENTAL [address] [place] [address] Shaq Turcios DMD [address] [place] [address] 07/09/2025 9:45 AM EDT Office Visit [facility] MED & PEDS [address] [place] [address] Alma Rosa Preciado MD [address] [place] [address] documented as of this encounter Visit Diagnoses Not on filedocumented in this encounter Care Teams Perforator Loader Relationship Specialty Start Date End Date Alma Rosa Preciado MD 505 [place] [address] PCP - General Internal Medicine 10/22/18 documented as of this encounter
--- OUTSIDE RECORDS SUMMARY | 2025-06-18 16:28 | XMS_ITS | Encounter Summary ---
Author Organization [employer] Address [address] [place] [address] Care Team Providers Care Bus Person Name Role Phone Alma Rosa Preciado MD Primary Care Provider [phone]- [phone] Reason for Visit * Reason Onset Date Comments Nurse Triage 07/09/2023 Encounter Details Date Type Department Care Team (Late st Contact Info) Description 07/09/2023 Telephone [facility] CHC MED & PEDS [address] [place] [address] Alma Rosa Preciado MD [address] [place] [address] Nurse Triage Social History Tobacco Use Types [...] accepted this outcome Please contact pt at [phone] documented in this encounter Plan of Treatment Upcoming Encounters Date Type Department Care Team (Late st Contact Info) Description 07/06/2025 2:00 PM EDT Office Visit [facility] ADULT DENTAL [address] [place] [address] Sanchez Preciado 07/08/2025 1:00 PM EDT Office Visit [facility] ADULT DENTAL [address] [place] [address] Shaq Turcios DMD [address] [place] [address] 07/09/2025 9:45 AM EDT Office Visit [facility] MED & PEDS [address] [place] [address] Alma Rosa Preciado MD [address] [place] [address] documented as of this encounter Visit Diagnoses Not on filedocumented in this encounter Care Teams Bus Person Relationship Specialty Start Date End Date Alma Rosa Preciado MD [address] [place] [address] PCP - General Internal Medicine 10/22/18 documented as of this encounter
--- OUTSIDE RECORDS SUMMARY | 2025-06-18 16:28 | XMS_ITS | Encounter Summary ---
Author Organization [employer] Address [address] [place] [address] [place] [address] Care Team Providers Care Drapery Inspector Name Role Phone Alma Rosa Preciado MD Primary Care Provider [phone] Reason for Visit * Reason Onset Date Comments Other 06/28/2023 Encounter Details Date Type Department Care Team (Late Contact Info) Description 06/28/2023 Telephone [facility] MED & PEDS [address] [place] [address] Alma Rosa Preciado MD [address] [place] [address] Other Social History Tobacco Use Types Packs/Day [...] EDT Tc from [facility] at [facility] requesting a new script for a glucose meter, test strips and lancets. documented in this encounter Plan of Treatment Upcoming Encounters Date Type Department Care Team (Late Contact Info) Description 07/06/2025 2:00 PM EDT Office Visit [facility] ADULT DENTAL [address] [place] [address] Sanchez Preciado 07/08/2025 1:00 PM EDT Office Visit [facility] ADULT DENTAL [address] [place] [address] Shaq Turcios DMD [address] [place] [address] 07/09/2025 9:45 AM EDT Office Visit [facility] MED & PEDS [address] [place] [address] Alma Rosa Preciado MD [address] [place] [address] documented as of this encounter Visit Diagnoses Not on filedocumented in this encounter Care Teams Drapery Inspector Relationship Specialty Start Date End Date Alma Rosa Preciado MD [address] [place] [address] PCP - General Internal Medicine 10/22/18 documented as of this encounter
--- OUTSIDE RECORDS SUMMARY | 2025-06-18 16:28 | XMS_ITS | Clinical Summary ---
Author Organization [facility] Address [address] [facility] [address] [place] [address] Phone Care Team Providers Care Leather Carver Name Role Phone Alma Rosa Preciado MD Primary Care Pr ovider Allergies Active Allergy Reactions Criticality Noted Date Comments Shellfish Containing Products Itching Medium 2015 Piperacillin-Tazobactam Hives,Itching Medium 3 Medications omeprazole (PRILOSEC) 20 MG capsule TAKE ONE CAPSULE DAILY BEFORE BREAKFAST 2 Active amLODIPine (NORVASC) 5 MG tablet Take 1 tablet by mouth daily. 2 Active INVOKAMET XR 50-500 mg TBph TAKE TWO TABLET BY MOUTH EVERY MORNING WITH FOOD 3 Active simvastatin (ZOCOR) 20 MG tablet Take 1 tablet by mouth nightly at bedtime. 2 Active valsartan-hydro CHLOROthiazide (DIOVAN-HCT) 320-25 mg per tablet Take 1 tablet by mouth every morning. 3 Active cefpodoxime (VANTIN) 200 MG tablet [The details of the medication are not available because there are pending changes by a home health clinician.] 4 tablet 3 Active Additional Information Patient not taking.Reason: Patient Declined, Informant: Self, Reported on 06/06/2023 glipiZIDE (GLUCOTROL) 5 MG tablet Take 5 mg by mouth 2 (two) times a day before meals. pt reports taking as needed Active Active Problems Problem Noted Date Diagnosed Date Achilles rupture, right, sequela 08/30/2023 Status post amputation of toe of left foot 06/28 Nausea & vomiting 05/25/2023 Assessment & Plan (05/30/2023 1:14 AM EDT): - seems improving Diabetic foot infection 05/21/2023 Assessment & Plan (05/30/2023 1:14 AM EDT): -Patient presented with several weeks of worsening left toe infection -X-ray showsed subcutaneous gas and swelling of the left great toe -MRI foot showed infection and osteo -went to the OR 05/24 - abx were cefepime, vancomycin, metronidazole - now cefepime Dr. Horne reviewed the available pathology, operative note and imaging and and concluded that it appeared all the infected bone was removed with a clean margin - He recommended cefpodoxime 200 mg p.o. twice daily to complete a 7-day course of post-operative antibiotics (on 05/31/2023). - reviewed DR. Huddleston note from 05/24, indicated patient could be discharged and follow with her, called office to confirm 05/31 apt -Weightbearing touchdown recommended by podiatry, using crutches - cont wound care as per wound nurse - patient needs VNA and more instructions for wound care until apt Type 2 diabetes mellitus wit h diabetic neuropathy, without long-term current use of insulin 05/21/2023 Assessment & Plan (05/30/2023 1:16 AM EDT): - invokamet nonformulary - increase insulin - hba1c 8 HTN (hypertension) 05/21/2023 Assessment & Plan (05/30/2023 1:17 AM EDT): - cont amlodipine 5 mg daily and valsartan 320 mg daily (GAGE resolved) - HCTZ held Resolved Problems Problem Noted Date Diagnosed Date Resolved Date GAGE (acute kidney injury) 05/21/2023 Family History Medical History Relation Comments Heart failure Father Heart failure Mother Relation Status Comments Father Mother Social History Tobacco Use Types Packs/Day Years Used Date Smoking Tobacco: Never Smokeless Tobacco: Never Tobacco Cessation:Counseling Given: Not Answered Alcohol Use Standard Drinks/Week Comments Yes 0 (1 standard drink = 0.6 oz pur e alcohol) Home Health Assessment: Transportation Answer Date Recorded Lack of Transportation (Medical) No 07/31/2023 Lack of Transportation (Non-Medical) No 07/31/2023 Patient Unable or Declines to Respond No 07/31/2023 Education Answer Date Recorded Are you interested [...] Orientation Straight 06/28/2023 10 :30 PM EDT Last Filed Vital Signs Vital Sign Reading Time Taken Comments Blood Pressure 120/70 07/31/2023 10:15 AM EDT Pulse 86 07/31/2023 10:15 AM EDT Temperature 36.5 C (97.7 F) 07/31/2023 10:15 AM EDT Respiratory Rate 14 07/31/2023 10:15 AM EDT Oxygen Saturation 98% 07/31/2023 10:15 AM EDT Inhaled Oxygen Concentration - - Weight 90.7 kg (200 lb) 10/30/2023 10:13 AM EST Height 182.9 cm (6') 10/30/2023 10:13 AM EST Body Mass Index 27.12 10/30/2023 10:13 AM EST Plan of Treatment Health Maintenance Due Date Last Done Comments DEPRESSION SCREENING 1983 HEPATITIS C SCREENING 1989 HIV ONE-TIME SCREENING (18-65 YEARS) 1989 COLOGUARD 2016 COLONOSCOPY 2016 COLORECTAL CANCER SCREENING 2016 FIT TEST 2016 FOBT 2016 SIGMOIDOSCOPY 2016 VIRTUAL COLONOSCOPY 2016 ZOSTER VACCINES (1 of 2) 2021 PNEUMOCOCCAL VACCINES (50+ years) (2 of 2 - PCV) 12/01/2021 12/01/2020 DIABETIC EYE EXAM 05/21/2023 HEMOGLOBIN A1C 12/13/2023 06/12/2023, 08/0 12/2022, 05/22/2023, Additional history exists BLOOD PRESSURE 01/30/2024 07/31/2023 CREATININE LEVEL 05/29/2024 05/29/2023, 04/2023, 05/26/2023, Additional history exists POTASSIUM LEVEL 05/29/2024 05/29/2023, 08/0 04/2023, 05/26/2023, Additional history exists COVID-19 VACCINE ( season) 2024 INFLUENZA VACCINE (#1) 2025 Adult Td,Tdap Booster 11/15/2025 11/15/2015 SMOKING STATUS SCREENING (Once After 26 Yrs) Completed 08/16/2023 HEPATITIS A VACCINES Aged Out No long er eligible based on patient's age to complete this topic HIB VACCINES Aged Out No longer eligi ble based on patient's age to complete this topic MENINGOCOCCAL VACCINES (ACWY) Aged Out No longer eligible based on patient's age to complete this topic MENINGOCOCCAL VACCINES (B) Aged Out N o longer eligible based on patient's age to complete this topic Medical Devices Not on file Procedures Procedure Name Priority Date/Time Associated Diagnosis Comments BASIC METABOLIC PANEL Routine 05/29/2023 6:25 AM EDT HEMOGLOBIN A1C Routine 05/24/2023 6:12 AM EDT from Last 3 Months or Most Recently Relevant to Health Maintenance Results * (ABNORMAL) Basic metabolic panel (05/29/2023 6:25 AM EDT) SODIUM 135 133 - 146 mmol/L [facility] CHLORIDE 101 96 - 108 mmol/L [facility] POTASSIUM 4.1 3.3 - 5.1 mmol/L [facility] CO2 26 21 - 35 mmol/L [facility] BUN 12 6 - 19 mg/dL [facility] CREATININE 1.00 0.5 - 1.5 mg/dL [facility] GLUCOSE 173(H) 70 - 99 mg/dL [facility] CALCIUM 8.3(L) 8.4 - 10.3 mg/dL [facility] EGFR 91 >59 mL/min/1.7 3m2 [facility] Comment:Estimated glomerular filtration rate calculated using the CKD-EPI refit equation. ANION GAP 12 10 - 20 mmol/L [facility] Blood 05/29/2023 6:25 AM EDT 05/29/2023 6:47 AM EDT us Wendy Lin MD LAB BLOOD ORDERABLES Final Result [address] [address] * (ABNORMAL) Hemoglobin A1c (05/24/2023 6:12 AM EDT) HEMOGLOBIN A1C 8.0(H) 4.3 - 5.8 % [facility] Blood 05/24/2023 6:12 AM EDT 05/24/2023 6:32 AM EDT us Roxanne Covington MD LAB BLOOD ORDERABLES Yoana l Result [address] [address] from Last 3 Months or Most Recently Relevant to Health Maintenance Insurance [facility] [place] [address] [facility] [place] [place] [address] [facility] [employer] Advance Directives For more information, please contact: [phone] (9AM - 5PM [facility], Sunday-Sunday) Documents on File Type Date Recorded Patient Inspector Soldering Expl anation Healthcare Proxy 05/31/2023 12:48 PM * Full Code (Latest Code Status on File) Date Activated Date Inactivated Comments 05/21/2023 10:09 PM Question Answer Comments Code Status Confirmed With: Patient Care Teams Leather Carver Relationship Specialty Start Date End Date Alma Rosa Preciado MD PCP - General Internal Medicine 05/21/23 Additional Source Comments The information contained in this document represents components of the legal health record. It is not the complete legal health record.[facility]
--- OUTSIDE RECORDS SUMMARY | 2025-06-18 16:28 | XMS_ITS | Encounter Summary ---
Author Organization [employer] Address [address] [facility] [address] [place] [address] Care Team Providers Care Mingler Operator Name Role Phone Alma Rosa Preciado MD Primary Care Provider +[phone] Encounter Details Date Type Department Care Team ([facility] st Contact Info) Description 01/16/2024 Telephone [facility] MEDICINE [address] [place] [address] Alma Rosa Preciado MD [address] [place], [place] [id number] Social History Tobacco Use Types Packs/Day Years [...] - 01/16/2024 2:30 PM EDT Tc from [facility] with [place] department of transitional assistance calling in regards to a medical providers statement that was faxed over but demi stated it was dated 02/14 instead of 01/14. Demi is requesting a refax. If any questions please contact Demi at [phone]. documented in this encounter Plan of Treatment Upcoming Encounters Date Type Department Care Team (Late st Contact Info) Description 07/06/2025 2:00 PM EDT Office Visit [facility] ADULT DENTAL [address] [place] [address] Sanchez Preciado 07/08/2025 1:00 PM EDT Office Visit [facility] ADULT DENTAL [address] [place] [address] Shaq Turcios DMD [address] [place] [address] 07/09/2025 9:45 AM EDT Office Visit [facility] MED & PEDS [address] [place] [address] Alma Rosa Preciado MD [address] [place] [address] documented as of this encounter Visit Diagnoses Not on filedocumented in this encounter Care Teams Mingler Operator Relationship Specialty Start Date End Date Alma Rosa Preciado MD [address] [place] [address] PCP - General Internal Medicine 10/22/18 documented as of this encounter
--- OUTSIDE RECORDS SUMMARY | 2025-06-18 16:28 | XMS_ITS | Encounter Summary ---
Author Organization [employer] Address [address] [place] [address] Care Team Providers Care Apron Man Name Role Phone Alma Rosa Preciado MD Primary Care Provider [phone]- [phone] Reason for Referral * Imaging (Routine) - Closed Specialty Diagnoses / Procedures Referred By Contmiguelina t Referred To Contact Radiology Diagnoses Wound of left foot Procedures MR Foot w and w/o Contrast Left Alma Rosa Preciado MD [address] [place] [address] Phone: tel: fax: [address] Phone: tel: fax: Referral ID Status Reason Start Date Expiration Date Visits Re quested Visits Authorized [id number] Closed 02/08/2024 02/07/2025 1 1 Encounter Details Date Type Department Care Team ([facility] st Contact Info) Description 02/08/2024 Orders Only [facility] CHC MED & PEDS [address] [place], [place] [phone] Alma Rosa Preciado MD [address] [place], [place] [phone] Wound of left foot (Primary Dx) Social [...] [facility] [address] [place] [address] Sanchez Preciado 07/08/2025 1:00 PM EDT Office Visit [facility] ADULT DENTAL [address] [place] [address] Shaq Turcios DMD [address] [place] [address] 07/09/2025 9:45 AM EDT Office Visit [facility] MED & PEDS [address] [place] [address] Alma Rosa Preciado MD [address] [place] [address] documented as of this encounter Procedures Procedure [...] PM EDT Narrative 02/28/2024 12:14 PM EDT [place] [address] Magnetic Resonance Report Signed Patient: Caleb Arias MR#: [id number] 8 : 1970 Acct:[id number] Age/Sex: 53 / M ADM Date: 02/26/24 Loc: HO.MRI Attending Dr: Alma Rosa Preciado MD Ordering Physician: Alma Rosa Preciado MD Date of Service: 02/26/24 Procedure(s): MR foot LT wo/w con Accession Number(s): [id number] cc: Alma Rosa Preciado MD EXAMINATION: MR [...] in OV> 02/28/24 1211 DD/ 1620 TD/TT: Dough Maker: Procedure Note Donotuseinterpreter, Image - 02/28/[address] [address] Magnetic Resonance Report Signed Patient: Caleb Arias JMR#: [id number] 8 : 1970Acct:[id number] Age/Sex: 53 / MADM Date: 02/26/24 Loc: HO.MRI Attending Dr: Alma Rosa Preciado MD Ordering Physician: Alma Rosa Preciado MD Date of Service: 02/26/24 Procedure(s): MR foot LT wo/w con Accession Number(s): [id number] cc: Alma Rosa Preciado MD EXAMINATION: MR [...] in OV> 02/28/24 1211 DD/ 1620 TD/TT: Dough Maker: SR us Alma Rosa Preciado MD IMG MRI PROCEDURES Final Re sult documented in this encounter Visit Diagnoses Diagnosis Wound of left foot- Primary documented in this encounter Care Teams Apron Man Relationship Specialty Start Date End Date Alma Rosa Preciado MD [address] [place] [address] PCP - General Internal Medicine 10/22/18 documented as of this encounter
--- OUTSIDE RECORDS SUMMARY | 2025-06-18 16:28 | XMS_ITS | Encounter Summary ---
Author Organization [facility] Address [address] [facility] [address] [place] [address] Phone Care Team Providers Care Airport Screener Name Role Phone Alma Rosa Preciado MD Primary Care Pr ovider Encounter Details Date Type Department Care Team ([facility] Contact Info) Description 05/31/2023 Telephone [facility] Podiatry [address] [place] [address] Destini Huddleston DPM [address] [facility] [address] [place] [address] [email or web address] Social History Tobacco Use Types Packs/Day Years [...] on filedocumented in this encounter Care Teams Airport Screener Relationship Specialty Start Date End Date Alma Rosa Preciado MD PCP - General Internal Medicine 05/21/23 documented as of this encounter Additional Source Comments The information contained in this document represents components of the legal health record. It is not the complete legal health record.[facility]
--- OUTSIDE RECORDS SUMMARY | 2025-06-18 16:28 | XMS_ITS | Encounter Summary ---
Author Organization [employer] Address [address] [place] [address] 7 [place] [address] Care Team Providers Care Terrazzo Finisher Helper Name Role Phone Alma Rosa Preciado MD Primary Care Provider [phone] Encounter Details Date Type Department Care Team ([facility] st Contact Info) Description 03/19/2025 Orders Only [facility] MED & PEDS [address] [place] [address] Alma Rosa Preciado MD [address] [place] [address] Type 2 diabetes mellitus with hyperglycemia, with long-term current use of insulin ([facility]) (Primary Dx) Social History Tobacco Use Types [...] Description 07/06/2025 2:00 PM EDT Office Visit [facility] ADULT DENTAL [address] [place] [address] Sanchez Preciado 07/08/2025 1:00 PM EDT Office Visit [facility] [address] [place] [address] Shaq Turcios DMD [address] [place] [address] 07/09/2025 9:45 AM EDT Office Visit [facility] MED [facility] PEDS [address] [place] [address] Alma Rosa Preciado MD [address] [place] [address] documented as of this encounter Visit Diagnoses Diagnosis Type 2 diabetes mellitus with hyperglycemia, with long-term current use of insulin ([facility])- Primary documented in this encounter Care Teams Terrazzo Finisher Helper Relationship Specialty Start Date End Date Alma Rosa Preciado MD [address] [place] [address] PCP - General Internal Medicine 10/22/18 documented as of this encounter
--- OUTSIDE RECORDS SUMMARY | 2025-06-18 16:28 | XMS_ITS | Encounter Summary ---
Author Organization [employer] Address [address] [place] [address] 7 [place] [address] Care Team Providers Care Dietetics Teacher Name Role Phone Alma Rosa Preciado MD Primary Care Provider [phone] Encounter Details Date Type Department Care Team (Late st Contact Info) Description 03/06/2023 Orders Only [facility] MED & PEDS [address] [place], [place] [phone] Alma Rosa Preciado MD [address] [place] [address] Blister (Primary Dx) Social History Tobacco Use [...] Description 07/06/2025 2:00 PM EDT Office Visit [facility] ADULT DENTAL [address] [place] [address] Sanchez Preciado 07/08/2025 1:00 PM EDT Office Visit [facility] ADULT DENT[facility] [address] [place], [place] [phone] Shaq Turcios DMD [address] [place] [address] 07/09/2025 9:45 AM EDT Office Visit [facility] MED & PEDS [address] [place] [address] Alma Rosa Preciado MD [address] [place] [address] documented as of this encounter Visit Diagnoses Diagnosis Blister- Primary Other, multiple, and unspecified sites, blister, without mention of infection documented in this encounter Care Teams Dietetics Teacher Relationship Specialty Start Date End Date Alma Rosa Preciado MD [address] [place] [address] PCP - General Internal Medicine 10/22/18 documented as of this encounter
--- OUTSIDE RECORDS SUMMARY | 2025-06-18 16:28 | XMS_ITS | Encounter Summary ---
Author Organization [employer] Address [address] [place] [address] [address] [place] [address] Care Team Providers Care Drug Abuse Treatment Specialist Name Role Phone Alma Rosa Preciado MD Primary Care Provider [phone] Encounter Details Date Type Department Care Team (Late st Contact Info) Description 06/29/2023 Orders Only [facility] MED & PEDS [address] [place] [address] Alma Rosa Preciado MD [address] [place] [address] Type 2 diabetes mellitus with hyperglycemia, with long-term current use of insulin ([facility]) (Primary Dx) Social History Tobacco Use [...] 2:00 PM EDT Office Visit [facility] ADULT DENTAL [address] [place], [place] [phone] Sanchez Preciado 07/08/2025 1:00 PM EDT Office Visit [facility] ADULT DENTAL [address] [place] [address] Shaq Turcios DMD [address] [place], [place] [phone] 07/09/2025 9:45 AM EDT Office Visit [facility] MED & PEDS [address] [place] [address] Alma Rosa Preciado MD [address] [place] [address] documented as of this encounter Visit Diagnoses Diagnosis Type 2 diabetes mellitus with hyperglycemia, with long-term current use of insulin ([facility])- Primary documented in this encounter Care Teams Drug Abuse Treatment Specialist Relationship Specialty Start Date End Date Alma Rosa Preciado MD [address] [place] [address] PCP - General Internal Medicine 10/22/18 documented as of this encounter
--- OUTSIDE RECORDS SUMMARY | 2025-06-18 16:28 | XMS_ITS | Encounter Summary ---
Author Organization [facility] Address [address] [place] [address] Phone Care Team Providers Care Credit Card Interviewer Name Role Phone Alma Rosa Preciado MD Primary Care Pr ovider Encounter Details Date Type Department Care Team (Late st Contact Info) Description 10/29/2023 Procedure Pass [facility], [address] [place] [address] Social History Tobacco Use Types Packs/Day Years [...] PM EDT documented as of this encounter Last Filed Vital Signs Vital Sign Reading Time Taken Comments Blood Pressure - - Pulse - - Temperature - - Respiratory Rate - - Oxygen Saturation - - Inhaled Oxygen Concentration - - Weight 90.7 kg (200 lb) 10/30/2023 10:13 AM EST Height 182.9 cm (6') 10/30/2023 10:13 AM EST Body Mass Index 27.12 10/30/2023 10:13 AM EST documented in this encounter Plan of Treatment Not on file documented as of this encounter Visit Diagnoses Not on filedocumented in this encounter Care Teams Credit Card Interviewer Relationship Specialty Start Date End Date Alma Rosa Preciado MD PCP - General Internal Medicine 05/21/23 documented as of this encounter Additional Source Comments The information contained in this document represents components of the legal health record. It is not the complete legal health record.[facility]
[2025-06-18 17:39] VITALS: BP 150/75; PULSE 88; RESP 15; TEMP 36.8; O2SAT 94
--- NOTE | 2025-06-18 17:54 | PC.NURSE ---
patient a&ox3, vss, pt medicated per order, dressing applied to toe per provider request, pt to discharge and f/u with wound.
[2025-06-18 17:55] VITALS: BP 150/75; PULSE 88; RESP 15; TEMP 36.8; O2SAT 94
== END 2025-06-18 17:55 | disposition home or self-care (01) ==
PROVIDERS: Physician Assistant Medical; Emergency Provider Emergency Medicine; PCP Internal Medicine
DX: L03.032 Cellulitis of left toe (principal); M86.672 Other chronic osteomyelitis, left ankle and foot; S91.105A Unspecified open wound of left lesser toe(s) without damage to nail, initial encounter; E11.40 Type 2 diabetes mellitus with diabetic neuropathy, unspecified; E11.22 Type 2 diabetes mellitus with diabetic chronic kidney disease; I12.9 Hypertensive chronic kidney disease with stage 1 through stage 4 chronic kidney disease, or unspecified chronic kidney disease; M20.42 Other hammer toe(s) (acquired), left foot; N18.9 Chronic kidney disease, unspecified; X58.XXXA Exposure to other specified factors, initial encounter; Y93.89 Activity, other specified; Y92.89 Other specified places as the place of occurrence of the external cause; Y99.8 Other external cause status; Z79.899 Other long term (current) drug therapy
CPT/HCPCS: 36415; 73630; 80048; 80076; 83735; 85025; 99283; 99284

== ENCOUNTER → 2025-06-18 12:36 | Outpatient (BNV) | payer MEDICAID, SELFPAY | PROVIDERS: PCP Internal Medicine; Visit Provider Radiology Diagnostic Radiology | DX: M25.775 Osteophyte, left foot (principal) | CPT/HCPCS: 73630 ==